=== PATIENT | male | born 1945 | race Caucasian/White ===

== ENCOUNTER 2017-12-29 13:51 | Inpatient (IN) | payer MEDICARE, BC ==
[~2017-12-29] VITALS: Ht 182.9 cm; Wt 113.4 kg
--- NOTE | 2017-12-29 13:57 | ER Report ---
History and Physical Time Seen By MD: 13:59 HPI/ROS CHIEF COMPLAINT: Cough, headache and malaise HISTORY OF PRESENT ILLNESS: This is a 72-year-old male who presents to the emergency department for a cough, headache and malaise. Patient was sent from urgent care today for concerns about a community-acquired pneumonia and consideration of a possible admission to the hospital. [place] and developed a cough generalized headache and some malaise. Patient also had some bright red blood per rectum, history kidney failure, had elevated wbc's at urgent care with a left shift. Was also noted to be anemic. Patient was also noted to have some circumoral cyanosis at urgent care. Positive Hemoccult stool. recently diagnosed with rhonchi does, there was a questionable right lower lobe infiltrate per the provider at urgent care. The patient states that on Friday he developed a mild cough presently getting worse nonproductive with some increased shortness of breath. Patient also states that since then he's had some generalized malaise, headache. Patient states that it's very painful to the right side of his chest when he coughs. Patient denies fevers, visual changes, no chills, no rashes. REVIEW OF SYSTEMS: Constitutional: No fever, no chills. Eyes: No discharge. ENT: No sore throat. Cardiovascular: As above. Respiratory: As above. Gastrointestinal: As above. Genitourinary: No hematuria. Musculoskeletal: No back pain. Skin: No rashes. Neurological: As above. Allergies: Coded Allergies: No Known Drug Allergies (Unverified , 12/29/17) Home Meds Reported Medications Potassium Chloride (POTASSIUM CHLORIDE) 10 Meq Tab.er.prt, 30 MEQ PO QDAY 12/29/17 Spironolactone (ALDACTONE) 50 Mg Tablet, 50 MG PO DAILY 12/29/17 Furosemide (FUROSEMIDE) 80 Mg Tablet, 1 TAB PO DAILY, TAB 12/29/17 Febuxostat (ULORIC) 40 Mg Tablet, 40 MG PO DAILY 12/29/17 Metolazone (METOLAZONE) 2.5 Mg Tablet, 2.5 MG PO M,W,F 12/29/17 Metoprolol Succinate (METOPROLOL SUCCINATE) 25 Mg Tab.er.24h, 1 TAB PO QDAY, TAB 12/29/17 Esomeprazole Magnesium (Esomeprazole Magnesium) 40 Mg Capsule.dr, 40 MG PO BID 12/29/17 Apixaban (Eliquis) 5 Mg (74 Tabs) Tab.ds.pk, 5 MG PO BID 12/29/17 Discontinued Reported Medications Spironolactone (SPIRONOLACTONE) 25 Mg Tablet, 50 MG PO DAILY, TAB 12/29/17 Furosemide (FUROSEMIDE) 40 Mg Tablet, 2 TAB PO QDAY, TAB 12/29/17 Aspirin (ASPIR 81) 81 Mg Tablet.dr, 81 MG PO QDAY, TAB 12/29/17 Past Medical/Surgical History Patient has a past medical and surgical history of A. fib, hypertension, GERD, gallbladder disease, cholecystectomy, carpal tunnel release, bilateral knee replacements, bilateral shoulder surgery, back surgery. 40+ years of smoking history. DVT. Reviewed Nurses Notes: Yes Constitutional Vital Sign - Last 24 Hours 12/29/17 12/29/17 12/29/17 12/29/17 13:56 14:00 14:00 14:15 Temp 97.8 Pulse 94 91 84 Resp 22 15 B/P (MAP) 136/102 140/95 (110) Pulse Ox 95 98 98 O2 Delivery Room Air O2 Flow Rate 2.0 12/29/17 12/29/17 12/29/17 12/29/17 14:30 14:45 15:00 15:15 Pulse 77 80 78 72 Resp 14 15 21 9 B/P (MAP) 147/85 (105) 134/89 (104) 149/70 (96) 141/78 (99) Pulse Ox 96 99 98 99 12/29/17 12/29/17 12/29/17 12/29/17 15:30 15:45 15:56 16:15 Pulse 67 66 71 Resp 8 15 11 B/P (MAP) 135/68 (90) 122/42 (68) 137/74 (95) 112/58 (76) Pulse Ox 100 100 100 12/29/17 16:30 Pulse 74 Resp 15 B/P (MAP) 149/70 (96) Pulse Ox 99 Intake and Output 12/29/17 12/29/17 12/30/17 14:59 22:59 06:59 Intake Total 500 ml Balance 500 ml Physical Exam General Appearance: The patient is alert, has no immediate need for airway protection and no signs of toxicity, lips are pale with some mild circumoral cyanosis. Eyes: Pupils equal and round no pallor or injection. Pale conjunctiva. ENT, Mouth: Pale mucous membranes are moist. Respiratory: There are no retractions, lungs are clear to auscultation, slightly diminished in the right lower lobe. Cardiovascular: Regular rate and rhythm, no murmurs, clicks or rubs. Gastrointestinal: Abdomen is soft and non tender, no masses, bowel sounds normal. light hematochezia. Neurological: Alert and oriented 4. Moving all extremities. Following all commands. No focal neuro deficits. Skin: Warm and dry, no rashes. Musculoskeletal: Neck is supple non tender. Extremities are nontender, nonswollen and have full range of motion. DIFFERENTIAL DIAGNOSIS: After history and physical exam differential diagnosis was considered for shortness of breath including but not limited to pulmonary infectious process, COPD, asthma, pulmonary embolus and congestive heart failure. Medical Decision Making Data Points Laboratory Hematology Test 12/29/17 14:12 Troponin I < 0.012 ng/ml Chemistry Test 12/29/17 14:12 Troponin I < 0.012 ng/ml EKG/Imaging EKG Interpretation 12 lead EKG: [place] EKG 1446. Rhythm: Normal sinus rhythm, ventricular rate 78 bpm. [place]: normal QRS: normal ST segments: No ST depression or elevation identified. No previous EKG to compare to. ED Course/Re-evaluation Clinical Indication for ER IV: Hydration, IV Access ED Course The patient was admitted to room. A history and physical or pain. Differential diagnoses were considered. An IV was started. I did not repeat the CBC or chemistry. I did add a troponin which was negative. EKG showing normal sinus rhythm.CBC showing WBCs 14.1 with a left shift, hemoglobin 9.7 hematocrit 28.8, chemistry showing potassium 3.3, BUN 60, creatinine 3.50, GFR 17.3, patient does have a known history of renal disease has been evaluated by a him assistant couple of years ago in [place]. The patient was sent from urgent care in the was aware that his white blood cell count was elevated as well as his poor kidney function. My concern with his shortness of breath as well as pleuritic chest pain on the right, even though anticoagulated would be the development of a PE as the patient has recently arrived in [place] less than 5 days ago. Patient also had a failed DVT outpatient treatment on Xarelto and was changed to Eliquis. Patient was also Hemoccult stool positive. I did speak with Dr. Anjali Barry regarding the patient's case as noted below and she felt he would be better served in a hospital that could provide him with a VQ scan as we cannot do a CTA due to the patient's kidney function, also consideration of IVC filter and a scope looking for a lower GI bleed. I discussed this with the patient and he said that he would not be able to [facility] and would never have an IVC filter placed as noted below at which time I did contact Dr. Anjali Barry again and ultimately the patient was admitted to the hospital for anemia, GI bleed, shortness of breath and chest pain. They will try for a VQ scan tomorrow. And consult with Dr. Sarabia for possible colonoscopy.Patient was typed and screened, given a 500 mL normal saline bolus. The patient and other questions or concerns at this time and was admitted to the medical unit. 12/29/2017 3:29:41 pm I did speak with Dr. Anjali Barry, the hospital list on- call regarding the patient's case. I'm having the images pushed over from urgent care to our system and she will evaluate the chest x-ray and will make a decision after this. 12/29/2017 4:38:05 pm I did speak with Dr. Anjali Barry regarding the patient's case as noted above and she did initially feel that it would be best to send the patient [facility] for possible VQ scan possible IVC filter implantation as well as monitoring of his renal function and a scope for GI bleed. I did talk to the patient regarding the concerns about admitting him to the hospital here as we don't have all of the resources available, the patient said he would never get out of IVC filter placed, does not want to go to [facility] and added to which his is blind and is unable to fully care for herself he needs to help and she is unable to drive. 12/29/2017 4:39:39 pm I did call and talk to Dr. Anjali Barry again regarding the patient's and his concerns were, she is distally willing to accept the patient in to the hospitalist services for a GI bleed. I also talked to the Dr. Sarabia upon her request just to give him an update on the patient and possible scoping in the next several days. I did talk to the patient again and he is willing to the admitted to the hospital. The patient had no other questions or concerns at this time. Decision to Disposition Date: Dec 29, 2017 Decision to Disposition Time: 16:40 Depart Departure Latest Vital Signs Vital Signs Date Time Temp Pulse Resp B/P (MAP) Pulse Ox O2 Delivery O2 Flow Rate FiO2 12/29/17 16:30 74 15 149/70 (96) 99 12/29/17 14:00 2.0 12/29/17 13:56 97.8 Room Air Impression: Primary Impression: Lower GI bleed Additional Impressions: Anemia Cough Chest pain Condition: Improved Disposition: Admitted from ER Problem Qualifiers Additional Impressions: Anemia Anemia type: iron deficiency Iron deficiency anemia type: unspecified iron deficiency Qualified Codes: D50.9 - Iron deficiency anemia, unspecified Chest pain Chest pain type: chest pain on breathing Qualified Codes: R07.1 - Chest pain on breathing SAMIRA ZAMORA-EDUARDO Dec 29, 2017 13:57
[2017-12-29] MEDS ORDERED: FURO-47 PO (14:10)
[2017-12-29] MEDS ORDERED: ESOM40CA6 PO (14:10)
[2017-12-29] MEDS ORDERED: APIX5TAB4 PO (14:10)
[2017-12-29] MEDS ORDERED: SPIR25TA78 PO (14:10)
[2017-12-29] MEDS ORDERED: METO25TA23 PO (14:10)
[2017-12-29] MEDS ORDERED: FEBU40TA2 PO (14:10)
[2017-12-29] MEDS ORDERED: ASPI-1471 PO (14:10)
[2017-12-29] MEDS ORDERED: METO2.5T15 PO (14:10)
[2017-12-29] MEDS ORDERED: POTA-23 PO (14:10)
[2017-12-29] MEDS ORDERED: NS(*) 0.9% 500 ML BAG 500 ML IV ONE (14:30)
--- NOTE | 2017-12-29 14:52 | EKG ---
[facility] PATIENT NAME: MEHRAN KANG : [id number] MR: [id number] V: [id number] EXAM DATE: ORDERING PHYSICIAN: SAMIRA ZAMORA TECHNOLOGIST: YAMIL Test Reason : SOB Blood Pressure : / mmHG Vent. Rate : 078 BPM Atrial Rate : 078 BPM P-R Int : 154 ms QRS Dur : 096 ms QT Int : 424 ms P-R-T Axes : 045 041 026 degrees QTc Int : 483 ms Normal sinus rhythm Nonspecific ST-T wave changes Prolonged QT Abnormal ECG No previous ECGs available Confirmed by LUIS FELIPE CARRERO ([id number]) on 12/29/2017 8:54:41 PM Referred By: CLAY Confirmed By:LUIS FELIPE CARRERO
--- NOTE | 2017-12-29 17:22 | General Surgery Consultation ---
History of Present Illness Requesting Physician dr misbah barreto Reason for Consult blood per rectum Chief Complaint shortness of breath History of Present Illness 72 yo male who recently moved to [place]. he has a history of a fib and is on eliquis. he has a history of dvt. he has htn. he noticed a little blood on the tissue when he wipes the last few days. no black stools. no bloody stools no clots. he has had loose stools. no abdominal pain. he had an egd 2 years ago which revealed benign gastric polyps. he had a colonoscopy 2 years ago that showed diverticulosis and 2 small polyps. no smoking and no nsaid use. History Home Meds Reported Medications Febuxostat (ULORIC) 40 Mg Tablet, 40 MG PO DAILY 12/29/17 Spironolactone (SPIRONOLACTONE) 25 Mg Tablet, 50 MG PO DAILY, TAB 12/29/17 Metolazone (METOLAZONE) 2.5 Mg Tablet, 2.5 MG PO M,W,F 12/29/17 Metoprolol Succinate (METOPROLOL SUCCINATE) 25 Mg Tab.er.24h, 1 TAB PO QDAY, TAB 12/29/17 Furosemide (FUROSEMIDE) 40 Mg Tablet, 2 TAB PO QDAY, TAB 12/29/17 Esomeprazole Magnesium (Esomeprazole Magnesium) 40 Mg Capsule.dr, 40 MG PO BID 12/29/17 Potassium Chloride (KLOR-CON 10) 10 Meq Tablet.er, 30 MEQ PO BID 12/29/17 Apixaban (Eliquis) 5 Mg (74 Tabs) Tab.ds.pk, 5 MG PO BID 12/29/17 Aspirin (ASPIR 81) 81 Mg Tablet.dr, 81 MG PO QDAY, TAB 12/29/17 Allergies: Coded Allergies: No Known Drug Allergies (Unverified , 12/29/17) Review of Systems Respiratory: Shortness of Breath Exam Vital Signs Vital Signs Date Time Temp Pulse Resp B/P (MAP) Pulse Ox O2 Delivery O2 Flow Rate FiO2 12/29/17 16:45 75 27 123/37 (65) 98 12/29/17 13:56 97.8 Room Air General Appearance: Alert, Awake, No Acute Distress GI: Abd Soft and Non-Tender Assessment and Plan Problems: (1) Lower GI bleed Status: Acute Assessment & Plan: pt currently anticoagulated. he does not describe significant bleeding but his hgb is low at 9.7. he had a recent egd and colonoscopy and if he has no significant bleeding prob does not require endoscopy at this time. will check cbc and watch for blood per rectum. will scope if he appears to be bleeding and he is no longer anticoagulated. Copies to: ROME ARCHER MD Venous Thromboembolism Antithrombotics Is Pt On Any Antithrombotics?: Yes ROME ARCHER MD Dec 29, 2017 17:22
[2017-12-29 17:39] VITALS: BP 148/88
[2017-12-29 18:56] VITALS: BP 134/87
--- NOTE | 2017-12-29 19:17 | History & Physical ---
History of Present Illness Chief Complaint The patient is a 72 year old male with PMH significant for atrial fibrillation and hx of DVT who presents with chest pain, shortness of breath and dizziness since arriving in [place] last after moving from [place], [place]. History of Present Illness The patient states that he drove from [place], [place] last week. He arrived in [place] afternoon and developed symptoms of dizziness, cough, headache and shortness of breath on Friday. The patient drove 8 hours a day but stopped every 1.5 to 2 hours to use the restroom due to diuretic therapy. He has a history of chronic LE edema after multiple knee surgeries. He also has a history of DVT in his L lower leg which developed while he was taking Xarelto for a fib. He was switched to Coumadin but didn't like it and is now on Eliquis 5mg bid. He has had no further trouble. He has had chronic GERD and had chest pain which he was told was likely due to esophageal spasm 2 weeks ago. He was evaluated for chest pain and had a nuclear stress test which he reports was negative for ischemia. The patient also complains of loose stools over the past week. He states that the stool is brown and free of BRB, but when he wipes, there has been BRB on the toilet paper for the past 3-4 days. He has also had some rectal incontinence with the loose stool when he coughs. He does have some BRP on the incontinence pad with this. He denies history of hemorrhoids. He does admit that his rectum has been sore and irritated. He denies melena. He states his stools have been greenish brown. He had and EGD and colonoscopy 2 years ago. He reportedly had some gastric polyps. 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 He has a history of chronic renal failure and saw his roll out manager about a month ago. He states he has had stage 4 CKD. The patient denies chills but states his thought he felt a bit warm on Friday. His cough was initially productive of a dark brown sputum but now his sputum is thick and white. He initially presented to Acute Care and had labs done (see other visit "send-in " for results). His d-dimer was 0.37. WBC was elevated at 14K. Creatinine was 3.5. Potassium was 3.3. Hgb 9.7. CXR done at Urgent Care was "pushed" to [facility]. It was negative for any acute process. History Problems: (1) Neuropathy Status: Chronic (2) Gout Status: Chronic (3) Leg edema Status: Chronic (4) HTN (hypertension) Status: Chronic (5) GERD (gastroesophageal reflux disease) Status: Chronic (6) CKD (chronic kidney disease), stage IV Status: Chronic (7) CHRONIC ATRIAL FIBRILLATION Status: Chronic (8) DVT (deep venous thrombosis) Status: Resolved Home Meds Reported Medications Potassium Chloride (POTASSIUM CHLORIDE) 10 Meq Tab.er.prt, 30 MEQ PO QDAY 12/29/17 Spironolactone (ALDACTONE) 50 Mg Tablet, 50 MG PO DAILY 12/29/17 Furosemide (FUROSEMIDE) 80 Mg Tablet, 1 TAB PO DAILY, TAB 12/29/17 Febuxostat (ULORIC) 40 Mg Tablet, 40 MG PO DAILY 12/29/17 Metolazone (METOLAZONE) 2.5 Mg Tablet, 2.5 MG PO M,W,F 12/29/17 Metoprolol Succinate (METOPROLOL SUCCINATE) 25 Mg Tab.er.24h, 1 TAB PO QDAY, TAB 12/29/17 Esomeprazole Magnesium (Esomeprazole Magnesium) 40 Mg Capsule.dr, 40 MG PO BID 12/29/17 Apixaban (Eliquis) 5 Mg (74 Tabs) Tab.ds.pk, 5 MG PO BID 12/29/17 Discontinued Reported Medications Spironolactone (SPIRONOLACTONE) 25 Mg Tablet, 50 MG PO DAILY, TAB 12/29/17 Furosemide (FUROSEMIDE) 40 Mg Tablet, 2 TAB PO QDAY, TAB 12/29/17 Aspirin (ASPIR 81) 81 Mg Tablet.dr, 81 MG PO QDAY, TAB 12/29/17 Allergies: Coded Allergies: No Known Drug Allergies (Unverified , 12/29/17) Patient History: FH: CAD (coronary artery disease) MOTHER Other Social/Family Hx The patient moved to [place] last from [place], [place]. He is . 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 He was in the . His father before he was born in war. Hx Smoking: Yes Hx Alcohol Use: Yes Hx Substance Use Disorder: No Social Drug Use: Currently Social Drugs: Marijuana (Medical marijuana and oils.) History of IV Drug Use: No Review of Systems Constitutional: Fever ( felt he was slightly warm to the touch.), No Chills Neurological: Weakness, Dizziness Eyes: No Vision Change ENT: No Hearing Loss Cardiovascular: Chest Pain (Pleuritic chest pain with deep breaths.) Respiratory: Shortness of Breath, Cough Gastrointestinal: No Nausea, No Vomiting, Diarrhea (Loose stools. Some BRB with wiping.), No Hematemesis, No Melena Genitourinary: Other (Frequency of urination on diuretics.) Musculoskeletal: Pain (DJD, knee surgeries, shoulder surgeries, back surgery.) Psychiatric: Depression, Anxiety Exam Vital Signs Vital Signs Date Time Temp Pulse Resp B/P (MAP) Pulse Ox O2 Delivery O2 Flow Rate FiO2 12/29/17 18:56 98.5 70 134/87 (103) 95 Nasal Cannula 0.5 12/29/17 17:39 12 General Appearance: Alert, Awake, No Acute Distress, Afebrile Neuro: No Gross deficits Eyes: PERRLA Cardiovascular: Regular Rate and Rhythm Respiratory: Clear to Auscultation GI: Abd Soft and Non-Tender Extremities: Warm, Perfused, Other (No significant edema. No calf tenderness. Bilateral well healed scars over knees.) Integumentary: Skin Intact without Lesion / Mass Psych: Alert & Oriented X3, Appropriate Mood & Affect Medical Decision Making Data Points Item Value Date Time Troponin I < 0.012 ng/ml 12/29/17 1412 Item Value Date Time Prothrombin Time 17.1 seconds H 12/29/17 1153 Prothromb Time International Ratio 1.37 12/29/17 1153 D-Dimer Quantitative (PE/DVT) 0.37 ug/ml 12/29/17 1153 White Blood Count 14.1 k/uL H 12/29/17 1153 Red Blood Count 3.65 M/uL L 12/29/17 1153 Hemoglobin 9.7 g/dL L 12/29/17 1153 Hematocrit 28.8 % L 12/29/17 1153 Mean Corpuscular Volume 78.9 fL L 12/29/17 1153 Mean Corpuscular Hemoglobin 26.4 pg 12/29/17 1153 Mean Corpuscular Hemoglobin Concent 33.5 g/dL 12/29/17 1153 Red Cell Distribution Width 15.1 % H 12/29/17 1153 Platelet Count 474 K/uL H 12/29/17 1153 Mean Platelet Volume 6.9 fL L 12/29/17 1153 Neutrophils (%) (Auto) 73.2 % H 12/29/17 1153 Lymphocytes (%) (Auto) 14.7 % L 12/29/17 1153 Monocytes (%) (Auto) 10.1 % 12/29/17 1153 Eosinophils (%) (Auto) 1.4 % 12/29/17 1153 Basophils (%) (Auto) 0.6 % 12/29/17 115 Nucleated RBC Relative Count (auto) 0.1 /100WBC 12/29/17 1153 Neutrophils # (Auto) 10.3 K/uL H 12/29/17 1153 Lymphocytes # (Auto) 2.1 K/uL 12/29/17 1153 Monocytes # (Auto) 1.4 K/uL H 12/29/17 1153 Eosinophils # (Auto) 0.2 K/uL 12/29/17 1153 Basophils # (Auto) 0.1 K/uL 12/29/17 1153 Nucleated RBC Absolute Count (auto) 0.01 K/uL 12/29/17 1153 Peripheral Blood Smear No Y/N 12/29/17 1153 Sodium Level 140 mmol/L 12/29/17 1153 Potassium Level 3.3 mmol/L L 12/29/17 1153 Chloride Level 95 mmol/L L 12/29/17 1153 Carbon Dioxide Level 23 mmol/L 12/29/17 1153 Blood Urea Nitrogen 60 mg/dl H 12/29/17 1153 Creatinine 3.50 mg/dl H 12/29/17 1153 Glomerular Filtration Rate Calc 17.3 12/29/17 1153 Random Glucose 140 mg/dl H 12/29/17 1153 Calcium Level 10.2 mg/dl 12/29/17 1153 Total Bilirubin 0.6 mg/dl 12/29/17 1153 Aspartate Amino Transf (AST/SGOT) 55 U/L H 12/29/17 1153 Alanine Aminotransferase (ALT/SGPT) 45 U/L 12/29/17 1153 Alkaline Phosphatase 98 U/L 12/29/17 1153 Total Protein 8.6 gm/dl H 12/29/17 1153 Albumin 5.0 g/dl 12/29/17 1153 Troponin I < 0.012 ng/ml 12/29/17 1412 EKG / Imaging EKG Interpretation FACILITY: [facility] [place] PATIENT NAME: MEHRAN KANG : [id number] MR: [id number] V: [id number] EXAM DATE: ORDERING PHYSICIAN: SAMIRA ZAMORA TECHNOLOGIST: YAMIL Test Reason : SOB Blood Pressure : / mmHG Vent. Rate : 078 BPM Atrial Rate : 078 BPM P-R Int : 154 ms QRS Dur : 096 ms QT Int : 424 ms P-R-T Axes : 045 041 026 degrees QTc Int : 483 ms Normal sinus rhythm ST abnormality, possible digitalis effect Prolonged QT Abnormal ECG No previous ECGs available Referred By: CLAY Confirmed By: [id number] T: / Imaging CXR done at Urgent Care read as negative by radiologist. Negative also to my review. Pre-Admit Course Medical Record Review: Yes (Labs from Urgent Care, CXR, ER notes.) Assessment and Plan Problems: (1) Altitude sickness Status: Acute Assessment & Plan: The patient's symptoms of SOB, dizziness, and headache developed shortly after arriving in [place]. He developed a cough as well. CXR from Urgent Care was negative. He notes that he felt much better immediately after being placed on O2 in the ER. Will continue O2 and repeat CXR in am. (2) Pleuritic chest pain Status: Acute Assessment & Plan: May be due to altitude sickness. CXR negative. D-dime 0.37. He does have a history of DVT about 5-6 years ago and has been on Eliquis. VQ scan ordered for tomorrow. (3) Loose stools Status: Acute Assessment & Plan: For about one week. No associated symptoms. If persistent, consider stool studies. (4) Rectal irritation Status: Acute Assessment & Plan: He has been having BRB just when he wipes after BM and also some on a pad that he has been wearing due to rectal incontinence with the loose stools. He denies melena or BRB mixed with the stools he passes. (5) CHRONIC ATRIAL FIBRILLATION Status: Chronic Assessment & Plan: Currently in sinus rhythm. Will continue Eliquis. (6) CKD (chronic kidney disease), stage IV Status: Chronic Assessment & Plan: He has some acute worsening. Will gently hydrate and follow labs. Renally dose meds. (7) HTN (hypertension) Status: Chronic Assessment & Plan: Continue metoprolol. Will hold diuretics for now due to acute worsening of renal function. (8) GERD (gastroesophageal reflux disease) Status: Chronic Assessment & Plan: He is on Nexium at home. Will place on pantoprazole here. (9) Leg edema Status: Chronic Assessment & Plan: He is on Lasix 80mg with metolazone 2.5mg -- and spironolactone 50mg daily. Will hold for now. He takes KCl 30meq bid with his diuretics. (10) DVT (deep venous thrombosis) Status: Resolved Assessment & Plan: On Eliquis for a fib and hx of DVT. (11) Gout Status: Chronic Assessment & Plan: He is on Uloric 40mg daily. (12) ANEMIA, UNSPECIFIED Status: Acute Assessment & Plan: Unclear if this is acute or chronic. May be due to CKD and/ or some blood loss from rectal irritation. Repeat CBC and get iron studies in am. Time Spent on Plan of Care: < 30 min Venous Thromboembolism Antithrombotics Is Pt On Any Antithrombotics?: Yes Exam Sepsis Risk: Possible Sepsis Risk Problem Qualifiers (1) Altitude sickness: Encounter type: initial encounter Qualified Codes: T70.29XA - Other effects of high altitude, initial encounter LUIS FELIPE TORRES MD Dec 29, 2017 19:16
[2017-12-29] MEDS ORDERED: FURO80TA70 PO (19:20)
[2017-12-29] MEDS ORDERED: SPIR50TA30 PO (19:20)
[2017-12-29] MEDS ORDERED: POTA-53 PO (19:24)
[2017-12-29] MEDS: POTASSIUM CHL 10 MEQ TABCR PO SCH (20:03)
[2017-12-29] MEDS ORDERED: APIXABAN 2.5 MG TABLET PO SCH (21:00)
[2017-12-29] MEDS: PANTOPRAZOLE SOD 40 MG TABEC PO SCH (21:06)
[2017-12-29] MEDS: NS(*) 0.9% 1000 ML BAG 1,000 ML IV PRN (21:22)
[2017-12-29] MEDS: MELATONIN 3 MG TAB PO PRN (22:33)
[2017-12-30 03:45] VITALS: BP 94/51
[2017-12-30 05:48] LABS: PLATELET COUNT, AUTOMATED 351 K/uL (150-450)
--- NOTE | 2017-12-30 06:41 | RADIOLOGY IMAGING REPORT ---
FACILITY: [facility] [place] PATIENT NAME: Dima Dey : 1945 MR: [id number] V: [id number] EXAM DATE: ORDERING PHYSICIAN: LUIS FELIPE TORRES [place]CHN[place]: [place] [facility] [place] : 1945 Visit/Account:[id number] Date of Sevice: 12/30/2017 PORTABLE CHEST: Indication: Chest pain. Technique: A single frontal film was obtained. Comparison: None. Skeletal and soft tissue structures: There are chronic degenerative changes in the thoracic spine. No acute skeletal deformity is identified. Heart and mediastinum: Within normal limits. Lung gill: Well-expanded. No focal or diffuse opacities. Pleural spaces: Unremarkable. Impression: No acute process. Report Dictated By: Dima Kellogg MD at 12/30/2017 6:35 AM Report E-Signed By: Dima Kellogg MD at 12/30/2017 6:36 AM WSN:[id number]
--- NOTE | 2017-12-30 07:05 | General Surgery Progress Note ---
Subjective Progress Notes Subjective no complaints. Physical Exam Vital Signs Date Time Temp Pulse Resp B/P (MAP) Pulse Ox O2 Delivery O2 Flow Rate FiO2 12/30/17 04:02 91 12/30/17 03:45 98.4 57 14 94/51 (65) Room Air 12/29/17 23:02 0.5 General Appearance: Alert, Awake, No Acute Distress GI: Soft and Non-Tender (had bm last pm and he says only a little blood with wiping. no bloody stool) Result Diagram: 12/30/17 0515 12/30/1715 Assessment and Plan Problems: (1) Lower GI bleed Status: Acute Assessment & Plan: pt currently anticoagulated. he does not describe significant bleeding but his hgb is low at 9.7. he had a recent egd and colonoscopy and if he has no significant bleeding prob does not require endoscopy at this time. will check cbc and watch for blood per rectum. will scope if he appears to be bleeding and he is no longer anticoagulated. 12/30/17 hgb down a little today. one bm overnight without blood in stool just with wiping. Exam Sepsis Risk: No Definite Risk ROME ARCHER MD Dec 30, 2017 07:05
[2017-12-30 07:24] VITALS: BP 117/65
[2017-12-30] MEDS: PANTOPRAZOLE SOD 40 MG TABEC PO SCH ×2 (08:49→21:33)
[2017-12-30] MEDS: METOPROLOL SUCC XL 25 MG TABCR PO SCH (08:49)
[2017-12-30] MEDS: POTASSIUM CHL 10 MEQ TABCR PO SCH ×2 (08:49→16:29)
[2017-12-30] MEDS: FEBUXOSTAT 40 MG TABLET PO SCH (09:00)
[2017-12-30] MEDS ORDERED: PATIENT'S OWN MED PO SCH (09:00)
--- NOTE | 2017-12-30 11:31 | Hospitalist Progress Note ---
Subjective Progress Notes Subjective This patient was admitted for anemia and GI bleeding. He had no acute events overnight. Patient Complains of: Cardiovascular: No: Chest Pain Respiratory: No: Shortness of Breath Physical Exam Vital Signs Date Time Temp Pulse Resp B/P (MAP) Pulse Ox O2 Delivery O2 Flow Rate FiO2 12/30/17 07:27 92 Room Air 12/30/17 07:24 98.4 67 16 117/65 (82) 12/29/17 23:02 0.5 Intake and Output 12/31/17 06:59 Intake Total 240 ml Balance 240 ml Intake Oral 240 ml Neuro: No Gross deficits Cardiovascular: Regular Rate and Rhythm Respiratory: Clear to Auscultation Extremities: No Edema Integumentary: No Cyanosis Result Diagram: 12/30/1715 12/30/17514 Assessment and Plan Problems: (1) Acute anemia Assessment & Plan: He does have a low Hgb, but has not yet required transfusion. (2) Altitude sickness Status: Acute Assessment & Plan: He did complain of headache and shortness of breath. His symptoms improved with supplemental oxygen. He has been able to wean to room air today. (3) Pleuritic chest pain Status: Acute Assessment & Plan: He has been on chronic treatment with Eliquis, which is currently on hold. A VQ scan is pending. (4) Rectal irritation Status: Acute Assessment & Plan: He is complaining of bright red blood with wiping. General surgery is following him for this. (5) CHRONIC ATRIAL FIBRILLATION Status: Chronic Assessment & Plan: He is currently in sinus rhythm.He is on chronic treatment with metoprolol and Eliquis. The Eliquis is on hold as above. (6) CKD (chronic kidney disease), stage IV Status: Chronic (7) HTN (hypertension) Status: Chronic Assessment & Plan: He is on chronic treatment with metoprolol, Spironolactone, Lasix, and metolazone. The metoprolol is ordered, but the other medications remain on hold. (8) GERD (gastroesophageal reflux disease) Status: Chronic Assessment & Plan: He is on chronic treatment with Nexium. (9) Leg edema Status: Chronic Assessment & Plan: Daily weights are ordered. (10) DVT (deep venous thrombosis) Status: Resolved Assessment & Plan: He does have a history of DVT. (11) Gout Status: Chronic Assessment & Plan: He is on Uloric 40mg daily. Exam Sepsis Risk: No Definite Risk Problem Qualifiers (1) Altitude sickness: Encounter type: initial encounter Qualified Codes: T70.29XA - Other effects of high altitude, initial encounter (2) HTN (hypertension): Hypertension type: essential hypertension Qualified Codes: I10 - Essential ( primary) hypertension AURE HUMPHREY DO Dec 30, 2017 11:30
[2017-12-30 11:46] VITALS: BP 119/54
--- NOTE | 2017-12-30 12:11 | RADIOLOGY IMAGING REPORT ---
FACILITY: [facility] PATIENT NAME: Dima Dey : 1945 MR: [id number] V: [id number] EXAM DATE: ORDERING PHYSICIAN: LUIS FELIPE TORRES TECHNOLOGIST: Location: [facility] Patient: Dima Dey : 1945 Visit/Account:[id number] Date of Sevice: 12/30/2017 LUNG PERFUSION AND VENTILATION EXAMINATION: Nuclear Medicine Ventilation Perfusion Lung Scan Additional Pertinent history: History of DVT, pleuritic chest pain COMPARISON STUDIES: X-ray examination of the chest from earlier today. TECHNIQUE: 39.0 mCi aerosolized technetium 99 DTPA was administered by inhalation. 2.5 mCi Tc MAA was injected intravenously. Gamma camera images were obtained of the chest in various orientations. FINDINGS: Lung ventilation radiotracer distribution: Mild activity is noted over the stomach on ventilation linda ges in indicative of swallowing of the aerosolized technetium. Minimal air trapping right base. Lung perfusion radiotracer distribution: No evidence of wedgelike vascular defect. Correlation to chest x-ray: No infiltrate, effusion or evidence of CHF. IMPRESSION: 1.By modified PIOPED criteria, low probability for pulmonary embolus. Report Dictated By: Ferdinand Bernstein MD at 12/30/2017 12:03 PM Report E-Signed By: Ferdinand Bernstein MD at 12/30/2017 12:07 PM WSN:[id number]
[2017-12-30 14:12] VITALS: BP 99/56
--- NOTE | 2017-12-30 16:35 | Medical Nutrition Therapy ---
Nutrition Anthropometrics Height (Inches): 72.00 Height (Calculated Centimeters: 182.792760 Weight (Pounds): 245 Weight (Calculated Kilograms): 111.130 BMI: 33 Lan Nutrition Score: Adequate Lan Nutrition Risk Score: 21 Dietary Referral Nutrition Risk Factors: Nutrition Risk Comment: Physical Findings Physical Appearance: Obese BMI 30-39 Skin Appearance Skin Appearance: Edema Edema Location Modifier: Both Edema Location: Lower Extremity Type of Edema: Degree of Edema: 1+ Gastrointestinal Symptoms GI Symtoms: Diarrhea, Change in Bowel Pattern Tube Present: Bowel Sounds: Recent Bowel Pattern: Stool Characteristics: Soft, Loose Nutritional Diagnosis Nutritional Risk Acuity 2: Chronic Renal Failure Nutritional Risk Acuity 3: Nutrit Anemia, GERD, GI Bleed Past Medical History: Lower GI bleed, chest pain, GERD, CKD stage IV, rectal irritation, CAF, leg edema, gout, altitude sickness, HTN, anemia Nutritional Acuity: 2-Moderate Nutrition Diagnosis: Decreased Nutrient Needs, Altered GI Function Nutrition Etiology: Physiological Causes Nutrition Problem/Etiology/Sym: Decrease protein needs related to physiological causes AEB elevated BUN 60. Altered GI function related to physiological causes AEB lower GI bleed. Energy Requirement: 2162 ([place] adj kcal BMI > 27.5 ) Protein Requirement: 78 (.7g/kg ) Fluid Requirement: 2162 (1ml/kcal) Diet Type: Diet as Tolerated ROMANA/REG Nutrition Intervention: Change diet (Low protein diet related to CKD stage IV) Nutrition Monitoring & Eval Nutrition Goals: Eat 75-100% Meal RD Patient Assessment Time: [address] Assessment Type: RD Assessment Patient Nutrition Acuity: 2-Moderate Follow Up Date: Jan 02, 2018 Nutritional Comment: 6/ Pt admitted for GI bleed, anemia, chest pain, cough and shortness of breath. Pt is on ROMANA/RAG diet with 100% oral intake. Pt had light red blood around rectum. He reportedly had some gastric polyps. 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 He has a history of chronic renal failure. Pt had elevated BUN (60), random blood glucose (131) and low H/H, no blood transfusion needed at this time. Will continue to monitor pt progress, labs and encourage intake. SAVANAH IBARRA Dec 30, 2017 12:46
[2017-12-30 20:00] VITALS: BP 121/64
[2017-12-30] MEDS: NS(*) 0.9% 1000 ML BAG 1,000 ML IV PRN (20:20)
[2017-12-30] MEDS: MELATONIN 3 MG TAB PO PRN (21:33)
[2017-12-31] VITALS (9 sets, daily range): BP systolic 108–133; BP diastolic 51–74
[2017-12-31 05:53] LABS: PLATELET COUNT, AUTOMATED 339 K/uL (150-450)
[2017-12-31] MEDS: NS(*) 0.9% 1000 ML BAG 1,000 ML IV PRN (06:24)
[2017-12-31] MEDS ORDERED: NS(*) 0.9% 500 ML BAG 500 ML ONE (08:00)
--- NOTE | 2017-12-31 08:01 | General Surgery Progress Note ---
Subjective Progress Notes Subjective no complaints Physical Exam Vital Signs Date Time Temp Pulse Resp B/P (MAP) Pulse Ox O2 Delivery O2 Flow Rate FiO2 12/31/17 07:29 94 Room Air 12/31/17 07:25 98.4 65 14 108/54 (72) 12/29/17 23:02 0.5 Result Diagram: 12/31/17 0531 12/31/17 0531 Assessment and Plan Problems: (1) Lower GI bleed Status: Acute Assessment & Plan: pt currently anticoagulated. he does not describe significant bleeding but his hgb is low at 9.7. he had a recent egd and colonoscopy and if he has no significant bleeding prob does not require endoscopy at this time. will check cbc and watch for blood per rectum. will scope if he appears to be bleeding and he is no longer anticoagulated. 12/30/17 hgb down a little today. one bm overnight without blood in stool just with wiping. 12/31/17 hgb continues to drift down will do endoscopies tomorrow Exam Sepsis Risk: No Definite Risk ROME ARCHER MD Dec 31, 2017 08:01
[2017-12-31] MEDS: FEBUXOSTAT 40 MG TABLET PO SCH (09:00)
[2017-12-31] MEDS: POTASSIUM CHL 10 MEQ TABCR PO SCH ×2 (09:25→17:02)
[2017-12-31] MEDS: METOPROLOL SUCC XL 25 MG TABCR PO SCH (09:25)
[2017-12-31] MEDS: PANTOPRAZOLE SOD 40 MG TABEC PO SCH ×2 (09:25→20:57)
--- NOTE | 2017-12-31 11:34 | Hospitalist Progress Note ---
Subjective Progress Notes Subjective He reports "about the same". Dyspnea on exertion. Hgb/Hct have dropped further. Physical Exam Vital Signs Date Time Temp Pulse Resp B/P (MAP) Pulse Ox O2 Delivery O2 Flow Rate FiO2 12/31/17 10:59 97.7 63 16 108/51 12/31/17 07:29 94 Room Air 12/29/17 23:02 0.5 Intake and Output 01/01/18 06:59 Intake Total 490 ml Balance 490 ml Intake Oral 240 ml Blood Product 250 ml General Appearance: Alert, Awake Neuro: No Gross deficits Cardiovascular: Other (fairly regular distant tones) Respiratory: Clear to Auscultation GI: Soft and Non-Tender Musculoskeletal: Other (healed scars over both knees) Extremities: Warm, Perfused Integumentary: Scaly / Dry Skin (possible candidal changes between 4-5th digits left foot) Psych: Alert & Oriented X3 Result Diagram: 12/31/17 0531 12/31/17 0531 Assessment and Plan Problems: (1) Acute anemia Assessment & Plan: He does have a low Hgb/Hct and continuing to drop. As he is symptomatic, will plan on transfusion of 2 units PRBC today. Will check erythropoietin level prior to blood. It appears he will need endoscopy to see if he has a site for the blood loss. Will discuss with Dr. Sarabia. (2) Altitude sickness Status: Acute Assessment & Plan: He did complain of headache and shortness of breath. The anemia may have exacerbated this a swell. His symptoms improved with supplemental oxygen. He has been able to wean to room air. (3) Pleuritic chest pain Status: Acute Assessment & Plan: He has been on chronic treatment with Eliquis, which is currently on hold due to potential bleeding. VQ scan is low probability. We will need to consider re-start of his anticoagulation in near future pending endoscopy. (4) CHRONIC ATRIAL FIBRILLATION Status: Chronic Assessment & Plan: He is currently in sinus rhythm. He has been on chronic treatment with metoprolol and Eliquis. The Eliquis is on hold as above. Monitor. (5) CKD (chronic kidney disease), stage IV Status: Chronic Assessment & Plan: Creatinins has improved with IV fluids. Will see if can leonel records from his guest specialist, Dr. Rodrigues in [place]. (6) HTN (hypertension) Status: Chronic Assessment & Plan: He is on chronic treatment with metoprolol, Spironolactone, Lasix, and metolazone. The metoprolol is ordered, but the other medications remain on hold. (7) GERD (gastroesophageal reflux disease) Status: Chronic Assessment & Plan: He is on chronic treatment with PPI (Nexium). Currently on Protonix. (8) Leg edema Status: Chronic Assessment & Plan: At present edema is minimal. Monitor. Daily weights are ordered. (9) DVT (deep venous thrombosis) Status: Resolved Assessment & Plan: He does have a history of DVT. (10) Gout Status: Chronic Assessment & Plan: He is on Uloric 40mg daily. Exam Sepsis Risk: No Definite Risk Problem Qualifiers (1) Altitude sickness: Encounter type: initial encounter Qualified Codes: T70.29XA - Other effects of high altitude, initial encounter (2) HTN (hypertension): Hypertension type: essential hypertension Qualified Codes: I10 - Essential ( primary) hypertension NANCY TORRES MD Dec 31, 2017 11:34
[2017-12-31] MEDS ORDERED: BISACODYL 5 MG TABEC PO ONE (13:00)
[2017-12-31] MEDS ORDERED: METOCLOPRAMIDE 10 MG TAB PO ONE (13:00)
[2017-12-31] MEDS ORDERED: MAGNESIUM CITRATE 300 ML BTL PO ONE ×2 (14:00→19:00)
[2017-12-31] MEDS: NYSTATIN 100,000 U/GM PWD 15GM TP SCH (20:58)
[2018-01-01] VITALS (9 sets, daily range): BP systolic 91–134; BP diastolic 49–76
[2018-01-01 05:49] LABS: PLATELET COUNT, AUTOMATED 320 K/uL (150-450)
[2018-01-01] MEDS ORDERED: PROPOFOL EMUL(*) 10MG/ML 20 ML 20 ML ONE ×3 (07:20→12:16)
[2018-01-01] MEDS ORDERED: NORMOSOL R SOLN(*) 1000 ML BAG 1,000 ML IV ONE (07:25)
[2018-01-01] MEDS: POTASSIUM CHL 10 MEQ TABCR PO SCH ×2 (07:25→16:22)
--- NOTE | 2018-01-01 07:29 | Post Operative Progress Note ---
Post Operative Progress Note Date: Jan 01, 2018 Time: 13:09 Surgeon: ayse Anesthesia: dr mccall Pre-Op Diagnosis: anemia Post-Op Diagnosis: 3 mm polyp right colon, 3, 2-3 mm polyps in transverse colon, 3 mm polyp at 15 cm and 3 small 1-2 mm polyps in rectum. inflamed benign gastric polyps and gastritis of the antrum Procedure(s): egd with biopsy and polypectomy and colonoscopy and polypectomy ROME ARCHER MD Jan 01, 2018 07:29
[2018-01-01] MEDS: NS(*) 0.9% 1000 ML BAG 1,000 ML IV PRN (08:35)
[2018-01-01] MEDS: METOPROLOL SUCC XL 25 MG TABCR PO SCH (08:35)
[2018-01-01] MEDS: PANTOPRAZOLE SOD 40 MG TABEC PO SCH ×2 (08:35→20:29)
[2018-01-01] MEDS: FEBUXOSTAT 40 MG TABLET PO SCH (08:35)
[2018-01-01] MEDS: NYSTATIN 100,000 U/GM PWD 15GM TP SCH ×2 (08:38→20:29)
[2018-01-01] MEDS ORDERED: INFLUENZA VIRUS VAC 0.5 ML SYR IM ONLY ONE (09:00)
[2018-01-01] MEDS ORDERED: FAMOTIDINE(*) 20MG/50ML PREMIX 50 ML IVPB ONE (10:30)
--- NOTE | 2018-01-01 11:07 | Hospitalist Progress Note ---
Subjective Progress Notes Subjective The patient denies new complaints. Per nursing staff his telemetry did show occasional runs of SVT. Physical Exam Vital Signs Date Time Temp Pulse Resp B/P (MAP) Pulse Ox O2 Delivery O2 Flow Rate FiO2 01/01/18 09:14 62 01/01/18 07:55 92 Room Air 01/01/18 07:47 98.4 14 119/71 (87) 12/29/17 23:02 0.5 Intake and Output 01/02/18 06:59 Intake Total 880 ml Balance 880 ml Intake Oral 0 ml IV Total 880 ml # Voids 2 # Bowel Movements 2 General Appearance: Alert, Awake, No Acute Distress Neuro: No Gross deficits Eyes: PERRLA Cardiovascular: Regular Rate and Rhythm Respiratory: Clear to Auscultation GI: Soft and Non-Tender Extremities: Warm, Perfused, Other (Trace edema bilaterally.) Integumentary: Skin Intact without Lesion / Mass Psych: Alert & Oriented X3, Appropriate Mood & Affect Result Diagram: 01/01/1852001/01/18520 Assessment and Plan Problems: (1) Acute anemia Assessment & Plan: He did present with a low Hgb/Hct and continued to drop. As he was symptomatic, he was transfused with 2 units PRBC 12/31y. Erythropoietin level drawn prior to blood and is pending. He is getting endoscopy to see if he has a site for the blood loss. Will continue to hold Eliquis for now but he will need to restart it at some point due to findings on telemetry. (2) Altitude sickness Status: Acute Assessment & Plan: He did complain of headache and shortness of breath. The anemia may have exacerbated this a swell. His symptoms improved with supplemental oxygen. He has been able to wean to room air. (3) Pleuritic chest pain Status: Acute Assessment & Plan: He has been on chronic treatment with Eliquis, which is currently on hold due to potential bleeding. VQ scan is low probability. We will need to consider re-start of his anticoagulation in near future pending endoscopy. (4) CHRONIC ATRIAL FIBRILLATION Status: Chronic Assessment & Plan: He is currently in sinus rhythm. He has been on chronic treatment with metoprolol and Eliquis. The Eliquis is on hold as above. Telemetry monitoring has shown a few runs of SVT. (5) CKD (chronic kidney disease), stage IV Status: Chronic Assessment & Plan: Creatinins has improved with IV fluids. Will see if can leonel records from his job checker, Dr. Rodrigues in [place]. (6) HTN (hypertension) Status: Chronic Assessment & Plan: He is on chronic treatment with metoprolol, Spironolactone, Lasix, and metolazone. The metoprolol is ordered, but the other medications remain on hold. (7) GERD (gastroesophageal reflux disease) Status: Chronic Assessment & Plan: He is on chronic treatment with PPI (Nexium). Currently on Protonix. (8) Leg edema Status: Chronic Assessment & Plan: At present edema is minimal. Monitor. Daily weights are ordered. (9) DVT (deep venous thrombosis) Status: Resolved Assessment & Plan: He does have a history of DVT. (10) Gout Status: Chronic Assessment & Plan: He is on Uloric 40mg daily. Time Spent on Plan of Care: < 30 min Exam Sepsis Risk: No Definite Risk Problem Qualifiers (1) Altitude sickness: Encounter type: initial encounter Qualified Codes: T70.29XA - Other effects of high altitude, initial encounter (2) HTN (hypertension): Hypertension type: essential hypertension Qualified Codes: I10 - Essential ( primary) hypertension LUIS FELIPE TORRES MD Jan 01, 2018 11:07
[2018-01-01] MEDS ORDERED: SUCRALFATE 1 GM TAB PO SCH (16:00)
[2018-01-01] MEDS: SUCRALFATE 1 GM TAB PO SCH ×2 (16:22→20:29)
[2018-01-01] MEDS: MELATONIN 3 MG TAB PO PRN (21:57)
[2018-01-02 04:21] VITALS: BP 134/70
[2018-01-02] MEDS: SUCRALFATE 1 GM TAB PO SCH (06:02)
[2018-01-02 06:35] LABS: PLATELET COUNT, AUTOMATED 295 K/uL (150-450)
[2018-01-02 07:38] VITALS: BP 110/60
[2018-01-02] MEDS: METOPROLOL SUCC XL 25 MG TABCR PO SCH (08:32)
[2018-01-02] MEDS: PANTOPRAZOLE SOD 40 MG TABEC PO SCH (08:32)
[2018-01-02] MEDS: POTASSIUM CHL 10 MEQ TABCR PO SCH (08:33)
[2018-01-02] MEDS: FEBUXOSTAT 40 MG TABLET PO SCH (09:00)
[2018-01-02] MEDS ORDERED: SUCR1TAB51 PO (09:07)
[2018-01-02] MEDS ORDERED: ASPI81TA94 PO (09:07)
[2018-01-02] MEDS: NYSTATIN 100,000 U/GM PWD 15GM TP SCH (09:15)
--- NOTE | 2018-01-02 09:15 | Hospitalist Depart ---
Discharge Summary Reason for Hosp/Final Diag: (1) Acute anemia Hospital Course & Plan: He did present with a low Hgb. He was transfused with 2 units of red cells. His Hgb is now stable. (2) Lower GI bleed Status: Acute Hospital Course & Plan: He did undergo upper and lower endoscopy. It is reported that he was found to have polyps and gastritis. Biopsies are pending. He was started on Protonix and sucralfate. (3) Altitude sickness Status: Acute Hospital Course & Plan: He did complain of headache and shortness of breath. He did improve with supplemental oxygen, and has now been tolerating room air. (4) Pleuritic chest pain Status: Acute Hospital Course & Plan: A VQ scan was negative. (5) CHRONIC ATRIAL FIBRILLATION Status: Chronic Hospital Course & Plan: He is currently in sinus rhythm, but has had a few intermittent runs of atrial fibrillation. He is on metoprolol. The Eliquis has been discontinued secondary to bleeding. He was advised to start baby aspirin in the next several days. Full anticoagulation may be considered if he has no ongoing bleeding. (6) CKD (chronic kidney disease), stage IV Status: Chronic Hospital Course & Plan: His creatinine has improved some with IV fluids, but he will need to follow up with nephrology. (7) HTN (hypertension) Status: Chronic Hospital Course & Plan: He is on chronic treatment with metoprolol, Spironolactone, Lasix, and metolazone. The diuretics have been discontinued. (8) Gout Status: Chronic Hospital Course & Plan: He is on Uloric 40mg daily. Departure Latest Vital Signs Vital Signs 12/29/17 01/02/18 23:02 07:38 Temp 97.5 Pulse 65 Resp 16 B/P (MAP) 110/60 (77) Pulse Ox 88 O2 Delivery Room Air O2 Flow Rate 0.5 Weight (Pounds): 250 Weight (Ounces): 8.0 Result Diagram: 01/02/1851701/02/18517 Condition: Improved Discharge: Home, Self Care Discharge Instructions Home Meds Active Scripts Aspirin (ASPIRIN) 81 Mg Tab.chew, 81 MG PO QDAY, #30 TAB.CHEW Prov:AURE HUMPHREY DO 01/02/18 Sucralfate (SUCRALFATE) 1 Gm Tablet, 1 GM PO ACHS1, #60 TAB Prov:AURE HUMPHREY 01/02/18 Reported Medications Potassium Chloride (POTASSIUM CHLORIDE) 10 Meq Tab.er.prt, 30 MEQ PO QDAY 12/29/17 Febuxostat (ULORIC) 40 Mg Tablet, 40 MG PO DAILY 12/29/17 Metoprolol Succinate (METOPROLOL SUCCINATE) 25 Mg Tab.er.24h, 1 TAB PO QDAY, TAB 12/29/17 Esomeprazole Magnesium (Esomeprazole Magnesium) 40 Mg Capsule.dr, 40 MG PO BID 12/29/17 Discontinued Reported Medications Spironolactone (ALDACTONE) 50 Mg Tablet, 50 MG PO DAILY 12/29/17 Furosemide (FUROSEMIDE) 80 Mg Tablet, 1 TAB PO DAILY, TAB 12/29/17 Metolazone (METOLAZONE) 2.5 Mg Tablet, 2.5 MG PO M,W,F 12/29/17 Apixaban (Eliquis) 5 Mg (74 Tabs) Tab.ds.pk, 5 MG PO BID 12/29/17 Spironolactone (SPIRONOLACTONE) 25 Mg Tablet, 50 MG PO DAILY, TAB 12/29/17 Furosemide (FUROSEMIDE) 40 Mg Tablet, 2 TAB PO QDAY, TAB 12/29/17 Aspirin (ASPIR 81) 81 Mg Tablet.dr, 81 MG PO QDAY, TAB 12/29/17 Diet: Regular Activity: As Tolerated Venous Thromboembolism Antithrombotics Is Pt On Any Antithrombotics?: Yes Problem Qualifiers (1) Altitude sickness: Encounter type: initial encounter Qualified Codes: T70.29XA - Other effects of high altitude, initial encounter (2) HTN (hypertension): Hypertension type: essential hypertension Qualified Codes: I10 - Essential ( primary) hypertension AURE HUMPHREY Jan 02, 2018 09:15
--- NOTE | 2018-01-02 11:00 | Medical Nutrition Therapy ---
Nutrition Anthropometrics Height (Inches): 72.00 Height (Calculated Centimeters: 182.398951 Weight (Pounds): 250 Weight (Calculated Kilograms): 113.398 BMI: 33 Lan Nutrition Score: Adequate Lan Nutrition Risk Score: 22 Dietary Referral Nutrition Risk Factors: Nutrition Risk Comment: Physical Findings Physical Appearance: Obese BMI 30-39 Skin Appearance Skin Appearance: Edema Edema Location Modifier: Both Edema Location: Lower Extremity Type of Edema: Degree of Edema: 1+ Gastrointestinal Symptoms GI Symtoms: Blood in Stool, Change in Bowel Pattern Tube Present: Bowel Sounds: Recent Bowel Pattern: Stool Characteristics: Soft, Loose Nutritional Diagnosis Nutritional Risk Acuity 2: Chronic Renal Failure Nutritional Risk Acuity 3: Nutrit Anemia, GERD, GI Bleed Past Medical History: Lower GI bleed, chest pain, GERD, CKD stage IV, rectal irritation, CAF, leg edema, gout, altitude sickness, HTN, anemia Nutritional Acuity: 2-Moderate Nutrition Diagnosis: Decreased Nutrient Needs, Altered GI Function Nutrition Etiology: Physiological Causes Nutrition Problem/Etiology/Sym: Decrease protein needs related to physiological causes AEB elevated BUN creatinine 1.9. Altered GI function related to physiological causes AEB lower GI bleed. Energy Requirement: 2162 ([employer] [place] adj kcal BMI > 27.5 ) Protein Requirement: 78 (.7g/kg ) Fluid Requirement: 2162 (1ml/kcal) Diet Type: Diet as Tolerated ROMANA/REG Nutrition Monitoring & Eval Nutrition Goals: Eat 75-100% Meal RD Patient Assessment Time: [address] Assessment Type: RD Assessment Patient Nutrition Acuity: 2-Moderate Follow Up Date: Jan 06, 2018 Nutritional Comment: 6/5 Pt admitted for GI bleed, anemia, chest pain, cough and shortness of breath. Pt is on ROMANA/RAG diet with 100% oral intake. Pt had light red blood around rectum. He reportedly had some gastric polyps. 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 He has a history of chronic renal failure. Pt had elevated BUN (60), random blood glucose (131) and low H/H, no blood transfusion needed at this time. Will continue to monitor pt progress, labs and encourage intake. MT 01/02 Pt continues on regular diet with 100% oral intake. Pt had low H/H with hgb (9.0) and red blood cell of (3.46) today. Pt was given blood transfusion of 2 units of red cell for anemia. Creatinine (1.9) and random blood glucose (115). Continue to monitor pt progress, labs and encourage intake. SAVANAH IBARRA Jan 02, 2018 10:48
--- NOTE | 2018-01-02 11:58 | NACHTIGAL EGD ---
EVENT DATE: January 02, 2018 SURGEON: Frantz Sarabia MD ANESTHESIOLOGIST: Bear Vogel M.D. ANESTHESIA: IV Sedation. PREOPERATIVE DIAGNOSIS Anemia. POSTOPERATIVE DIAGNOSIS Antral gastritis and benign inflamed gastric polyps. PROCEDURE PERFORMED Esophagogastroduodenoscopy with polypectomy and biopsy for H. pylori. DESCRIPTION OF PROCEDURE The patient was placed in left lateral decubitus position and given intravenous sedation. A flexible gastroscope was inserted. The esophagus appeared to be normal and distended nicely. No abnormalities were noted. GE junction was 40. We entered the stomach, which was was empty. We passed through the pylorus to the second and third portions of the duodenum, which were normal. The duodenal bulb was normal. The pylorus had inflammation and red streaking out from the pylorus into the antrum. No discrete ulcer. In the body of the stomach, he had multiple gastric polyps. Some of these were quite red. A couple of them in the fundus were almost eroded on the end. Those two in the gastric fundus were removed with polypectomy, snare cautery and retrieved. We also biopsied for H. pylori. The scope was retroflexed. I could not identify any hiatal hernia. No ulcer cavity was noted, just the inflammation. He had quite a few of these gastric polyps. Several of them were red. The procedure was then terminated.The patient tolerated the procedure well. No apparent complication. [facility]
--- NOTE | 2018-01-02 12:25 | NACHTIGAL COLONOSCOPY ---
EVENT DATE: January 01, 2018 SURGEON: Frantz Sarabia MD ANESTHESIOLOGIST: Bear Vogel M.D. 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 POSTOPERATIVE DIAGNOSIS Multiple colonic polyps, all small, 1-3 mm in size. PROCEDURE PERFORMED Colonoscopy with polypectomy. DESCRIPTION OF PROCEDURE The patient was placed in the left lateral decubitus position and given intravenous sedation. The rectal examination was unremarkable. The flexible colonoscope was inserted and advanced to the cecum. He had a decent prep. He had some thick liquid stool lining the colon, making perfect visualization more difficult but no solid material. We suctioned and irrigated a lot of this to get better visualization. There was no sign of any blood in the colon. The cecum was normal. In the right colon, he had a small 3 mm polyp. this was removed with polypectomy snare cautery and retrieve. The rest of the right colon was normal. In the proximal transverse colon, he had three 3 mm polyps a few cm apart. These were removed with polypectomy snare cautery and retrieved. The distal transverse colon appeared to be normal. Descending and sigmoid colon were normal. At 15 cm, he had another 3 mm polyp. This was removed with snare and retrieve. In the rectum, he had three 1-2 mm polyps in the rectum. These were removed with the cold cup and snare. No active bleeding. No sign of any older bleeding. The patient tolerated the procedure well. No apparent complications. MTDD
== END 2018-01-02 10:20 | disposition home or self-care (01) | DRG 394 ==
LOC: ER 13:58 → MED 16:43
PROVIDERS: ADMIT Internal Medicine; ATTEND Internal Medicine
PROC: 0DBE8ZX Excision of Large Intestine, Via Natural or Artificial Opening Endoscopic, Diagnostic (ICD-10-PCS; 2018-01-01)
PROC: 0DBL8ZX Excision of Transverse Colon, Via Natural or Artificial Opening Endoscopic, Diagnostic (ICD-10-PCS; 2018-01-01)
PROC: 0DB68ZX Excision of Stomach, Via Natural or Artificial Opening Endoscopic, Diagnostic (ICD-10-PCS; principal; 2018-01-01 11:40)
PROC: 0DBP8ZX Excision of Rectum, Via Natural or Artificial Opening Endoscopic, Diagnostic (ICD-10-PCS; 2018-01-01 11:40)
DX: K31.7 Polyp of stomach and duodenum (principal); K92.1 Melena; N18.4 Chronic kidney disease, stage 4 (severe); D62 Acute posthemorrhagic anemia; K63.5 Polyp of colon; K62.1 Rectal polyp; K29.70 Gastritis, unspecified, without bleeding; R07.1 Chest pain on breathing; I48.2 Chronic atrial fibrillation; I12.9 Hypertensive chronic kidney disease with stage 1 through stage 4 chronic kidney disease, or unspecified chronic kidney disease; M1A.9XX0 Chronic gout, unspecified, without tophus (tophi); K21.9 Gastro-esophageal reflux disease without esophagitis; G62.9 Polyneuropathy, unspecified; R60.0 Localized edema; T70.29XA Other effects of high altitude, initial encounter; W94.11XA Exposure to residence or prolonged visit at high altitude, initial encounter; Z79.01 Long term (current) use of anticoagulants; Z90.49 Acquired absence of other specified parts of digestive tract; Z96.653 Presence of artificial knee joint, bilateral; Z87.891 Personal history of nicotine dependence; Z86.718 Personal history of other venous thrombosis and embolism
CPT/HCPCS: 36415; 36430; 71045; 78582; 82040; 82247; 82310; 82374; 82435; 82565; 82668; 82947; 84075; 84132; 84155; 84295; 84450; 84460; 84484; 84520; 85025; 85379; 85610; 86850; 86900; 86901; 86920; 87077; 88305; 88344; 93005; 96360; 99285; A9539; A9540; J2704; J3490; J7030; J7040; J8597; P9016

== ENCOUNTER → 2017-12-29 | Outpatient (REF) | payer MEDICARE, BC ==
[~2017-12-29] MED LIST: APIX5TAB4 PO; ASPI-1471 PO; ESOM40CA6 PO; FEBU40TA2 PO; FURO-47 PO; FURO80TA70 PO; METO2.5T15 PO; METO25TA23 PO; POTA-23 PO; POTA-53 PO; SPIR25TA78 PO; SPIR50TA30 PO
[2017-12-29 12:31] LABS: PLATELET COUNT, AUTOMATED 474 K/uL (150-450)
[2017-12-29 12:38] LABS: INR 1.37
== END ==
PROVIDERS: ATTEND Family Medicine
DX: K92.1 Melena (principal); R42 Dizziness and giddiness; R07.9 Chest pain, unspecified; R06.02 Shortness of breath
CPT/HCPCS: 82040; 82247; 82310; 82374; 82435; 82565; 82947; 84075; 84132; 84155; 84295; 84450; 84460; 84520; 85025; 85379; 85610

== ENCOUNTER 2018-01-04 19:15 | Emergency (ER) | payer MEDICARE, BC ==
[~2018-01-04 19:15] MED LIST changes: +ASPI81TA94 PO; +SUCR1TAB51 PO
--- NOTE | 2018-01-04 19:24 | ER Report ---
History and Physical Time Seen By MD: 19:24 HPI/ROS CHIEF COMPLAINT: swelling and pain in left arm HISTORY OF PRESENT ILLNESS: This is a 72 year old male. He was in the hospital recently. Had an IV in the left antecubital area. Since discharge is having some pain and redness, warmth and swelling in that area and forearm. Always has some numbness in the arm, but no change in this. He has a history of DVT and atrial fibrillation, has been taken off of Eliquis and put on baby aspirin; last hospitalization this month was for GI bleeding. He has no shortness of breath. Occasional short few second episodes of sharp upper left chest pain. No nausea of vomiting. Allergies: Coded Allergies: No Known Drug Allergies (Unverified , 01/04/18) Home Meds Active Scripts Aspirin (ASPIRIN) 81 Mg Tab.chew, 81 MG PO QDAY, #30 TAB.CHEW Prov:AURE HUMPHREY DO 01/02/18 Sucralfate (SUCRALFATE) 1 Gm Tablet, 1 GM PO ACHS1, #60 TAB Prov:AURE HUMPHREY DO 01/02/18 Reported Medications Potassium Chloride (POTASSIUM CHLORIDE) 10 Meq Tab.er.prt, 30 MEQ PO QDAY 12/29/17 Febuxostat (ULORIC) 40 Mg Tablet, 40 MG PO DAILY 12/29/17 Metoprolol Succinate (METOPROLOL SUCCINATE) 25 Mg Tab.er.24h, 1 TAB PO QDAY, TAB 12/29/17 Esomeprazole Magnesium (Esomeprazole Magnesium) 40 Mg Capsule.dr, 40 MG PO BID 12/29/17 Discontinued Reported Medications Spironolactone (ALDACTONE) 50 Mg Tablet, 50 MG PO DAILY 12/29/17 Furosemide (FUROSEMIDE) 80 Mg Tablet, 1 TAB PO DAILY, TAB 12/29/17 Metolazone (METOLAZONE) 2.5 Mg Tablet, 2.5 MG PO M,W,F 12/29/17 Apixaban (Eliquis) 5 Mg (74 Tabs) Tab.ds.pk, 5 MG PO BID 12/29/17 Spironolactone (SPIRONOLACTONE) 25 Mg Tablet, 50 MG PO DAILY, TAB 12/29/17 Furosemide (FUROSEMIDE) 40 Mg Tablet, 2 TAB PO QDAY, TAB 12/29/17 Aspirin (ASPIR 81) 81 Mg Tablet.dr, 81 MG PO QDAY, TAB 12/29/17 Reviewed Nurses Notes: Yes Hx Smoking: Yes Smoking Status: Former Smoker, Heavy Tobacco Smoker Exposure to Second Hand Smoke?: Yes Hx Substance Use Disorder: No Hx Alcohol Use: Yes Constitutional Vital Sign - Last 24 Hours 01/04/18 01/04/18 19:23 21:58 Temp 97.8 Pulse 80 85 Resp 15 17 B/P (MAP) 141/86 119/73 (88) Pulse Ox 96 94 Physical Exam General Appearance: The patient is alert. No acute distress. Respiratory: Breathing easily and unlabored. Lungs are clear to auscultation. Cardiovascular: Regular rate and rhythm. No murmurs, gallops or rubs. Normal capillary refill. slight edema or swelling compared to right. Normal pulses. Neurological: Alert and oriented x3. Has chronic paresthesias in the left arm. Skin: Warm and dry. Some redness and warmth in forearm and antecubital area and up onto the upper arm. Musculoskeletal: Some tenderness with palpation but very mild. DIFFERENTIAL DIAGNOSIS: After history and physical exam, differential diagnosis was considered for swelling, warmth and redness in arm possible DVT, phlebitis, or cellulitis. Medical Decision Making EKG/Imaging Imaging EXAMINATION: Unilateral upper extremity deep vein duplex Doppler ultrasound HISTORY: Left forearm swelling and redness. COMPARISON: None. FINDINGS: Grayscale compression, duplex and color Doppler interrogation of the left upper extremity veins was performed. Internal jugular vein: Negative. Subclavian vein: Negative. Axillary vein: Negative. Basilic vein: There is occlusive thrombus in the mid to distal basilic vein. Cephalic vein: Negative. Brachial veins: Negative. Normal pulsatility and respiratory phasicity of the venous waveforms proximally. Other findings: There is thrombosis of a superficial vein in the forearm near the radial vein. IMPRESSION: Occlusive thrombosis of the mid to distal left basilic vein. Occlusive thrombosis of a superficial vein in the left forearm near the radial vein. Report Dictated By: Nolan Browne MD at 01/04/2018 8:55 PM ED Course/Re-evaluation ED Course Discussed the results of the ultrasound showing DVT in the left upper extremity. Based on risk factors of GI bleeding, and having a new DVT and his risk of clotting, recommended going back on [place]. This will be the higher 10 mg twice a day dose for 7 days and then he can decrease it to the 5 mg twice a day at that point. Recommended follow-up with primary care. He needs to establish with a primary care provider here in town. Decision to Disposition Date: Jan 04, 2018 Decision to Disposition Time: 21:40 Depart Departure Latest Vital Signs Vital Signs Date Time Temp Pulse Resp B/P (MAP) Pulse Ox O2 Delivery O2 Flow Rate FiO2 01/04/18 21:58 85 17 119/73 (88) 94 01/04/18 19:23 97.8 Impression: Primary Impression: DVT (deep venous thrombosis) Condition: Improved Disposition: HOME OR SELF-CARE Referrals: NALLELY PENA MD Patient Instructions: Deep Venous Thrombosis (ED) Additional Instructions: Restart your Eliquis. Take your 5mg tablets, but take 2 tablets twice a day for the first 7 days, then decreased to one tablet twice a day after that. Please call the office of Dr. Pena to make an appointment with her for follow- up. Please watch for any signs of gastrointestinal bleeding. Problem Qualifiers Primary Impression: DVT (deep venous thrombosis) DVT location: upper extremity Affected thrombotic vein of extremity: other upper extremity vein Chronicity: acute Laterality: left Qualified Codes: I82.622 - Acute embolism and thrombosis of deep veins of left upper extremity NIMISHA MASON MD Jan 04, 2018 19:24
--- NOTE | 2018-01-04 21:04 | RADIOLOGY IMAGING REPORT ---
FACILITY: [facility] PATIENT NAME: Dima Dey : 1945 MR: [id number] V: [id number] EXAM DATE: ORDERING PHYSICIAN: NIMISHA MASON TECHNOLOGIST: [place] [facility] [place] Dima Dey : 1945 Visit/Account:[id number] Date of Sevice: 01/04/2018 ADDENDUM #1 These findings were discussed with NIMISHA MASON at 01/04/2018 9:03 PM. Report Dictated By: Nolan Browne MD at 01/04/2018 9:03 PM Report E-Signed By: Nolan Browne MD at 01/04/2018 9:03 PM ORIGINAL REPORT EXAMINATION: Unilateral upper extremity deep vein duplex Doppler ultrasound HISTORY: Left forearm swelling and redness. COMPARISON: None. FINDINGS: Grayscale compression, duplex and color Doppler interrogation of the left upper extremity veins was p erformed. Internal jugular vein: Negative. Subclavian vein: Negative. Axillary vein: Negative. Basilic vein: There is occlusive thrombus in the mid to distal basilic vein. Cephalic vein: Negative. Brachial veins: Negative. Normal pulsatility and respiratory phasicity of the venous waveforms proximally. Other findings: There is thrombosis of a superficial vein in the forearm near the radial vein. IMPRESSION: Occlusive thrombosis of the mid to distal left basilic vein. Occlusive thrombosis of a superficial vein in the left forearm near the radial vein. Report Dictated By: Nolan Browne MD at 01/04/2018 8:55 PM Report E-Signed By: Nolan Browne MD at 01/04/2018 9:01 PM WSN:[id number]
[2018-01-04 21:58] VITALS: BP 119/73
== END 2018-01-04 21:59 | disposition home or self-care (01) ==
LOC: ER 19:29
DX: I82.622 Acute embolism and thrombosis of deep veins of left upper extremity (principal)
CPT/HCPCS: 99284

== ENCOUNTER → 2018-02-11 | Outpatient (CLI) | payer MEDICARE, BC ==
[~2018-02-11] MED LIST changes: +APIX5TAB PO; +POTA20TA85 PO; -SPIR25TA78 PO; +SPIR25TA80 PO
[2018-02-11 15:13] LABS: PLATELET COUNT, AUTOMATED 441 K/uL (150-450)
== END ==
LOC: LAB 14:51
PROVIDERS: ATTEND Family Medicine
DX: N18.4 Chronic kidney disease, stage 4 (severe) (principal); I48.2 Chronic atrial fibrillation; D63.1 Anemia in chronic kidney disease
CPT/HCPCS: 36415; 82040; 82247; 82310; 82374; 82435; 82565; 82728; 82947; 84075; 84132; 84155; 84295; 84450; 84460; 84520; 85025

== ENCOUNTER 2018-03-16 10:00 | Outpatient (RCR) | payer MEDICARE, BC ==
--- NOTE | 2018-02-24 09:35 | PT INITIAL EVALUATION ---
MEDICAL DIAGNOSIS: Leg Edema TREATMENT DIAGNOSIS: Leg Edema, Venous Insufficiency, Phlebolymphedema, Renal Insufficiency DATE OF ONSET: 02/23/18 SUBJECTIVE: Dima is a 72 year old male presenting to physical therapy following an extensive history of B LE swelling. Pt reports that the swelling started years ago when he had his first knee surgeries primarily on the left LE , but then later on the R as well. Pt has a history of multiple surgeries including multiple TKA's on the the L LE secondary to infection and sepsis, and multiple arthroscopic surgeries and eventually a TKA on the R as well. With the onset of swelling pt was started on diuretics which were poorly managed resulting in kidney dysfunction as well as potassium deficiency. Recently pt is on new diuretics and swelling has improved, but remains present. Additionally pt reports neuropathic "zings" down B legs and pressure in the legs as well as heaviness secondary to swelling L>R. Pt denies any CHF, but does have a history of A-Fib. 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 Vericose veins are present B but no hemosiderin staining is present. Pt has hyperkeratosis along the base of the toes and in the retromalleolar area B both medial and laterally. ROM: Ankle ROM with minimal restrictions secondary to edema. Palpation: Pt has (-) Stemmer's sign on B dorsum with (+) Stemmer's sign on B 1st and 2nd digits. 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 Physical therapy consisting of complete decongestive therapy is indicated for this patient to improve function with ADL's. Secondary to kidney dysfunction precautions with gradual onset of treatment will occur with regular monitoring of condition. Short Term Goals In 4 weeks pt will decrease calf circumference to <40 cm B for improved function with ADL's. In 4 weeks pt will report subject edema impact on QOL to <39% for improved function with ADL's. In 4 weeks pt will be independent with edema management through HEP coupled with compression garment use for improved function with ADL's. In 4 weeks pt will improve LLIS to 28/72 or less for improved function with ADL' s. Patient's Goals Decrease edema in legs PLAN: Patient to be seen for Manual Therapy/STM/MET Strengthening/condition Range of Motion Stretching Neuromuscular Re-ed Closed Chain Program Posture/Body mechanics Gait Trg/Balance Trg Home Exercise Program [facility]./Manual Traction Therapeutic Activities 5x/Week for 4 Weeks If you have any questions, comments, or concerns about this report or plan, please contact me at . Thank you, Joleen Prater, PT, DPT, CLT MTDD
--- NOTE | 2018-03-11 11:26 | PT PLAN OF CARE ---
Physician: Maryanne Hall MD Patient is being seen: 5x/Week Therapist: Joleen Prater, PT, DPT, CLT Medical Diagnosis: Leg Edema Treatment Diagnosis: Leg Edema, Venous Insufficiency, Phlebolymphedema, Renal Insufficiency Date of Onset: 02/23/18 Date of Initial Evaluation: 02/23/18 Date patient was last seen: 03/11/18 Number of treatments: 11 Number of cancellations/No shows: 0 INTERVENTIONS: Manual Therapy/STM/MET Strengthening/condition Range of Motion Stretching Neuromuscular Re-ed Closed Chain Program Posture/Body mechanics Gait Trg/Balance Trg Home Exercise Program Mech./Manual Traction Therapeutic Activities GOALS: In 4 weeks pt will decrease calf circumference to <40 cm B for improved function with ADL's. In 4 weeks pt will report subject edema impact on QOL to <39% for improved function with ADL's. In 4 weeks pt will be independent with edema management through HEP coupled with compression garment use for improved function with ADL's. PATIENT'S GOAL: Decrease edema in legs Status of Patient's Goals: In Progress Patient Compliance: Excellent Prognosis: Good Reasons for continuing therapy: Dima shows excellent progression with CDT with good reductions throughout the entire LE. Pt reports better fitting shoes and clothing, improved ankle mobility, and decreased heaviness and discomfort. Pt has lingering edema around the ankle, but is progressing towards independent management with PT to discuss compression garments at next visit. MLD and compression wrapping with continue throughout progression towards independent management to resolve these lingering deficits. ROM: Ankle ROM with minimal restrictions secondary to edema. Palpation: Pt has (-) Stemmer's sign on B dorsum with (+) Stemmer's sign on B 1st and 2nd digits. Special Tests: Lymphedema Life Impact Scale (LLIS) EVAL: 51/72 Lymphedema Life Impact Scale (LLIS) EVAL: 72 Other Objective Findings: LE Circumferential Measures (L,R) in cm: EVAL: 1st digit: 9.7, 10, 2nd: 6.6, 6.9, Dorsum: 27.5, 27.5, Arch: 304, 29.4, Heel: 40.5 , 39.3, Figure 8: 67.5, 66.7, Above malleoli: 32.2, 32.1, Calf: 44.5, 44, Below Knee: 40.4, 40, above knee: 46.4, 46.1 LE Circumferential Measures (L,R) in cm: 03/11/18: 1st digit: 9.5, 9.7, 2nd: 6.6, 6.8, Dorsum: 26.4, 26.5, Arch: 27.7, 27.1, Heel: 37.9, 37.9, Figure 8: 62.9, 61.5, Above malleoli: 29.6, 29.5, Calf: 42.2, 41.4, Below Knee: 40.0, 39.9, above knee: 45.3, 44.6 If you have any questions, please feel free to contact me at [phone]. Thank you, Joleen Prater, PT, DPT, CLT MTDD
[~2018-03-16 10:00] MED LIST changes: +FERR325T24 PO
--- NOTE | 2018-03-16 11:39 | PT PLAN OF CARE ---
Physician: Maryanne Hall MD Patient is being seen: 5x/week Therapist: Joleen Prater, PT, DPT, CLT Medical Diagnosis: Leg Edema Treatment Diagnosis: Leg Edema, Venous Insufficiency, Phlebolymphedema, Renal Insufficiency Date of Onset: 02/23/18 Date of Initial Evaluation: 02/23/18 Date patient was last seen: 03/16/18 Number of treatments: 14 Number of cancellations/No shows: 0 INTERVENTIONS: Manual Therapy/STM/MET Strengthening/condition Range of Motion Stretching Neuromuscular Re-ed Closed Chain Program Posture/Body mechanics Gait Trg/Balance Trg Home Exercise Program Mech./Manual Traction Therapeutic Activities GOALS: In 4 weeks pt will decrease calf circumference to <40 cm B for improved function with ADL's. Not MET In 4 weeks pt will report subject edema impact on QOL to <39% for improved function with ADL's. MET In 4 weeks pt will be independent with edema management through HEP coupled with compression garment use for improved function with ADL's. MET PATIENT'S GOAL: Decrease edema in legs Status of Patient's Goals: In Progress Patient Compliance: Excellent Prognosis: Good Reasons for discharge from therapy: Dima is to discharge from physical therapy at this time secondary to completion of 2/3 functional goals. Pt shows significant reductions in circumferential volume of the leg and has associated increase in functional mobility and performance of self-care and ADL's. At this time pt is compliant with HEP and compression garment use and is to continue with this upon discharge. ROM: Ankle ROM with minimal restrictions secondary to edema. Palpation: Pt has (-) Stemmer's sign on B dorsum with (+) Stemmer's sign on B 1st and 2nd digits. Special Tests: Lymphedema Life Impact Scale (LLIS) EVAL: 51 Lymphedema Life Impact Scale (LLIS) EVAL: Lymphedema Life Impact Scale (LLIS) EVAL: Other Objective Findings: LE Circumferential Measures (L,R) in cm: EVAL: 1st digit: 9.7, 10, 2nd: 6.6, 6.9, Dorsum: 27.5, 27.5, Arch: 304, 29.4, Heel: 40.5 , 39.3, Figure 8: 67.5, 66.7, Above malleoli: 32.2, 32.1, Calf: 44.5, 44, Below Knee: 40.4, 40, above knee: 46.4, 46.1 LE Circumferential Measures (L,R) in cm: 03/11/18: 1st digit: 9.5, 9.7, 2nd: 6.6, 6.8, Dorsum: 26.4, 26.5, Arch: 27.7, 27.1, Heel: 37.9, 37.9, Figure 8: 62.9, 61.5, Above malleoli: 29.6, 29.5, Calf: 42.2, 41.4, Below Knee: 40.0, 39.9, above knee: 45.3, 44.6 LE Circumferential Measures (L,R) in cm: 03/16/18: 1st digit: 9.4, 9.4, 2nd: 6.6, 6.8, Dorsum: 25.7.4, 25.5, Arch: 27.5, 27.1, Heel: 36.5, 36.5, Figure 8: 62.9, 61.5, Above malleoli: 29.0, 29.0, Calf: 41, 41, Below Knee: 40.0, 39.5, above knee: 45.1, 45.5 If you have any questions, please feel free to contact me at [phone]. Thank you, Joleen Prater, PT, DPT, CLT MTDD
== END 2018-03-16 14:55 | disposition home or self-care (01) ==
LOC: PT 10:00
PROVIDERS: ATTEND Family Medicine
DX: R60.0 Localized edema (principal); I87.2 Venous insufficiency (chronic) (peripheral); I89.0 Lymphedema, not elsewhere classified; N18.9 Chronic kidney disease, unspecified
CPT/HCPCS: 97162

== ENCOUNTER 2018-04-03 09:50 | Outpatient (RCR) | payer MEDICARE, BC ==
--- NOTE | 2018-03-26 08:49 | PT INITIAL EVALUATION ---
MEDICAL DIAGNOSIS: Localized Edema TREATMENT DIAGNOSIS: Phlebolymphedema of B LE DATE OF ONSET: 03/25/18 SUBJECTIVE: Dima is a 72 year-old male presenting to physical therapy following recent return of edema in the B feet and ankles. Dima had previously been treated via Complete Decongestive Therapy (CDT) for phlebolymphedema of B LE from the knees down. Pt had successful gains in circumferential reductions and was progressed towards independent garment use. Since discharge pt reports poor compliance with HEP, but slight return in swelling into the feet with garment use. Pt reports shoes that were temporarily easy to don and now difficult and he wants to regain reductions and possibly advance compression garment strength to maintain reductions. Pt reports no pain at this time but slight return in neuropathy in toes. REHAB PROBLEM LIST: Increased Pain Decreased Balance Decreased Function Decreased ADL's Decreased Mobility PREVIOUS MEDICAL HISTORY: See EMR OCCUPATION: Retired OBJECTIVE: Pt has B swelling L>R from the lower portion of the gambino to the dorsum of the foot. Palpation: Stemmer's (+) on 1st and 2nd digits B, (-) on dorsum B. No pitting is present. Sensation: Pt reports occasional neuropathy in toes at the end of the day. Other Objective Findings: LE Circumferential Measures (L,R) in cm: Eval: 1st digit: 9.9, 10, 2nd: 6.8, 7.2, Dorsum: 28, 28.8, Arch: 29.9, 28.6, Heel: 39.9, 39.1, Figure 8: 64.5, 67.5, Above malleoli: 30.7, 31.5, Calf: 43.1, 41.5, Below Knee: 39.5, 40.2, above knee: 45.0, 45.5 ASSESSMENT: Pt presents with signs and symptoms of stage 1 return of phlebolymphedema in B feet and ankles. Physical therapy consisting of CDT is indicated for this pt to regain reductions in circumferential volume as listed by the above impairments and return to prior level of function with ADL's. Short Term Goals In 2 weeks pt will decrease the circumference of B dorsum to <26cm for improved function with ALD's. In 2 weeks pt will be compliant with independent compression garment use for circumferential maintenance for improved function with ADL's. Patient's Goals Decreased edema in feet PLAN: Patient to be seen for Manual Therapy/STM/MET Strengthening/condition Range of Motion Stretching Neuromuscular Re-ed Closed Chain Program Gait Trg/Balance Trg Home Exercise Program Mech./Manual Traction Therapeutic Activities 5x/Week for 2 Weeks If you have any questions, comments, or concerns about this report or plan, please contact me at . Thank you, Joleen Prater, PT, DPT, CLT MTDD
--- NOTE | 2018-04-03 10:46 | PT PLAN OF CARE ---
Physician: Maryanne Hall MD Patient is being seen: 5x/Week Therapist: Joleen Prater, PT, DPT, CLT Medical Diagnosis: Localized Edema Treatment Diagnosis: Phlebolymphedema of B LE Date of Onset: 03/25/18 Date of Initial Evaluation: 03/25/18 Date patient was last seen: 04/03/18 Number of treatments: 7 Number of cancellations/No shows: 0 INTERVENTIONS: Manual Therapy/STM/MET Strengthening/condition Range of Motion Stretching Neuromuscular Re-ed Closed Chain Program Gait Trg/Balance Trg Home Exercise Program Mech./Manual Traction Therapeutic Activities GOALS: In 2 weeks pt will decrease the circumference of B dorsum to <26cm for improved function with ALD's. MET In 2 weeks pt will be compliant with independent compression garment use for circumferential maintenance for improved function with ADL's. MET PATIENT'S GOAL: Decreased edema in feet Status of Patient's Goals: 2/2 MET Patient Compliance: Fair Prognosis: Good Reasons for discharge from therapy: Dima is to discharge from physical therapy at this time secondary to completion of all of his functional goals. Pt circumferential volume is now returned to his previous state of reduction with further gains achieved surrounding the knees. Pt has improved ankle mobility as well as decreased neuropathy in the feet. Secondary to reductions in edema surrounding the knee pt does report increased instability, but is also resistant to initiating strengthening to support the knee joint. PT recommended possibly a knee brace for further stability per pt request for a passive solution. Upon discharge pt is to continue with increased compression garments at 30-40mmHg to maintain gains as well as perform exercises to promote lymphatic return. Palpation: Stemmer's (-) on all digits, no pitting is present. Sensation: Pt reports decreased neuropathy Other Objective Findings: Initial LE Circumferential Measures (L,R) in cm: Eval: 1st digit: 9.9, 10, 2nd: 6.8, 7.2, Dorsum: 28, 28.8, Arch: 29.9, 28.6, Heel: 39.9, 39.1, Figure 8: 64.5, 67.5, Above malleoli: 30.7, 31.5, Calf: 43.1, 41.5, Below Knee: 39.5, 40.2, above knee: 45.0, 45.5 Discharge LE Circumferential Measures (L,R) in cm: Eval: 1st digit: 9.5, 9.5, 2nd: 6.5, 6.5, Dorsum: 26, 25.9, Arch: 27.5, 27.9, Heel: 37.1, 38, Figure 8: 63.5, 63.7, Above malleoli: 29.5, 29.9, Calf: 39.5, 40.3, Below Knee: 39.5, 39.4, above knee: 45.0, 45.5 If you have any questions, please feel free to contact me at [phone]. Thank you, Joleen Prater, PT, DPT, CLT MTDD
== END 2018-04-03 11:20 | disposition home or self-care (01) ==
LOC: PT 09:50
PROVIDERS: ATTEND Family Medicine
DX: I89.0 Lymphedema, not elsewhere classified (principal)
CPT/HCPCS: 97161

== ENCOUNTER → 2018-04-08 | Outpatient (CLI) | payer MEDICARE, BC ==
[2018-04-08 17:07] LABS: PLATELET COUNT, AUTOMATED 408 K/uL (150-450)
== END ==
LOC: LAB 16:36
PROVIDERS: ATTEND Family Medicine
DX: R73.01 Impaired fasting glucose (principal); N18.9 Chronic kidney disease, unspecified; D63.1 Anemia in chronic kidney disease
CPT/HCPCS: 36415; 82310; 82374; 82435; 82565; 82947; 83036; 84132; 84295; 84520; 85025

== ENCOUNTER → 2018-04-29 | Outpatient (CLI) | payer MEDICARE, BC ==
[2018-04-29 11:14] LABS: PLATELET COUNT, AUTOMATED 368 K/uL (150-450)
== END ==
LOC: LAB 10:45
PROVIDERS: ATTEND Internal Medicine Nephrology
DX: Z13.9 Encounter for screening, unspecified (principal); N18.3 Chronic kidney disease, stage 3 (moderate); E61.1 Iron deficiency
CPT/HCPCS: 36415; 82040; 82310; 82374; 82435; 82550; 82565; 82570; 82728; 82947; 83540; 83550; 83970; 84100; 84132; 84156; 84295; 84520; 85025

== ENCOUNTER 2018-05-08 09:00 | Outpatient (RCR) | payer MEDICARE, BC ==
--- NOTE | 2018-04-22 10:21 | PT INITIAL EVALUATION ---
MEDICAL DIAGNOSIS: Localized Edema TREATMENT DIAGNOSIS: Bilateral Lower Extremity Phlebolymphedema, Neuropathy DATE OF ONSET: 04/22/18 SUBJECTIVE: Dima is a 72 year-old male presenting to physical therapy following recent return of edema in the B feet and ankles. Dima had previously been treated via Complete Decongestive Therapy (CDT) for phlebolymphedema of B LE from the knees down. Pt had successful gains in circumferential reductions and was progressed towards independent garment use. Since discharge pt reports poor compliance with HEP, but slight return in swelling into the feet with garment use. Pt was increased to a higher level of compression garment at his last PT treatment, though pt reports that he has been inconsistent at wearing his higher level compression garments secondary to difficulty with donning and doffing. Additionally pt reports that he has moderate return in neuropathy which was previously reduced. He has decided that he would like to return to regain reductions as well as to restart an HEP as he feels he will actually do it this time around to maintain reductions. REHAB PROBLEM LIST: Increased Pain Decreased Balance Decreased Function Decreased ADL's Decreased Mobility PREVIOUS MEDICAL HISTORY: See EMR OCCUPATION: Retired OBJECTIVE: Pt has B swelling L>R from the lower portion of the gambino to the dorsum of the foot as well as just above the knees B. Palpation: Stemmer's (+) on 1st and 2nd digits B, (-) on dorsum B. No pitting is present. Sensation: Pt reports occasional neuropathy in toes. Other Objective Findings: LE Circumferential Measures (R,L) in cm: Eval: 1st digit: 10.0, 10.1, 2nd: 6.8, 6.7, Dorsum: 27.6, 27.7, Arch: 28.6, 28.3, Heel: 37.3, 37.8, Figure 8: 63.5, 63.7, Above malleoli: 29.6, 30, Calf: 41.1, 42.8, Below Knee: 40, 40.9, above knee: 46.5, 47 ASSESSMENT: Pt presents with signs and symptoms of stage 1 return of phlebolymphedema in B feet and ankles. Physical therapy consisting of CDT is indicated for this pt to regain reductions in circumferential volume as listed by the above impairments and return to prior level of function with ADL's. Short Term Goals In 2 weeks pt will reduce B LE 1st digit circumference to 9.6 or less with (-) Stemmer's sign for improved function with ADL's and decreased neural irritation. In 2 weeks pt will be compliant with HEP and compression garment use for maintenance of edema for functional independence with ADL's. Patient's Goals Decrease edema and neuropathy PLAN: Patient to be seen for Manual Therapy/STM/MET Strengthening/condition Range of Motion Stretching Neuromuscular Re-ed Closed Chain Program Posture/Body mechanics Home Exercise Program Therapeutic Activities 5x/Week for 2 Weeks If you have any questions, comments, or concerns about this report or plan, please contact me at . Thank you, Joleen Prater, PT, DPT, CLT MTDD
--- NOTE | 2018-05-08 15:20 | PT PLAN OF CARE ---
Physician: Maryanne Hall MD Patient is being seen: 5x/day Therapist: Joleen Prater, PT, DPT, CLT Medical Diagnosis: Localized Edema Treatment Diagnosis: Bilateral Lower Extremity Phlebolymphedema, Neuropathy Date of Onset: 04/22/18 Date of Initial Evaluation: 04/22/18 Date patient was last seen: 05/07/18 Number of treatments: 10 Number of cancellations/No shows: 0 INTERVENTIONS: Manual Therapy/STM/MET Strengthening/condition Range of Motion Stretching Neuromuscular Re-ed Closed Chain Program Posture/Body mechanics Home Exercise Program Therapeutic Activities GOALS: In 2 weeks pt will reduce B LE 1st digit circumference to 9.6 or less with (-) Stemmer's sign for improved function with ADL's and decreased neural irritation. MET In 2 weeks pt will be compliant with HEP and compression garment use for maintenance of edema for functional independence with ADL's. PATIENT'S GOAL: Decrease edema and neuropathy Status of Patient's Goals: 2/2 MET Patient Compliance: Good Prognosis: Good Reasons for discharge from therapy: Dima is to discharge from physical therapy at this time secondary to completion of 2/2 functional goals. At the time of discharge pt has full reductions of B LE with decreased neuropathy. Additionally pt has donning and doffing aids acquired allowing pt to maintain edema with 30-40mmHg compression garments independently. Pt showed increased knee pain with decreased edema stability in the joint. Pt denied wanting to perform PT exercises for knee stabilization and strengthening, but instead had decreased pain with taping for stabilization and ordered a knee brace. Upon discharge pt is to continue with neuropathy and edema HEP and use of independent compression garments. OBJECTIVE: Palpation: Stemmer's (-) throughout entire LE B Other Objective Findings: LE Circumferential Measures (R,L) in cm: Eval: 1st digit: 10.0, 10.1, 2nd: 6.8, 6.7, Dorsum: 27.6, 27.7, Arch: 28.6, 28.3, Heel: 37.3, 37.8, Figure 8: 63.5, 63.7, Above malleoli: 29.6, 30, Calf: 41.1, 42.8, Below Knee: 40, 40.9, above knee: 46.5, 47 LE Circumferential Measures (R,L) in cm: 05/08/18: 1st digit: 9.6, 9.6, 2nd: 6.8, 6.5, Dorsum: 26.6, 26.5, Arch: 27.6, 27.5, Heel: 37.0, 37.0, Figure 8: 61.9, 61, Above malleoli: 29.0, 29.5, Calf: 39.8, 39, Below Knee: 39, 40.4, above knee: 45.8, 46.5 If you have any questions, please feel free to contact me at [phone]. Thank you, Joleen Prater, PT, DPT, CLT MTDD
[2018-06-02] MEDS ORDERED: METO25TA23 PO (09:42)
[2018-06-02] MEDS ORDERED: FURO80TA70 PO (09:42)
[2018-06-02] MEDS ORDERED: FEBU40TA2 PO (09:42)
[2018-06-10] MEDS ORDERED: DUL20 PO (10:54)
== END 2018-05-08 18:00 | disposition home or self-care (01) ==
LOC: PT 09:00
PROVIDERS: ATTEND Family Medicine
DX: R60.0 Localized edema (principal); I89.0 Lymphedema, not elsewhere classified; G62.9 Polyneuropathy, unspecified
CPT/HCPCS: 97161

== ENCOUNTER → 2018-05-18 | Outpatient (CLI) | payer MEDICARE, BC ==
--- NOTE | 2018-05-18 10:40 | RADIOLOGY IMAGING REPORT ---
FACILITY: [facility] PATIENT NAME: Dima Dey : 1945 MR: [id number] V: [id number] EXAM DATE: ORDERING PHYSICIAN: SAMIRA HAYES TECHNOLOGIST: Location: [facility] - [place] Patient: Dima Dey : 1945 Visit/Account:[id number] Date of Sevice: 05/18/2018 KIDNEYS HISTORY: Chronic kidney disease stage III ADDITIONAL HISTORY: None. COMPARISON: None. FINDINGS: Kidneys: Right kidney- 9.8 cm, normal parenchymal thickness and echogenicity. Left kidney- 10.9 cm, normal parenchymal thickness and echogenicity. Uniform and symmetric blood flow in each kidney by Doppler ultrasound. Hydronephrosis: None. Bladder: Unremarkable. Bilateral ureteral jets: Documented Prevoid volume 418 mL and post void volume 353 mL. Large postvoid residual. Abdominal aorta and IVC: Patent by Doppler ultrasound. IMPRESSION: There is a large postvoid residual in the bladder. Exam otherwise unremarkable. No evidence of hydronephrosis or appreciable cortical atrophy. Report Dictated By: Dominic Padilla MD at 05/18/2018 10:31 AM Report E-Signed By: Dominic Padilla MD at 05/18/2018 10:36 AM WSN:[email or web address]
== END ==
LOC: US 07:35
PROVIDERS: ATTEND Internal Medicine Nephrology
DX: Z13.9 Encounter for screening, unspecified (principal); R33.9 Retention of urine, unspecified
CPT/HCPCS: 76705

== ENCOUNTER → 2018-06-10 | Outpatient (CLI) | payer MEDICARE, BC ==
[~2018-06-10] MED LIST changes: +DUL20 PO
[2018-06-10 11:23] LABS: PLATELET COUNT, AUTOMATED 435 K/uL (150-450)
== END ==
LOC: LAB 11:04
PROVIDERS: ATTEND Family Medicine
DX: N18.4 Chronic kidney disease, stage 4 (severe) (principal)
CPT/HCPCS: 36415; 82040; 82247; 82310; 82374; 82435; 82565; 82947; 84075; 84132; 84155; 84295; 84450; 84460; 84520; 85025

== ENCOUNTER → 2018-06-15 | Outpatient (CLI) | payer MEDICARE, BC | LOC: US 02:44 | PROVIDERS: ATTEND Family Medicine | DX: I48.91 Unspecified atrial fibrillation (principal) | CPT/HCPCS: 93306 ==

== ENCOUNTER → 2018-06-27 | Outpatient (CLI) | payer MEDICARE, BC ==
[~2018-06-27] MED LIST changes: +AMLO-101 PO; +ERGO500037 PO
== END ==
LOC: RESP 20:22
PROVIDERS: ATTEND Family Medicine
DX: G47.33 Obstructive sleep apnea (adult) (pediatric) (principal); G47.61 Periodic limb movement disorder; G47.36 Sleep related hypoventilation in conditions classified elsewhere

== ENCOUNTER 2018-07-03 13:00 | Outpatient (RCR) | payer MEDICARE, BC ==
--- NOTE | 2018-06-24 18:14 | PT INITIAL EVALUATION ---
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 Pt has a history of edema, which initially occurred 25 years ago which has been addressed with physical therapy previously with great outcomes. The most recent episode of phlebolymphedema started about a week and a half ago secondary to his diuretic medication being cut in half. Pt states that he has a history of A fib and is currently taking diuretics which are causing him to urinate frequently especially during the night. Pt also has a history of arthritis and neuropathy in B feet. Pt states that he does have occasional pain, spasms, in the legs at night. Pt is currently wearing 30-40 mmHg compression stockings on B LE. 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 Physical therapy is indicated to address the following impairments to improve patient's overall quality of life as well as improve function with ADL's. Short Term Goals In 2 weeks pt will decrease B ankle circumference, specifically above the malleoli to less than 29 cm and figure 8 of less than 62 cm to improve overall function with ADL's. In 2 weeks pt will have (-) Stemmer's sign on B 1st digits to improve overall function with ADL's. In 2 weeks pt will decrease Lymphedema Life Impact Scale (LLIS) to 38.2% impairment to improve overall function with ADL's. Patient's Goals: Improve swelling PLAN: Patient to be seen for Manual Therapy/STM/MET Strengthening/condition Ice/Heat Range of Motion Ultrasound Stretching Iontophoresis Neuromuscular Re-ed Closed Chain Program Electrical Stim Posture/Body mechanics Gait Trg/Balance Trg Biofeedback Home Exercise Program Mech./Manual Traction Therapeutic Activities 5x/Week for 2 Weeks If you have any questions, comments, or concerns about this report or plan, please contact me at . Thank you, Joleen Prater, PT, DPT, CLT Pilar Estrada, SPT This Physical Therapist was present for the entire physical therapy session directing the services, making the skilled judgement, and was not engaged in treating another patient or doing another task at the same time as the treatment session. ANA ROSA
--- NOTE | 2018-07-03 17:09 | PT PLAN OF CARE ---
Physician: Dr. Maryanne Hall Patient is being seen: 5x/wk Therapist: Joleen Prater, PT, DPT, CLT & Pilar Estrada, SPT Medical Diagnosis: Leg Edema Treatment Diagnosis: Lymphedema in B LE Date of Onset: 06/22/18 Date of Initial Evaluation: 06/24/18 Date patient was last seen: 07/03/18 Number of treatments: 7 Number of cancellations/No shows: 0 INTERVENTIONS: Manual Therapy/STM/MET Strengthening/condition Ice/Heat Range of Motion Ultrasound Stretching Iontophoresis Neuromuscular Re-ed Closed Chain Program Electrical Stim Posture/Body mechanics Gait Trg/Balance Trg Biofeedback Home Exercise Program Mech./Manual Traction Therapeutic Activities GOALS: In 2 weeks pt will decrease B ankle circumference, specifically above the malleoli to less than 29 cm and figure 8 of less than 62 to improve overall function with ADL's. MET In 2 weeks pt will have (-) Stemmer's sign on B 1st digits to improve overall function with ADL's. MET In 2 weeks pt will decrease Lymphedema Life Impact Scale (LLIS) to 38.2% impairment to improve overall function with ADL's. PATIENT'S GOAL: Improve swelling. Status of Patient's Goals: 2/3 MET Patient Compliance: Good Prognosis: Good Reasons for discharge from therapy: Dima is to discharge from physical therapy following the completion of 2/3 goals. Pt shows full reductions in B LE with decreased protein content in B feet. Pt is now able to don and doff footwear independently with ease. Upon discharge pt is to continue with independent compression garment use and HEP performance and pt is to seek further PT if swelling recurs. Palpation: Pitting edema: negative on B LE Special Tests: Stemmer sign: (-) B on the 1st digits, (-) B on the dorsum of the feet LE Lymphedema Circumferential Measurements in cm (R,L) EVAL: 1st digit: 9.7, 9.5, 2nd digit: 7.0, 7.0, Dorsum: 25.5, 26, Arch: 27, 27, Heel: 36, 36.5, Above Malleoli: 28.7, 30.3, Figure 8: 62, 63, Calf: 37.8, 38.9, Below Knee: 39.2, 39.4, Above Knee: 45.5, 45.5 LE Lymphedema Circumferential Measurements in cm (R,L) 07/03/18: 1st digit: 9.8, 9.2, 2nd digit: 6.5, 6.5, Dorsum: 25.5, 26.2, Arch: 26, 26.8, Heel: 36, 36.5, Above Malleoli: 28.2, 29, Figure 8: 61, 62, Calf: 37.7, 38.5, Below Knee: 39, 39.4, Above Knee: 43.5, 44.5 If you have any questions or concerns please feel free to contact me at [phone]. Thank you, Joleen Prater, PT, DPT, CLT Pilar Estrada, SPT LE Lymphedema Circumferential Measurements in cm (R,L): 1st digit: 9.7, 9.5, 2nd digit: 7.0, 7.0, Dorsum: 25.5, 26, Arch: 27, 27, Heel: 36, 36.5, Above Malleoli: 28.7, 30.3, Figure 8: 62, 63, Calf: 37.8, 38.9, Below Knee: 39.2, 39.4, Above Knee: 45.5, 45.5 MTDD
== END 2018-07-03 18:00 | disposition home or self-care (01) ==
LOC: PT 13:00
PROVIDERS: ATTEND Family Medicine
DX: R60.0 Localized edema (principal); I89.0 Lymphedema, not elsewhere classified
CPT/HCPCS: 97161

== ENCOUNTER → 2018-07-15 | Outpatient (CLI) | payer MEDICARE, BC | LOC: LAB 17:25 | PROVIDERS: ATTEND Urology | DX: Z12.0 Encounter for screening for malignant neoplasm of stomach (principal); N39.0 Urinary tract infection, site not specified; R35.0 Frequency of micturition; R33.8 Other retention of urine | CPT/HCPCS: 36415; 81001; 84153; 87088 ==

== ENCOUNTER → 2018-07-18 | Outpatient (CLI) | payer MEDICARE, BC ==
[~2018-07-18] MED LIST changes: +FINA5TAB64 PO; +OXYGENHOME INH; +TAMS0.4C25 PO
== END ==
LOC: RESP 19:28
PROVIDERS: ATTEND Family Medicine
DX: G47.33 Obstructive sleep apnea (adult) (pediatric) (principal); G47.36 Sleep related hypoventilation in conditions classified elsewhere; G47.61 Periodic limb movement disorder

== ENCOUNTER 2018-08-03 00:58 | Inpatient (IN) | payer MEDICARE, BC ==
--- NOTE | 2018-07-27 13:29 | NUR ---
EXPLAINED THAT PATIENT NEEDED A RIDE HOME FROM HOSPITAL AFTER HAVING ANESTHESIA AND IF HE RECEIVED ANY NARCOTICS MEDICATIONS. HE SEEMED VERY UPSET AND DID NOT WANT TO TALK ABOUT THIS AND STATED HE HAS HAD NUMEROUS SURGERIES AND HE KNOWS WHAT HE NEEDS TO DO. HE STATES 'HE WILL FIGURE A WAY OUT TO GET HIS ASS HOME'. PATIENT SEEMED VERY IRRITATED. TOLD PATIENT HE NEEDED TO COME TO PRE-THERAPY FOR BLOOD WORK ON 08/02 1499. HE STATED HE HAD ALREADY DONE ALL OF HIS BLOOD WORK AND STATED THIS WAS UNNECESSARY. EXPLAINED THAT SOME LABS HAD TO BE DONE WITHIN 24 HOURS OF PROCEDURE.
[~2018-08-03] VITALS: Ht 180.3 cm; Wt 120.4 kg
[2018-08-03] VITALS (22 sets, daily range): BP systolic 124–159; BP diastolic 59–100
[2018-08-03] MEDS ORDERED: ceFAZolin(*) 1 GM VIAL 3 GM in NS(*) 0.9% 100 ML BAG 100 ML IVPB ONE (06:00)
[2018-08-03] MEDS ORDERED: NORMOSOL R SOLN(*) 1000 ML BAG 1,000 ML IV PRN (06:00)
[2018-08-03] MEDS ORDERED: PREGABALIN 75 MG CAPSULE PO ONE (06:00)
[2018-08-03] MEDS ORDERED: ACETAMINOPHEN 500 MG TAB PO ONE (06:00)
[2018-08-03] MEDS ORDERED: MIDAZOLAM 2 MG/2 ML VIAL IVP PRN (06:00)
[2018-08-03] MEDS ORDERED: LIDOCAINE/SOD BICARB 8.4% SYR ID ONE (06:00)
[2018-08-03] MEDS ORDERED: fentaNYL CITR 250 MCG/5 ML AMP ONE ×2 (06:41→07:04)
[2018-08-03] MEDS ORDERED: LIDOCAINE 2% IV 100 MG/5ML SYR ONE (06:42)
[2018-08-03] MEDS ORDERED: PROPOFOL EMUL(*) 10MG/ML 20 ML 80 ML ONE (06:42)
[2018-08-03] MEDS ORDERED: KETAMINE HCL 200 MG/20 ML MDV ONE ×2 (07:02→08:06)
[2018-08-03] MEDS ORDERED: DEXAMETHASONE SOD PHOS 10MG/ML ONE (07:09)
[2018-08-03] MEDS ORDERED: ONDANSETRON 4 MG/2 ML VIAL ONE (07:10)
[2018-08-03] MEDS ORDERED: PROPOFOL EMUL(*) 10MG/ML 20 ML 60 ML ONE ×2 (07:10→07:36)
[2018-08-03] MEDS ORDERED: fentaNYL CITR 100 MCG/2 ML AMP ONE ×2 (07:40→09:12)
[2018-08-03] MEDS ORDERED: PROPOFOL EMUL(*) 10MG/ML 20 ML 40 ML ONE ×2 (08:14→08:34)
[2018-08-03] MEDS ORDERED: PROPOFOL EMUL(*) 10MG/ML 20 ML 20 ML ONE (08:56)
--- NOTE | 2018-08-03 09:36 | RADIOLOGY IMAGING REPORT ---
FACILITY: [facility] - [place] PATIENT NAME: Dima Dey : 1945 MR: [id number] V: [id number] EXAM DATE: ORDERING PHYSICIAN: FRANCISCA GREENWOOD TECHNOLOGIST: Location: [facility] Patient: Dima Dey : 1945 Visit/Account:[id number] Date of Sevice: 08/03/2018 Technique: CERVICAL SPINE 2 OR 3 VIEW HISTORY: C6-C7 disc fusion/herniation Comparison studies: MRI cervical spine February 03, 2018 FINDINGS: 4 lateral images were obtained of the cervical spine. Surgical instrumentation is seen ant erior to C6-C7 followed by placement of an intervertebral disc spacer. Advanced degenerative changes are again noted throughout the cervical spine including intervertebral disc space narrowing, sclerosi s and endplate osteophytosis. Vertebral body heights are maintained. There is gross anatomic alignm ent. IMPRESSION: 1. Status post C6-C7 intervertebral disc spacer without evidence of hardware complication. 2. Degenerative changes. Report Dictated By: Fredy Maldonado DO at 08/03/2018 9:29 AM Report E-Signed By: Fredy Maldonado DO at 08/03/2018 9:33 AM WSN:[email or web address]
[2018-08-03] MEDS ORDERED: APAP/HYDROCODONE 325/5 TAB PO PRN (10:10)
[2018-08-03] MEDS ORDERED: ACETAMINOPHEN(*)1000 MG/100 ML 100 ML IVPB PRN (10:10)
[2018-08-03] MEDS ORDERED: oxyCODONE HCL 5 MG CAP PO PRN (10:10)
[2018-08-03] MEDS ORDERED: MAGNESIUM HYDROXIDE* 30ML UDCP PO PRN (10:10)
[2018-08-03] MEDS ORDERED: diphenhydrAMINE 25 MG CAP PO PRN (10:10)
[2018-08-03] MEDS ORDERED: BISACODYL 10 MG SUPP PR PRN (10:10)
[2018-08-03] MEDS ORDERED: FLUSH 10 ML SYR IVP PRN (10:10)
[2018-08-03] MEDS ORDERED: DIAZEPAM 5 MG TAB PO PRN (10:10)
[2018-08-03] MEDS ORDERED: HYDROmorphone HCL 2 MG/ML SDV IVP PRN (10:10)
[2018-08-03] MEDS ORDERED: BENZOCAINE/MENTHOL 1 EACH LOZG PO PRN (10:10)
[2018-08-03] MEDS ORDERED: LR(*) 1000 ML BAG 1,000 ML IV PRN (10:10)
[2018-08-03] MEDS ORDERED: ONDANSETRON 4 MG/2 ML VIAL IVP PRN (10:10)
[2018-08-03] MEDS ORDERED: ACETAMINOPHEN 500 MG TAB PO PRN (10:10)
--- NOTE | 2018-08-03 10:50 | OPERATIVE REPORT 1 ---
EVENT DATE: August 03, 2018 SURGEON: Ariel Handley MD ANESTHESIOLOGIST: Bear Vogel M.D. ANESTHESIA: General. [employer]: Felipe Vidal PA-C PREOPERATIVE DIAGNOSIS C6-C7 degenerative disk disease with right greater than left C7 distribution radiculopathy. POSTOPERATIVE DIAGNOSIS C6-C7 degenerative disk disease with right greater than left C7 distribution radiculopathy. PROCEDURE PERFORMED C6-C7 anterior cervical diskectomy and fusion. IV FLUIDS 1800 cc's. ESTIMATED BLOOD LOSS 40 cc's. IMPLANTS 1. 7 mm lordotic size small titanium interbody device from [employer]. 2. 3.5 mm x 14 mm fixation screws from [employer]. 3. 1 cc of ViBone SPECIMENS None. DRAINS 10-Yoruba round Fabio-Peterson drain through the neck. COMPLICATIONS None. DISPOSITION Post-Anesthesia Care Unit. INDICATIONS FOR SURGERY Mr. Dey is a 73-year-old gentleman who presented with a complaint of right greater than left radicular symptoms radiating down to the periscapular region and then down the posterior triceps, dorsal forearm and into the middle and ring finger of his right greater than left hand. He has numbness and tingling as well as cramping in his hand. His physical examination was significant for normal gait, normal cervical range of motion and normal strength and sensation in his upper extremities. His imaging studies showed multi-level degenerative disk disease at C4-5, C5-6 and C6-7 but the area of greatest compression was on the right greater than the left at the C6-C7 level. Secondary to ongoing symptoms and failure of nonsurgical care, Mr. Dey was offered and elected to undergo C6-C7 anterior cervical diskectomy and fusion. Prior to surgery, we discussed that this electrodiagnostic studies suggested radiculopathy at C5 and C6 as well but given the absence of symptoms in those distributions we elected to perform surgery at one level only. Prior to surgery, I explained in detail to the patient the possible risks of surgery. These risks include bleeding, infection, swallowing difficulty, need for tube feeding, nerve root damage, spinal cord injury, spinal fluid leak, meningitis, , blindness, sexual dysfunction, autonomic nervous system dysfunction and other unforeseen medical and surgical complications. An understanding that in general spinal surgery is more predictive at improving extremity discomfort than axial spine pain was stressed. DESCRIPTION OF PROCEDURE On the day of surgery, the patient was met in the preoperative hold area and all questions were answered. The operative site was identified and marked by myself. The patient was brought in good condition to the operating room and after succumbing to anesthesia was positioned in the supine position on a standard OR bed. Neurophysiologic monitoring was performed throughout the entire procedure and there were no changes in monitoring during the course of the case. All bony protuberances and soft tissues were well padded in the standard fashion. Preoperative antibiotics were administered according to the appropriate timing schedule. Care was taken to maintain appropriate perfusion pressures during anesthesia. At the conclusion of the procedure, sponge and needle counts were correct x2. A final time-out was undertaken by members of the operating team to confirm correct patient, correct levels and correct surgery. The patient was then prepped and draped in the standard sterile orthopedic fashion and a transverse incision was made over the anterior neck at the intended surgical levels. Sharp dissection was carried out down to the platysma, which was divided. A finger was used to palpate the carotid pulse and finger dissection was carried out medial to the carotid sheath, coming down onto the anterior aspect of the cervical spine. Soft tissues including the longus colli muscles were elevated off the anterior cervical spine in a subperiosteal manner. The large left sided osteophyte seen on MRI was easily identified. A lateral radiograph was obtained to confirm correct spinal levels and then a self-retaining retractor was placed and distracted with weights hung on both sides. The microscope was brought into the field and using a combination of the high- speed bur and Kerrison rongeurs we were able to take down the anterior osteophyte overlying the disk space. We then used a series of progressively smaller curettes to dissect down through the disk space and to the posterior longitudinal ligament. As we were doing this, we noted that the disk space itself was very much nonmobile secondary to the osteophyte that we identified on the left. We were unable to provide much distraction across that level so we had to carefully continue to dissect posteriorly with a combination of the bur, the curettes and the Kerrison rongeurs until we were sure that we were looking at the posterior longitudinal ligament. At this point, a very small forward- angled curette was used to dissect through the fibers of the PLL and a nerve hook was then placed behind the PLL and swept 360 degrees to confirm that we were actually in the spinal canal. No significant cord compression was found. #1 and #2 Kerrison's were used to take down the posterior longitudinal ligament out to the width of the uncovertebral joints bilaterally. The #2 Kerrison was then used to widen out the foramina bilaterally, ensuring that the nerve hook could be passed out the foramina over the top of the pedicle below with no difficulties. At this point, we irrigated the wound with copious sterile saline solution and then chose a 7 mm lordotic size small rasp to trial for the implant. This fit nicely and had an excellent press fit. We, therefore, selected that size small 7 mm lordotic device and after packing it with ViBone it was placed into the interbody space under direct visualization. Once it was countersunk about 0.5 mm, we took the extension out of the head of the table to further compress across that level. The awl was then used to puncture the endplates through the integrated holes in the device and then we placed 3.5 mm x 14 mm fixation screws, one into the V6 vertebral body and one into the C7. A final set of x- rays was obtained to confirm appropriate placement of the hardware and those looked good. The wound was then irrigated with sterile saline and meticulous hemostasis was obtained. The wound was closed in layers using interrupted sutures for the platysma, inverted interrupted sutures for the subcutaneous tissue and then a running subcuticular skin stitch. Sponge and needle counts were correct x2. A drain was left deep to the platysma. POSTOPERATIVE CARE PLAN Mr. Dey will remain in the hospital overnight. He will have his drain pulled in the morning and as long as he is doing well he will be discharged home with instructions to follow up in two weeks for wound check and examination. ANA ROSA
--- NOTE | 2018-08-03 13:31 | Hospitalist Consultation ---
History of Present Illness Requesting Physician Dr. Handley Reason for Consult Medical Management Chief Complaint s/p cervical fusion History of Present Illness He was admitted s/p cervical fusion. It is reported the surgery went well and without complication. History Problems: (1) Afib Status: Chronic (2) GERD (gastroesophageal reflux disease) Status: Chronic (3) CKD (chronic kidney disease), stage IV Status: Chronic (4) DVT (deep venous thrombosis) Status: Resolved (5) Anemia in chronic kidney disease (CKD) Status: Chronic (6) Gout Status: Chronic (7) HTN (hypertension) Status: Chronic Home Meds Active Scripts Furosemide (FUROSEMIDE) 80 Mg Tablet, 1 TAB PO DAILY, #90 TAB 4 Refills Prov:NALLELY PENA MD 06/02/18 Febuxostat (ULORIC) 40 Mg Tablet, 1 TAB PO DAILY, #90 TAB 4 Refills Prov:NALLELY PENA MD 06/02/18 Reported Medications Oxygen (OXYGEN) Inha, 2 L INH HS, L 2L @ HS with Bipap 07/30/18 Finasteride (PROSCAR) 5 Mg Tablet, 1 TAB PO QDAY 07/22/18 Potassium Chloride (KLOR-CON 10) 10 Meq Tablet.er, 1 TAB PO BID 07/22/18 Ergocalciferol (Vitamin D2) (VITAMIN D2) 50,000 Unit Capsule, 1 CAP PO Q30D, CAPSULE 07/02/18 Amlodipine Besylate (NORVASC) 5 Mg Tablet, 2 TAB PO QDAY, TAB 07/02/18 Apixaban (ELIQUIS) 5 Mg Tablet, 1 TAB PO BID 02/11/18 Esomeprazole Magnesium (Esomeprazole Magnesium) 40 Mg Capsule.dr, 1 CAP PO BID 12/29/17 Allergies: Coded Allergies: strawberry (Verified Allergy, Mild, THROAT SWELLING , 07/27/18) Patient History: FH: CAD (coronary artery disease) MOTHER Hx Smoking: Yes (2 PPDX15 YEARS) Smoking Status: Former Smoker, Heavy Tobacco Smoker Exposure to Second Hand Smoke?: Yes When Quit Tobacco?: AGE 33 Caffeine Intake: Soda Caffeine/Cups Per Day: 2 LITERS/DAY Hx Alcohol Use: Yes Hx Substance Use Disorder: No Social Drug Use: Former Social Drugs: Marijuana Review of Systems All Systems Reviewed/Normal: Yes, Except as Noted ENT: Sore Throat Exam Vital Signs Vital Signs Date Time Temp Pulse Resp B/P (MAP) Pulse Ox O2 Delivery O2 Flow Rate FiO2 08/03/18 13:00 79 136/76 (96) 92 Nasal Cannula 3.0 08/03/18 12:00 18 08/03/18 11:28 98.2 08/03/18 10:29 35.0 General Appearance: Alert, Awake, No Acute Distress, Afebrile Neuro: No Gross deficits Cardiovascular: Regular Rate and Rhythm Respiratory: No Respiratory Distress, Clear to Auscultation GI: Abd Soft and Non-Tender Psych: Alert & Oriented X3, Appropriate Mood & Affect Assessment and Plan Problems: (1) S/P cervical spinal fusion Status: Acute Assessment & Plan: Followed by Dr. Handley. (2) HTN (hypertension) Status: Chronic Assessment & Plan: He is on chronic treatment with Amlodipine and Furosemide. The amlodipine has been restarted with hold parameters. (3) GERD (gastroesophageal reflux disease) Status: Chronic Assessment & Plan: He is on chronic treatment with Nexium. He will be switched to Protonix during admission. (4) Gout Status: Chronic Assessment & Plan: He is on chronic treatment with Uloric. Continue. (5) Afib Status: Chronic Assessment & Plan: He is on chronic treatment with Eliquis. He did stop this two days prior to surgery, he should resume two days after surgery. (6) Anemia in chronic kidney disease (CKD) Status: Chronic Assessment & Plan: He does have chronic microcytic anemia. Monitor. (7) CKD (chronic kidney disease), stage IV Status: Chronic Assessment & Plan: His creatinine was 1.9 prior to surgery. Will recheck a BMP tomorrow. (8) DVT (deep venous thrombosis) Status: Resolved Assessment & Plan: History of DVT while on Xarelto. Now on Eliquis. Venous Thromboembolism Antithrombotics Is Pt On Any Antithrombotics?: No Prophylaxis Tx Contraindicated Pharmacological Contraindicati: Surgical Contraindication Problem Qualifiers (1) HTN (hypertension): Hypertension type: essential hypertension Qualified Codes: I10 - Essential (primary) hypertension PERCY RAY DRY DIP WORKER Aug 03, 2018 13:31
[2018-08-03] MEDS: ceFAZolin 3 GM in NS 0.9% 100 ML BAG IVPB SCH ×2 (13:55→21:46)
--- NOTE | 2018-08-03 17:15 | NUR ---
Physical Therapy Impression PT eval completed. Pt demos modified indep with all bed mobility, with head of bed at >45 degrees, as well as indep with transfers and ambulation x 150' without assistive device. Pt tolerated up/down step x 3 reps and indicated no concerns with this skill. Pt on room air throughout treatment session and able to maintain sats above 88% with deep breathing. Physical Therapy Goals 1. Pt to ambulate 200' without assistive device indep and safely 2. Pt to complete up/down step x 3 reps indep 3. Pt to be modified indep with bed mobility 4. Pt to be modified indep with sit to/from stand Patient's Goals
[2018-08-03] MEDS: PANTOPRAZOLE SOD 40 MG TABEC PO SCH (20:53)
[2018-08-03] MEDS: DOCUSATE SODIUM 100 MG CAP PO SCH ×3 (20:53→20:57)
[2018-08-03] MEDS ORDERED: FINASTERIDE 5 MG TAB PO SCH (21:00)
[2018-08-04 03:33] VITALS: BP 146/83
[2018-08-04] MEDS: ceFAZolin 3 GM in NS 0.9% 100 ML BAG IVPB SCH (05:23)
[2018-08-04 06:54] VITALS: BP 124/69
[2018-08-04] MEDS ORDERED: DOCU240C84 PO (08:18)
[2018-08-04] MEDS ORDERED: LOR5/325 PO (08:20)
--- NOTE | 2018-08-04 08:53 | Hospitalist Progress Note ---
Subjective Progress Notes Subjective He has no complaints this morning. He would like to go home today. Patient Complains of: Cardiovascular: No: Chest Pain Respiratory: No: Shortness of Breath Physical Exam Vital Signs Date Time Temp Pulse Resp B/P (MAP) Pulse Ox O2 Delivery O2 Flow Rate FiO2 08/04/18 06:54 97.5 66 12 124/69 (87) 93 Nasal Cannula 1.5 08/03/18 23:32 35.0 Intake and Output 08/04/18 06:59 Intake Total 3380 ml Output Total 96 ml Balance 3284 ml Intake Oral 1372 ml IV Total 2008 ml Output Drainage Total 36 ml Estimated Blood Loss 50 ml Other 10 ml # Voids 4 General Appearance: Alert, Awake, No Acute Distress, Afebrile Neuro: No Gross deficits Cardiovascular: Regular Rate and Rhythm Respiratory: No Respiratory Distress, Clear to Auscultation GI: Soft and Non-Tender Psych: Alert & Oriented X3, Appropriate Mood & Affect Result Diagram: 08/04/18 0822 Assessment and Plan Problems: (1) S/P cervical spinal fusion Status: Acute Assessment & Plan: Followed by Dr. Handley. (2) HTN (hypertension) Status: Chronic Assessment & Plan: He is on chronic treatment with Amlodipine and Furosemide. The amlodipine has been restarted with hold parameters. He will resume Furose mide tomorrow. (3) GERD (gastroesophageal reflux disease) Status: Chronic Assessment & Plan: He is on chronic treatment with Nexium. He will be switched to Protonix during admission. (4) Gout Status: Chronic Assessment & Plan: He is on chronic treatment with Uloric. Continue. (5) Afib Status: Chronic Assessment & Plan: He is on chronic treatment with Eliquis. He did stop this two days prior to surgery, he should resume two days after surgery. (6) Anemia in chronic kidney disease (CKD) Status: Chronic Assessment & Plan: He does have chronic microcytic anemia. (7) CKD (chronic kidney disease), stage IV Status: Chronic Assessment & Plan: His creatinine was 1.9 prior to surgery. Creatinine 1.8 this morning. (8) DVT (deep venous thrombosis) Status: Resolved Assessment & Plan: History of DVT while on Xarelto. Now on Eliquis. Exam Sepsis Risk: No Definite Risk Problem Qualifiers (1) HTN (hypertension): Hypertension type: essential hypertension Qualified Codes: I10 - Essential (primary) hypertension PERCY RAY SPECIALTY TRIMMER Aug 04, 2018 08:52
[2018-08-04] MEDS ORDERED: amLODIPine BESYL(*) 5 MG TAB PO SCH (09:00)
[2018-08-04] MEDS ORDERED: FEBUXOSTAT 40 MG TABLET PO SCH (09:00)
--- NOTE | 2018-08-04 09:10 | NUR ---
Physical Therapy Impression PT goals met and is ready for d/c from a mobility stand point. Pt maintained 88% or better on room air throughout treatment session. Physical Therapy Goals 1. Pt to ambulate 200' without assistive device indep and safely 2. Pt to complete up/down step x 3 reps indep 3. Pt to be modified indep with bed mobility 4. Pt to be modified indep with sit to/from stand Patient's Goals
[2018-08-04] MEDS: DOCUSATE SODIUM 100 MG CAP PO SCH (09:13)
[2018-08-04] MEDS: PANTOPRAZOLE SOD 40 MG TABEC PO SCH (09:13)
--- NOTE | 2018-08-04 09:24 | RADIOLOGY IMAGING REPORT ---
FACILITY: [facility] PATIENT NAME: Dima Dey : 1945 MR: [id number] V: [id number] EXAM DATE: ORDERING PHYSICIAN: FRANCISCA GREENWOOD TECHNOLOGIST: Location: [facility] [place] Patient: Dima Dey : 1945 Visit/Account:[id number] Date of Sevice: 08/04/2018 CERVICAL SPINE 2 OR 3 VIEW HISTORY: post op AP lateral and swimmer's view of the cervical spine. FINDINGS: Status post anterior fusion at the C6-7 level with a well-positioned and maintained disc spacer. Pro minent anterior ossification of the anterior longitudinal ligament from the C3-4 through the C7 level . Disc space narrowing changes of a moderate degree at the C4-5 and 56 level. There are advanced fa cet arthropathy changes seen throughout the cervical spine most notably on the right at the C3-4 and C4-5 levels. Prevertebral soft tissues are unremarkable. IMPRESSION: 1. Postoperative changes in the cervical spine with disc degenerative changes as described. Report Dictated By: Richar Blanchard MD at 08/04/2018 9:16 AM Report E-Signed By: Richar Blanchard MD at 08/04/2018 9:19 AM WSN:[id number]
== END 2018-08-04 11:25 | disposition home or self-care (01) | DRG 472 ==
LOC: OR 00:58 → MED 11:30
PROVIDERS: ADMIT Orthopaedic Surgery; ATTEND Orthopaedic Surgery
PROC: 0RT30ZZ Resection of Cervical Vertebral Disc, Open Approach (ICD-10-PCS; 2018-08-03)
PROC: 0RG10A0 Fusion of Cervical Vertebral Joint with Interbody Fusion Device, Anterior Approach, Anterior Column, Open Approach (ICD-10-PCS; principal; 2018-08-03 06:58)
DX: M50.123 Cervical disc disorder at C6-C7 level with radiculopathy (principal); N18.4 Chronic kidney disease, stage 4 (severe); M25.78 Osteophyte, vertebrae; I48.2 Chronic atrial fibrillation; I12.9 Hypertensive chronic kidney disease with stage 1 through stage 4 chronic kidney disease, or unspecified chronic kidney disease; N40.0 Benign prostatic hyperplasia without lower urinary tract symptoms; G47.33 Obstructive sleep apnea (adult) (pediatric); E66.9 Obesity, unspecified; G62.9 Polyneuropathy, unspecified; M1A.9XX0 Chronic gout, unspecified, without tophus (tophi); D63.1 Anemia in chronic kidney disease; Z87.891 Personal history of nicotine dependence; Z68.37 Body mass index [BMI] 37.0-37.9, adult; Z86.718 Personal history of other venous thrombosis and embolism
CPT/HCPCS: 36415; 72020; 72040; 82310; 82374; 82435; 82565; 82947; 84132; 84295; 84520; 86850; 86900; 86901; 94660; 97161; C1713; J0690; J1100; J2001; J2405; J2704; J3010; J3490; J7050

== ENCOUNTER 2018-08-14 10:30 | Outpatient (RCR) | payer MEDICARE, BC ==
--- NOTE | 2018-08-05 17:45 | PT INITIAL EVALUATION ---
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 Pt has a history of edema, which initially occurred 25 years ago which has been addressed with physical therapy previously with great outcomes. The most recent episode of phlebolymphedema started less than one week prior coming on only in a couple days. Pt reports that after some adjustments to his current medications including diuretics and blood thinners the swelling quickly returned. Pt is currently wearing 30-40 mmHg compression stockings on B LE. 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 Special Tests: Stemmer's sign: (+) B on the 1st digits, (+) B on the dorsum of the feet Other Objective Findings: LE Lymphedema Circumferential Measurements in cm (R,L) (at Previous Discharge in June 2018): 1st digit: 9.7, 9.5, 2nd digit: 7.0, 7.0, Dorsum: 25.5, 26, Arch: 27, 27, Heel: 36, 36.5, Above Malleoli: 28.7, 30.3, Figure 8: 62, 63, Calf: 37.8, 38.9, Below Knee: 39.2, 39.4, Above Knee: 45.5, 45.5 LE Lymphedema Circumferential Measurements in cm (R,L) (EVAL): 1st digit: 10.1, 9.6, 2nd digit: 7.4, 7.4, Dorsum: 27, 26.9, Arch: 28.1, 29.6, Heel: 38.3, 38.5, Above Malleoli: 31.5, 32.3, Figure 8: 66.1, 65, Calf: 41.5, 44, Below Knee: 39, 40.4, Above Knee: 47.1, 46.7 ASSESSMENT: Dima presents to physical therapy with 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 Physical therapy is indicated to address the following impairments to improve patient's overall quality of life as well as improve function with ADL's. Short Term Goals In 2 weeks pt will decrease B ankle circumference, specifically above the malleoli to less than 29 cm and figure 8 of less than 62 cm to improve overall function with ADL's. In 2 weeks pt will have (-) Stemmer's sign on B 1st digits to improve overall function with ADL's. Patient's Goals: Improve swelling PLAN: Patient to be seen for Manual Therapy/STM/MET Strengthening/condition Ice/Heat Range of Motion Ultrasound Stretching Iontophoresis Neuromuscular Re-ed Closed Chain Program Electrical Stim Posture/Body mechanics Gait Trg/Balance Trg Biofeedback Home Exercise Program Mech./Manual Traction Therapeutic Activities 5x/Week for 2 Weeks If you have any questions, comments, or concerns about this report or plan, please contact me at . Thank you, Joleen Prater, PT, DPT, CLT MTDD
[~2018-08-14 10:30] MED LIST changes: +DOCU240C84 PO; +LOR5/325 PO
== END 2018-08-14 18:00 | disposition home or self-care (01) ==
LOC: PT 10:30
PROVIDERS: ATTEND Family Medicine
DX: R60.0 Localized edema (principal)
CPT/HCPCS: 97161

== ENCOUNTER 2018-09-06 11:50 | Emergency (ER) | payer MEDICARE, BC ==
--- NOTE | 2018-09-06 11:52 | ER Report ---
History and Physical Time Seen By MD: 11:52 HPI/ROS CHIEF COMPLAINT: Patient is a 73-year-old male here status post fall down concrete steps. HISTORY OF PRESENT ILLNESS: Patient is a 73-year-old male here status post fall down concrete steps. Patient complains of mid thoracic and lumbar back pain post fall however denies new neurological deficits, motor weakness. Denies bowel or bladder incontinence, saddle anesthesia. Patient is alert and oriented. REVIEW OF SYSTEMS: Constitutional: No fever, no chills. Eyes: No discharge. ENT: No sore throat. Cardiovascular: No chest pain, no palpitations. Respiratory: No cough, no shortness of breath. Gastrointestinal: No abdominal pain, no vomiting. Genitourinary: No hematuria. Musculoskeletal: Significant diffuse back pain. Skin: No rashes. Neurological: Neurovascular exam intact denies headache or neck pain Allergies: Coded Allergies: strawberry (Verified Allergy, Mild, THROAT SWELLING , 07/27/18) Home Meds Active Scripts Tramadol Hcl (TRAMADOL HCL) 50 Mg Tablet, 50 MG PO Q6H PRN for PAIN, #12 TAB 0 Refills Prov:JULIO CESAR SONG DO 09/06/18 Cyclobenzaprine Hcl (CYCLOBENZAPRINE HCL) 10 Mg Tablet, 10 MG PO Q8H PRN for MUSCLE SPASMS, #20 TAB 0 Refills Prov:JULIO CESAR SONG DO 09/06/18 Furosemide (FUROSEMIDE) 80 Mg Tablet, 1 TAB PO DAILY, #90 TAB 4 Refills Prov:NALLELY PENA MD 06/02/18 Febuxostat (ULORIC) 40 Mg Tablet, 1 TAB PO DAILY, #90 TAB 4 Refills Prov:NALLELY PENA MD 06/02/18 Reported Medications Hydrocodone Bit/Acetaminophen (HYDROCODON-ACETAMINOPHEN 5-325) 1 Each Tablet, 1- 2 EACH PO Q6H PRN for PAIN, TAB 08/04/18 Docusate Calcium (SURFAK) 240 Mg Capsule, 240 MG PO QDAY, CAPSULE 08/04/18 Oxygen (OXYGEN) Inha, 2 L INH HS, L 2L @ HS with Bipap 07/30/18 Finasteride (PROSCAR) 5 Mg Tablet, 1 TAB PO QDAY 07/22/18 Potassium Chloride (KLOR-CON 10) 10 Meq Tablet.er, 1 TAB PO BID 07/22/18 Ergocalciferol (Vitamin D2) (VITAMIN D2) 50,000 Unit Capsule, 1 CAP PO Q30D, CAPSULE 07/02/18 Amlodipine Besylate (NORVASC) 5 Mg Tablet, 2 TAB PO QDAY, TAB 07/02/18 Apixaban (ELIQUIS) 5 Mg Tablet, 1 TAB PO BID Resume 08/05/18. 02/11/18 Esomeprazole Magnesium (Esomeprazole Magnesium) 40 Mg Capsule.dr, 1 CAP PO BID 12/29/17 Hx Smoking: Yes (2 PPDX15 YEARS) Smoking Status: Former Smoker, Heavy Tobacco Smoker Exposure to Second Hand Smoke?: Yes Hx Substance Use Disorder: No Hx Alcohol Use: Yes Constitutional Vital Sign - Last 24 Hours 09/06/18 09/06/18 09/06/18 09/06/18 11:55 11:56 12:10 12:38 Temp 98.5 Pulse 79 79 Resp 16 B/P (MAP) 156/91 (112) 156/91 Pulse Ox 93 97 O2 Delivery Room Air O2 Flow Rate 2.0 09/06/18 13:53 Pulse 54 Resp 14 B/P (MAP) 134/76 (95) Pulse Ox 97 O2 Delivery Room Air Physical Exam General Appearance: The patient is alert, has no immediate need for airway protection and no signs of toxicity. No acute distress Eyes: Pupils equal and round no pallor or injection. ENT, Mouth: Mucous membranes are moist. Respiratory: There are no retractions, lungs are clear to auscultation. Cardiovascular: Regular rate and rhythm. [ ] Gastrointestinal: Abdomen is soft and non tender, no masses, bowel sounds normal. Neurological: No focal neurological findings Skin: Warm and dry, no rashes. Musculoskeletal: Neck is supple non tender. Significant diffuse mid thoracic and lumbar Extremities are nontender, nonswollen and have full range of motion. [ ] DIFFERENTIAL DIAGNOSIS: After history and physical exam differential diagnosis was considered for back pain including but not limited to muscular pain, herniated disc, spine fracture, intra-abdominal causes and urinary tract infection. Medical Decision Making EKG/Imaging Imaging Location: [facility] Patient: Dima Dey : 1945 Visit/Account:[id number] Date of Sevice: 09/06/2018 CT CHEST ABDOMEN PELVIS W/O CON HISTORY: Fall. Severe back pain. TECHNIQUE: CT imaging was obtained through the chest, abdomen and pelvis without intravenous contrast. One of the following dose optimization techniques was utilized in the performance of this exam: automated exposure control; adjustment of the mA and/or kv according to patient size; or use of iterative reconstruction technique. Specific details can be referenced in the facility's radiology CT exam operational policy. CONTRAST: None COMPARISON: None. FINDINGS: CHEST: Lower neck: Negative. Vessels: Moderate calcification of the coronary arteries. Heart and pericardium: Negative Mediastinum/hilum/lymph nodes: Negative. Lungs/pleura: Probable background of centrilobular emphysema. Subtle bilateral reticular opacities with upper lobe predominance without consolidation. No pneumothorax or pleural effusion. Bones/soft tissues: Negative. Other findings: None significant ABDOMEN/PELVIS: Hepatobiliary: Cholecystectomy. Spleen: Negative. Adrenals: Negative. Pancreas: Negative. Kidneys/ureters/bladder: Negative. Bowel/peritoneum/mesentery: Normal appendix. No free air or ascites. Mild distal colonic diverticulosis. Vessels: Negative. Lymph nodes: Negative. Pelvic genitourinary: Negative. Bones/soft tissues: Partial fusion of the bilateral SI joints. Small sclerotic lesion within the right iliac bone with nonaggressive features. L2-L3 posterior pedicle screws with L4-L5 laminectomies. Other findings: None significant IMPRESSION: 1. No evidence of traumatic injury to the chest, abdomen or pelvis. 2. Postoperative changes from L2-L5 3. Probable background of emphysema with mild bilateral reticular opacities with upper lobe predominance which are nonspecific. No consolidation. ED Course/Re-evaluation ED Course Patient is a 73-year-old male here status post fall down steps complaining of thoracic and lumbar back pain. Patient has no neurological deficits, motor weakness. CT imaging of the chest abdomen pelvis was completed and showed no acute fractures. Patient was sent home with scripts for anti-spasmodics, analgesics. Return precautions provided. Close PCP follow-up recommended. Patient was stable at time of discharge. Decision to Disposition Date: Sep 06, 2018 Decision to Disposition Time: 13:27 Depart Departure Latest Vital Signs Vital Signs Date Time Temp Pulse Resp B/P (MAP) Pulse Ox O2 Delivery O2 Flow Rate FiO2 09/06/18 13:53 54 14 134/76 (95) 97 Room Air 09/06/18 12:38 2.0 09/06/18 11:56 98.5 Impression: Primary Impression: Back pain Condition: Improved Disposition: HOME OR SELF-CARE Referrals: NALLELY PENA MD (PCP) New Scripts Tramadol Hcl (TRAMADOL HCL) 50 Mg Tablet 50 MG PO Q6H PRN for PAIN, #12 TAB 0 Refills Prov: JULIO CESAR SONG DO 09/06/18 Cyclobenzaprine Hcl (CYCLOBENZAPRINE HCL) 10 Mg Tablet 10 MG PO Q8H PRN for MUSCLE SPASMS, #20 TAB 0 Refills Prov: JULIO CESAR SONG DO 09/06/18 Patient Instructions: Back Pain (GEN) Additional Instructions: You may take 1 tramadol every 6-8 hours as needed for breakthrough back pain. You may take 1 Flexeril every 6-8 hours as needed for muscle spasm. Please follow-up with her family doctor in the next week. Please return immediately with worsening pain, weakness, numbness. JULIO CESAR SONG DO Sep 06, 2018 11:52
[2018-09-06] MEDS ORDERED: KETOROLAC 60 MG/2 ML VIAL IM ONE (12:10)
[2018-09-06] MEDS ORDERED: ORPHENADRINE 60MG/2ML INJ IM ONE (12:10)
--- NOTE | 2018-09-06 13:16 | RADIOLOGY IMAGING REPORT ---
FACILITY: [facility] [place] PATIENT NAME: Dima Dey : 1945 MR: [id number] V: [id number] EXAM DATE: ORDERING PHYSICIAN: JULIO CESAR SONG TECHNOLOGIST: Location: [facility] Patient: Dima Dey : 1945 Visit/Account:[id number] Date of Sevice: 09/06/2018 CT CHEST ABDOMEN PELVIS W/O CON HISTORY: Fall. Severe back pain. TECHNIQUE: CT imaging was obtained through the chest, abdomen and pelvis without intravenous contras t. One of the following dose optimization techniques was utilized in the performance of this exam: au tomated exposure control; adjustment of the mA and/or kv according to patient size; or use of iterati ve reconstruction technique. Specific details can be referenced in the facility's radiology CT exam o perational policy. CONTRAST: None COMPARISON: None. FINDINGS: CHEST: Lower neck: Negative. Vessels: Moderate calcification of the coronary arteries. Heart and pericardium: Negative Mediastinum/hilum/lymph nodes: Negative. Lungs/pleura: Probable background of centrilobular emphysema. Subtle bilateral reticular opacities w ith upper lobe predominance without consolidation. No pneumothorax or pleural effusion. Bones/soft tissues: Negative. Other findings: None significant ABDOMEN/PELVIS: Hepatobiliary: Cholecystectomy. Spleen: Negative. Adrenals: Negative. Pancreas: Negative. Kidneys/ureters/bladder: Negative. Bowel/peritoneum/mesentery: Normal appendix. No free air or ascites. Mild distal colonic diverticulo sis. Vessels: Negative. Lymph nodes: Negative. Pelvic genitourinary: Negative. Bones/soft tissues: Partial fusion of the bilateral SI joints. Small sclerotic lesion within the rig ht iliac bone with nonaggressive features. L2-L3 posterior pedicle screws with L4-L5 laminectomies. Other findings: None significant IMPRESSION: 1. No evidence of traumatic injury to the chest, abdomen or pelvis. 2. Postoperative changes from L2-L5 3. Probable background of emphysema with mild bilateral reticular opacities with upper lobe predomina nce which are nonspecific. No consolidation. Report Dictated By: Bora Pinzon MD at 09/06/2018 12:56 PM Report E-Signed By: Bora Pinzon MD at 09/06/2018 1:12 PM WSN:[id number]
[2018-09-06] MEDS ORDERED: TRAM-420 PO (13:30)
[2018-09-06] MEDS ORDERED: CYCL10TA29 PO (13:30)
[2018-09-06 13:53] VITALS: BP 134/76
== END 2018-09-06 14:41 | disposition home or self-care (01) ==
LOC: ER 12:02
DX: M54.5 Low back pain (principal); M54.6 Pain in thoracic spine
CPT/HCPCS: 71250; 74176; 96372; 99284; J1885; J2360

== ENCOUNTER 2018-09-15 08:48 | Emergency (ER) | payer MEDICARE, BC ==
[~2018-09-15 08:48] MED LIST changes: +CYCL10TA29 PO; +TRAM-420 PO
[2018-09-15] MEDS ORDERED: DIAZEPAM 5 MG TAB PO ONE (09:35)
[2018-09-15] MEDS ORDERED: ACETAMINOPHEN 325 MG TAB PO ONE (09:35)
--- NOTE | 2018-09-15 09:45 | ER Report ---
History and Physical Time Seen By MD: 09:20 Hx. of Stated Complaint: pt fell down stairs last week, was seen in er and sent home with meds, continues to have pain now radiating into r low back and groin HPI/ROS CHIEF COMPLAINT: Back pain HISTORY OF PRESENT ILLNESS: 73-year-old male is 9 days status post fall down stairs. He reports that he presented and had imaging done which was unremarkable for fracture. He was given tramadol and Flexeril and discharged. He states that he has had gradually increasing pain, to the point that he was unable to get out of bed except to go to the bathroom yesterday. He states that pain now radiates to the right groin. He denies incontinence, new weakness or numbness, fevers or chills, difficulty breathing. He has remote history of lumbar surgery. He states pain is worse than when he initially went into surgery. He also notes some abdominal pain on the right side. He has had no numbness around the groin. He has not attempted stretches, he has not followed up with his primary doctor, and he states that medications on which he was discharged have not worked at all. REVIEW OF SYSTEMS: Constitutional: No fever, no chills. Eyes: no blurred vision ENT: No sore throat. Cardiovascular: No chest pain, no palpitations. Respiratory: No cough, no shortness of breath. Gastrointestinal: abdominal pain Genitourinary: no dysuria no incontinence Musculoskeletal: above Skin: No rashes. Neurological: No headache. Remainder of the 14 system rev: Yes Allergies: Coded Allergies: strawberry (Verified Allergy, Mild, THROAT SWELLING , 07/27/18) Home Meds Active Scripts Tramadol Hcl (TRAMADOL HCL) 50 Mg Tablet, 50 MG PO Q6H PRN for PAIN, #12 TAB 0 Refills Prov:SONGJULIO CESAR QUIROZ S DO 09/06/18 Cyclobenzaprine Hcl (CYCLOBENZAPRINE HCL) 10 Mg Tablet, 10 MG PO Q8H PRN for MUSCLE SPASMS, #20 TAB 0 Refills Prov:SONGJULIO CESAR S DO 09/06/18 Febuxostat (ULORIC) 40 Mg Tablet, 1 TAB PO DAILY, #90 TAB 4 Refills Prov:NALLELY PENA MD 06/02/18 Reported Medications Hydrocodone Bit/Acetaminophen (HYDROCODON-ACETAMINOPHEN 5-325) 1 Each Tablet, 1- 2 EACH PO Q6H PRN for PAIN, TAB 08/04/18 Docusate Calcium (SURFAK) 240 Mg Capsule, 240 MG PO QDAY, CAPSULE 08/04/18 Oxygen (OXYGEN) Inha, 2 L INH HS, L 2L @ HS with Bipap 07/30/18 Finasteride (PROSCAR) 5 Mg Tablet, 1 TAB PO QDAY 07/22/18 Potassium Chloride (KLOR-CON 10) 10 Meq Tablet.er, 1 TAB PO BID 07/22/18 Ergocalciferol (Vitamin D2) (VITAMIN D2) 50,000 Unit Capsule, 1 CAP PO Q30D, CAPSULE 07/02/18 Amlodipine Besylate (NORVASC) 5 Mg Tablet, 2 TAB PO QDAY, TAB 07/02/18 Apixaban (ELIQUIS) 5 Mg Tablet, 1 TAB PO BID Resume 08/05/18. 02/11/18 Esomeprazole Magnesium (Esomeprazole Magnesium) 40 Mg Capsule.dr, 1 CAP PO BID 12/29/17 Discontinued Scripts Furosemide (FUROSEMIDE) 80 Mg Tablet, 1 TAB PO DAILY, #90 TAB 4 Refills Prov:NALLELY PENA MD 06/02/18 Reviewed Nurses Notes: Yes Old Medical Records Reviewed: Yes Hx Smoking: Yes (2 PPDX15 YEARS) Smoking Status: Former Smoker, Heavy Tobacco Smoker Exposure to Second Hand Smoke?: Yes Hx Substance Use Disorder: No Hx Alcohol Use: Yes Constitutional Vital Sign - Last 24 Hours 09/15/18 09/15/18 09/15/18 09/15/18 08:48 08:55 08:56 09:00 Temp 98.3 Pulse ??? 84 Resp 18 B/P (MAP) 148/99 (115) 148/99 147/87 (107) Pulse Ox 93 O2 Delivery Room Air 09/15/18 09/15/18 09/15/18 09/15/18 09:03 09:18 09:30 09:33 Pulse 75 71 68 B/P (MAP) 135/77 (96) Pulse Ox 91 90 89 09/15/18 09/15/18 09/15/18 09/15/18 09:48 10:00 10:03 10:18 Pulse 75 68 62 B/P (MAP) 150/86 (107) Pulse Ox 95 91 87 09/15/18 09/15/18 10:30 10:33 Pulse 87 B/P (MAP) 135/79 (97) Pulse Ox 83 Physical Exam General Appearance: The patient is alert, has no immediate need for airway protection and no signs of toxicity. Eyes: Pupils equal and round no pallor or injection. ENT, Mouth: Mucous membranes are moist. Respiratory: There are no retractions, lungs are clear to auscultation. Cardiovascular: Regular rate and rhythm. Gastrointestinal: right middle abd ttp, with mild guarding, no ecchymosis. R inguinal ttp without ecchymosis. Neurological: normal sensation throughout, 1+ bilateral LE reflexes Skin: Warm and dry, no rashes. Musculoskeletal: TTP R paraspinal throughout thoracic and lumbar. Left L5 and gluteal ttp. No significant midline ttp Extremities are nontender; pt has stockings on due to chronic swelling; states no new swelling. 5/5 MS throughout, full range of motion, nl sensation. DIFFERENTIAL DIAGNOSIS: After history and physical exam differential diagnosis was considered for back pain including but not limited to cauda equina, muscular pain, herniated disc, spine fracture, intra-abdominal causes and urinary tract infection, and abdominal hemorrhage or retroperitoneal hemorrhage as a result of fall and being on Elequis. Medical Decision Making ED Course/Re-evaluation ED Course 73-year-old male presents 9 days after a fall with mechanical low back pain. He does not have signs of cauda equina on history or physical. Given that he is on Elequis and has no abdominal tenderness, we'll repeat CT, however cannot use contrast due to renal function. Ultimately, I discussed with patient that he must optimize home methods of pain management including stretches, follow-up with primary doctor for physical therapy, consideration of massage or other modalities, none of which he has attempted. CT without e/o significant findings. Pt slightly improved on reassessmnet. Able to urinate without difficulty; of note does have post void residual but he feels this is normal for him given his prostate hypertrophy. Recommend f/u wtih pcm and further evaluation; other than PVR, which is explained by prostate hypertrophy, there is no e/o cauda equina and pt ambulates without diffiuclty on d/c. Decision to Disposition Date: Sep 15, 2018 Decision to Disposition Time: 11:51 Depart Departure Latest Vital Signs Vital Signs Date Time Temp Pulse Resp B/P (MAP) Pulse Ox O2 Delivery O2 Flow Rate FiO2 09/15/18 10:33 87 83 09/15/18 10:30 135/79 (97) 09/15/18 08:56 98.3 18 Room Air Impression: Primary Impression: Back pain Condition: Improved Disposition: HOME OR SELF-CARE Referrals: NALLELY PENA MD (PCP) 5 Days New Scripts Diazepam (DIAZEPAM) 5 Mg Tablet 5 MG PO 2-3XD for Muscle Relaxant, #10 TAB Prov: DIONE MAKI MD 09/15/18 Patient Instructions: Acute Low Back Pain (ED) Additional Instructions: As we discussed, return for new weakness, numbness, or any concerns. Please follow up with your primary doctor for further evaluation, referral to physical therapy or other modalities. Problem Qualifiers Primary Impression: Back pain Back pain location: low back pain Chronicity: unspecified Back pain late rality: right Sciatica presence: without sciatica Qualified Codes: M54.5 - Low back pain DIONE MAKI MD Sep 15, 2018 09:45
--- NOTE | 2018-09-15 10:26 | RADIOLOGY IMAGING REPORT ---
FACILITY: [facility] [place] PATIENT NAME: Dima Dey : 1945 MR: [id number] V: [id number] EXAM DATE: ORDERING PHYSICIAN: DIONE MAKI TECHNOLOGIST: Location: [facility] [place] Patient: Dima Dey : 1945 Visit/Account:[id number] Date of Sevice: 09/15/2018 CT ABDOMEN PELVIS W/O CON HISTORY: The following week ago. Increasing abdominal pain. Anticoagulated. TECHNIQUE: Axial images were obtained through the abdomen and pelvis without intravenous contrast . One of the following dose optimization techniques was utilized in the performance of this exam: autom ated exposure control; adjustment of the mA and/or kv according to patient size; or use of iterative reconstruction technique. Specific details can be referenced in the facility's radiology CT exam oper ational policy. CONTRAST: None COMPARISON: CT chest, abdomen and pelvis 09/06/2018 FINDINGS: Visualized lung bases: Negative. Hepatobiliary: Cholecystectomy. Spleen: Negative. Adrenals: Negative. Pancreas: Negative. Kidneys/ureters/bladder: Marked distention the urinary bladder. No hydronephrosis.. Bowel/peritoneum/mesentery: Mild colonic diverticulosis. Vessels: Mild arterial calcifications. Lymph nodes: Negative. Pelvic genitourinary: Negative. Bones/body wall: L2-L3 posterior fusion. Partial fusion of the bilateral SI joints. Other findings: None significant IMPRESSION: 1. No free fluid or evidence of hematoma. No acute inflammatory process identified. 2. Marked distention the urinary bladder of uncertain significance. Report Dictated By: Bora Pinzon MD at 09/15/2018 10:16 AM Report E-Signed By: Bora Pinzon MD at 09/15/2018 10:21 AM WSN:[id number]
[2018-09-15] MEDS ORDERED: DIAZ-308 PO (11:56)
[2018-09-15 12:00] VITALS: BP 143/88
== END 2018-09-15 12:04 | disposition home or self-care (01) ==
LOC: ER 08:48
DX: M54.5 Low back pain (principal); R10.31 Right lower quadrant pain
CPT/HCPCS: 74176; 99284; A9270

== ENCOUNTER → 2018-10-21 | Outpatient (CLI) | payer MEDICARE, BC ==
[~2018-10-21] MED LIST changes: +DIAZ-308 PO; +DICL100G39 TOP
[2018-10-21 10:12] LABS: PLATELET COUNT, AUTOMATED 395 K/uL (150-450)
== END ==
LOC: LAB 09:46
DX: I12.9 Hypertensive chronic kidney disease with stage 1 through stage 4 chronic kidney disease, or unspecified chronic kidney disease (principal); N18.3 Chronic kidney disease, stage 3 (moderate); D63.1 Anemia in chronic kidney disease; N25.81 Secondary hyperparathyroidism of renal origin
CPT/HCPCS: 36415; 82040; 82310; 82374; 82435; 82565; 82570; 82947; 83970; 84100; 84132; 84156; 84295; 84520; 84550; 85025

== ENCOUNTER 2018-10-30 15:43 | Outpatient (RCR) | payer MEDICARE, BC ==
--- NOTE | 2018-10-07 10:08 | PT INITIAL EVALUATION ---
MEDICAL DIAGNOSIS: Leg Edema TREATMENT DIAGNOSIS: Phlebolymphedema DATE OF ONSET: 09/28/18 SUBJECTIVE: Dima is a 73 year old male presenting to physical therapy following recurrence of onset of B LE edema. 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 Pt reports that recently about a week prior his legs started swelling without any known cause. Pt reports that he fell down some stairs a couple days prior but recalls no injury to the LE. Additionally pt reports that he recently had a change in his bladder medication, but no change to his diuretics. Pt reports that after the swelling started he could no longer don his compression stockings and then the swelling really got worse. Pt reports that he can no longer wear normal shoes because his feet have got so large. Pt reports tightness and neuropathy, but no pain. REHAB PROBLEM LIST: Increased Pain Decreased Function Decreased ADL's Decreased Mobility PREVIOUS MEDICAL HISTORY: See EMR OCCUPATION: OBJECTIVE: Pt has bilateral symmetrical swelling from above knee to foot with buffalo hump present on dorsum and skin changes present around toes. Lopez is tight and shiny. Palpation: Pitting present 2+ on R dorsum, 3+ on L dorsum and shins. Stemmer's sign (+) on dorsum and digits B. Special Tests: Lymphedema Life Impact Scale (LLIS): 53/72 Other Objective Findings: Circumferential Measures in cm (R,L): 1st digit: 10.9, 10.2, 2nd: 7.9, 7.2, Dorsum: 29.5, 29.6, Arch: 30.3, 30.4, Heel: 39.2, 39.4, Abv mal: 34, 35.2, figure-8: 67.5, 67.9, calf: 47, 47.6, below knee: 42.5, 43.6, abv knee: 47.5, 49.4 ASSESSMENT: Dima presents with signs and symptoms of phlebolymphedema with stage 2 lymphatic skin changes. Physical therapy is indicated to improve the above listed deficits to improve pt function with ADL's. Short Term Goals In 4 weeks pt will decrease B ankle circumference, specifically above the malleoli to less than 29 cm and figure 8 of less than 62 cm to improve overall function with ADL's. In 4 weeks pt will have (-) Stemmer's sign on B 1st digits to improve overall function with ADL's. In 4 weeks pt will decrease LLIS score to 28 or less for improved function with ADL's. Patient's Goals Decrease edema to wear normal footwear and boots PLAN: Patient to be seen for Manual Therapy/STM/MET Range of Motion Stretching Closed Chain Program Home Exercise Program [facility]./Manual Traction Therapeutic Activities 5x/Week for 4 Weeks If you have any questions, comments, or concerns about this report or plan, please contact me at . Thank you, Joleen Prater, PT, DPT, CLT MTDD
--- NOTE | 2018-10-21 11:47 | PT PLAN OF CARE ---
Physician: Maryanne Hall MD Patient is being seen: 5x/Week Therapist: Joleen Prater, PT, DPT, CLT Medical Diagnosis: Leg Edema Treatment Diagnosis: Phlebolymphedema Date of Onset: 09/28/18 Date of Initial Evaluation: 10/05/18 Date patient was last seen: 10/21/18 Number of treatments: 10 Number of cancellations/No shows: 0 INTERVENTIONS: Manual Therapy/STM/MET Range of Motion Stretching Closed Chain Program Home Exercise Program Mech./Manual Traction Therapeutic Activities GOALS: In 4 weeks pt will decrease B ankle circumference, specifically above the malleoli to less than 29 cm and figure 8 of less than 62 cm to improve overall function with ADL's. In 4 weeks pt will have (-) Stemmer's sign on B 1st digits to improve overall function with ADL's. In 4 weeks pt will decrease LLIS score to 28 or less for improved function with ADL's. PATIENT'S GOAL: Decrease edema to wear normal footwear and boots Status of Patient's Goals: 3/3 In Progress Patient Compliance: Fair Prognosis: Good Reasons for continuing therapy: Pt shows gradual reduction in lymphedema with initially quick reductions with wrapping and since gradual reductions with compression stocking use instead. Lingering edema is present in ankles, dorsum and toes with (+) Stemmer's sign remaining. However pitting is no longer present throughout the LE. Further PT to continue with progression with possible partial wrapping per pt tolerance. PCP contacted for possible referral to vascular MD for assessment on if correction can be made for venous insufficiency. Additionally order was requested from PCP for flat knit compression stocking garments at 30-40 mmHg for pt to have night time support. OBJECTIVE: Pt has bilateral symmetrical swelling from below knee to toes with increased edema around ankle and on foot. Toes are square with slight rounding and tight on R>L Palpation: Stemmer's sign (+) on dorsum and digits B. Special Tests: Lymphedema Life Impact Scale (LLIS): 53/72 Other Objective Findings: Circumferential Measures in cm EVAL (R,L): 1st digit: 10.9, 10.2, 2nd: 7.9, 7.2, Dorsum: 29.5, 29.6, Arch: 30.3, 30.4, Heel: 39.2, 39.4, Abv mal: 34, 35.2, figure-8: 67.5, 67.9, calf: 47, 47.6, below knee: 42.5, 43.6, abv knee: 47.5, 49.4 10/21/18 (R,L): 1st digit: 10.1, 10, 2nd: 7.8, 7.9, Dorsum: 29.7, 27.3, Arch: 328.5, 28.8, Heel: 38.2, 39.9, Abv mal: 33.6, 31.4, figure-8: 66.9, 65.5, calf: 42.7, 43.5, below knee: 40.5, 41.1, abv knee: 45.2, 45.4 If you have any questions, comments, or concerns about this report or plan, please contact me at . Thank you, Joleen Prater, PT, DPT, CLT MTDD
[~2018-10-30 15:43] MED LIST changes: +CAL25 PO
--- NOTE | 2018-10-30 18:13 | PT PLAN OF CARE ---
Physician: Maryanne Hall MD Patient is being seen: 5x/Week Therapist: Joleen Prater, PT, DPT, CLT Medical Diagnosis: Leg Edema Treatment Diagnosis: Phlebolymphedema Date of Onset: 09/28/18 Date of Initial Evaluation: 10/05/18 Date patient was last seen: 10/30/18 Number of treatments: 16 Number of cancellations/No shows: 1 INTERVENTIONS: Manual Therapy/STM/MET Range of Motion Stretching Closed Chain Program Home Exercise Program Mech./Manual Traction Therapeutic Activities GOALS: In 4 weeks pt will decrease B ankle circumference, specifically above the malleoli to less than 29 cm and figure 8 of less than 62 cm to improve overall function with ADL's. Not MET In 4 weeks pt will have (-) Stemmer's sign on B 1st digits to improve overall function with ADL's. Not MET In 4 weeks pt will decrease LLIS score to 28 or less for improved function with ADL's. MET PATIENT'S GOAL: Decrease edema to wear normal footwear and boots Status of Patient's Goals: 1/3 MET, 2/3 Not MET Patient Compliance: Fair Prognosis: Good Reasons for discharge from therapy: Dima is to discharge from physical therapy at this time secondary to pt preference. At the time of discharge pt showed good reductions but was not yet fully reduced to prior levels of discharge from PT. Toes remained firm and squared, with minimal swelling above the ankle remaining. No pitting is present throughout the LE. Throughout treatment pt showed progressive reductions in edema with improved function and decreased skin tightness. Upon discharge pt is to continue with compression stockings during the day and was recommended compression garment during the night to maintain reductions between treatments. OBJECTIVE: Pt has bilateral symmetrical swelling from below knee to toes with increased edema around ankle and on foot. Toes are square with slight rounding and tight on R>L Palpation: Stemmer's sign (+) on dorsum and digits B. Special Tests: Lymphedema Life Impact Scale (LLIS): 16.5/72 Other Objective Findings: Circumferential Measures in cm EVAL (R,L): 1st digit: 10.9, 10.2, 2nd: 7.9, 7.2, Dorsum: 29.5, 29.6, Arch: 30.3, 30.4, Heel: 39.2, 39.4, Abv mal: 34, 35.2, figure-8: 67.5, 67.9, calf: 47, 47.6, below knee: 42.5, 43.6, abv knee: 47.5, 49.4 10/21/18 (R,L): 1st digit: 10.1, 10, 2nd: 7.8, 7.9, Dorsum: 29.7, 27.3, Arch: 328.5, 28.8, Heel: 38.2, 39.9, Abv mal: 33.6, 31.4, figure-8: 66.9, 65.5, calf: 42.7, 43.5, below knee: 40.5, 41.1, abv knee: 45.2, 45.4 10/30/18 (R,L): 1st digit: 9.8, 9.5, 2nd: 6.8, 6.9, Dorsum: 27, 26.9, Arch: 26.8, 27.4, Heel: 37, 37.7, Abv mal: 30, 29.9, figure-8: 62.5, 63.3, calf: 40.8, 41.6, below knee: 40.8, 40.6, abv knee: 45.7, 44.3 If you have any questions, comments, or concerns about this report or plan, please contact me at . Thank you, Joleen Prater, PT, DPT, CLT MTDD
== END 2018-10-30 18:00 | disposition home or self-care (01) ==
LOC: PT 15:43
PROVIDERS: ATTEND Family Medicine
DX: R60.0 Localized edema (principal); I89.0 Lymphedema, not elsewhere classified
CPT/HCPCS: 97161

== ENCOUNTER → 2019-01-29 | Outpatient (CLI) | payer OTHER, MEDICARE, BC ==
[~2019-01-29] MED LIST changes: +DOXY-179 PO; +ESOM40CA42 PO; +PRED20TA6 PO
--- NOTE | 2019-01-29 16:09 | RADIOLOGY IMAGING REPORT ---
FACILITY: [facility] - [place] PATIENT NAME: Dima Dey : 1945 MR: [id number] V: [id number] EXAM DATE: ORDERING PHYSICIAN: JAZ BATRES TECHNOLOGIST: Location: [facility] - [place], [place] Patient: Dima Dey : 1945 Visit/Account:[id number] Date of Sevice: 01/29/2019 MRI left shoulder Indication: Pain. Comparison: None available. Technique: Multiplanar multisequence MR images were obtained through the left shoulder. Findings: Rotator cuff: Minimal undersurface fraying distal supraspinatus fibers with no full-thickness tear. Infraspinatus i s intact as well as the teres minor. There is mild tendinopathy superior fibers of the subscapularis. Biceps tendon: There is a markedly attenuated appearance of the intra-articular portion biceps tendon fibers possibl y related to sequela of prior longitudinal split tearing. Extra-articular portion of the long head of biceps tendon appears unremarkable within the bicipital g roove. AC joint and acromion: Widening of the chromic clavicular interval noted which may relate to sequela of prior grade 1 AC sep aration. There are foci susceptive artifact in the anterolateral soft tissues adjacent to the left gl enohumeral joint within the region of the deltoid musculature. Correlate with clinical and surgical h istory. Labrum and capsular ligaments: Markedly irregular abnormal increased signal superior labrum suggest nondisplaced degenerative tearin g tearing as well as nondisplaced tearing of the mid posterior and posterior inferior labrum there is no labral detachment or para labral cyst formation.. There is also nondisplaced irregular degenerati ve tearing the anterior inferior labrum. Capsular ligaments are intact with no evidence of focal abnormality. Bones and cartilage: No acute or aggressive osseous abnormality. Chondral thinning throughout the glenohumeral joint cartilage. Effusion, bursitis: There is a small moderate-sized likely reactive effusion of the glenohumeral joint. No significant fluid seen within the subacromial/subdeltoid bursa. IMPRESSION: 1. Near circumferential irregular degenerative tearing labrum. 2. Markedly attenuated appearance of the biceps tendon may relate to sequela of chronic longitudinal split tearing. 3. Mild undersurface fraying distal anterior supraspinatus. 4. [id number] size likely reactive effusion glenohumeral joint Report Dictated By: William Carbone MD at 01/29/2019 3:57 PM Report E-Signed By: William Carbone MD at 01/29/2019 4:02 PM WSN:[id number]
== END ==
LOC: MRI 14:33
PROVIDERS: ATTEND Orthopaedic Surgery
DX: M75.102 Unspecified rotator cuff tear or rupture of left shoulder, not specified as traumatic (principal)

== ENCOUNTER 2019-02-01 13:45 | Outpatient (RCR) | payer OTHER, MEDICARE, BC ==
--- NOTE | 2019-01-20 18:11 | PT INITIAL EVALUATION ---
MEDICAL DIAGNOSIS: Bilateral LE Lymphedema TREATMENT DIAGNOSIS: Bilateral LE Phlebolymphedema DATE OF ONSET: 01/14/19 SUBJECTIVE: Dima is a 73 year old male presenting to physical therapy following recent week long onset of B LE swelling. Pt has previously been treated for secondary lymphedema and self manages edema with compression stockings at home. Pt reports that he cannot recall what might have caused this most recent swelling, but that in about 2 days he couldn't get his stockings on. Additionally, following the swelling onset, he dislocated his L 5th toe while trying to put his stockings on which then caused more swelling as well as a painful 5th toe. Pt reports that until recently his edema has been well controlled with compression. Pt reports he doesn't wear any compression at night secondary to overheating, but otherwise has been in good compliance. REHAB PROBLEM LIST: Increased Pain Decreased Function Decreased ADL's Decreased Mobility PREVIOUS MEDICAL HISTORY: See EMR OCCUPATION: Retired OBJECTIVE: Pt has bilateral symmetrical swelling from above knee to foot with buffalo hump present on dorsum and hyperkeratosis skin changes present around toes. Lopez is tight and shiny L>R. Palpation: Pitting present 3+ on B dorsum and shins. Stemmer's sign (+) on dorsum and digits B. Other Objective Findings: Circumferential Measures in cm (R,L): 1st digit: 11.2, 11.3, 2nd: 8.3, 7.9, Dorsum: 30.4, 31, Arch: 30, 31.6, Heel: 40.3, 41.2, Abv mal: 33.5, 34.3, figure-8: 68, 70.4, calf: 44, 46.4, below knee: 40.9, 42.1, abv knee: 47, 47.8 ASSESSMENT: Dima presents with signs and symptoms of phlebolymphedema with stage 2 lymphatic skin changes. Physical therapy is indicated to improve the above listed deficits to improve pt function with ADL's. Short Term Goals In 4 weeks pt will decrease B ankle circumference, specifically above the malleoli to less than 29 cm and figure 8 of less than 62 cm to improve overall function with ADL's. In 4 weeks pt will have (-) Stemmer's sign on B 1st digits to improve overall function with ADL's. In 4 weeks pt will decrease LLIS score to 28 or less for improved function with ADL's. Patient's Goals Decrease LE swelling in B extremity to be able to wear compression stockings PLAN: Patient to be seen for Manual Therapy/STM/MET Range of Motion Stretching Closed Chain Program Home Exercise Program [facility]./Manual Traction Therapeutic Activities 5x/Week for 4 Weeks If you have any questions, comments, or concerns about this report or plan, please contact me at . Thank you, Joleen Prater, PT, DPT, CLT MTDD
[~2019-02-01 13:45] MED LIST changes: -DOXY-179 PO; -ESOM40CA42 PO; -PRED20TA6 PO
[2019-02-02] MEDS ORDERED: TAMS0.4C25 PO (11:10)
[2019-02-02] MEDS ORDERED: ESOM40CA42 PO (11:10)
--- NOTE | 2019-02-03 07:28 | PT PLAN OF CARE ---
Physician: Maryanne Hall MD Patient is being seen: 5x/Week Therapist: Joleen Prater, PT, DPT, CLT Medical Diagnosis: Bilateral LE Lymphedema Treatment Diagnosis: Bilateral LE Phlebolymphedema Date of Onset: 01/14/19 Date of Initial Evaluation: 01/20/19 Date patient was last seen: 02/02/19 Number of treatments: 6 Number of cancellations/No shows: 0 INTERVENTIONS: GOALS: In 4 weeks pt will decrease B ankle circumference, specifically above the malleoli to less than 29 cm and figure 8 of less than 62 cm to improve overall function with ADL's. In 4 weeks pt will have (-) Stemmer's sign on B 1st digits to improve overall function with ADL's. In 4 weeks pt will decrease LLIS score to 28 or less for improved function with ADL's. PATIENT'S GOAL: Decrease LE swelling in B extremity to be able to wear compression stockings Status of Patient's Goals: Discontinued Patient Compliance: Good Prognosis: Reasons for discharge from therapy: Dima is to discharge from physical therapy at this time secondary to recent hospitalization for Hypoxia. At last PT session, this PT noted that pt had bluish tinge to lips and following checking O2 saturation had values 87-93%, following deep breathing saturation levels were raised to 96%. PT noted to pt to monitor levels and seek further treatment if low sat levels continued. Regarding edema, at the time of discharge pt showed good progress with no longer any evidence of pitting. Skin was mobile throughout extremity with lingering hyperkeratosis around toes with (+) Stemmer's sign on digits only. Pt was able to progress towards compression sock use rather than CDT wrapping and was near discharge. No final circumferential measures were made prior to hospitalization. OBJECTIVE: Palpation: Pitting no longer present throughout. Stemmer's sign (+) on digits only B. Other Objective Findings: Circumferential Measures in cm (R,L): Eval: 1st digit: 11.2, 11.3, 2nd: 8.3, 7.9, Dorsum: 30.4, 31, Arch: 30, 31.6, Heel: 40.3, 41.2, Abv mal: 33.5, 34.3, figure-8: 68, 70.4, calf: 44, 46.4, below knee: 40.9, 42.1, abv knee: 47, 47.8 If you have any questions, comments, or concerns about this report or plan, please contact me at . Thank you, Joleen Prater, PT, DPT, CLT MTDD
== END 2019-02-01 18:00 | disposition home or self-care (01) ==
LOC: PT 13:45
PROVIDERS: ATTEND Family Medicine
DX: I89.0 Lymphedema, not elsewhere classified (principal)
CPT/HCPCS: 97161

== ENCOUNTER 2019-02-02 10:56 | Inpatient (IN) | payer MEDICARE, BC ==
[~2019-02-02] VITALS: Ht 185.4 cm; Wt 117.9 kg
[2019-02-02] MEDS ORDERED: TAMS0.4C25 PO (11:10)
[2019-02-02] MEDS ORDERED: ESOM40CA42 PO (11:10)
[2019-02-02 11:25] LABS: PLATELET COUNT, AUTOMATED 407 K/uL (150-450)
--- NOTE | 2019-02-02 11:54 | RADIOLOGY IMAGING REPORT ---
FACILITY: [facility] PATIENT NAME: Dima Dey : 1945 MR: [id number] V: [id number] EXAM DATE: ORDERING PHYSICIAN: DAISHA MAKI TECHNOLOGIST: Location: [facility] [place] Patient: Dima Dey : 1945 Visit/Account:[id number] Date of Sevice: 02/02/2019 Exam type: CHEST PA LAT History: Chest pain, blue lips, shortness of breath Comparison: January 09, 2018. Findings: There is mild peribronchial thickening bilaterally. No evidence of lobar infiltrates, pleural effusi ons or overt pulmonary edema.. A radiopaque metallic density projects over the midline of the lower neck. This may be external to the patient although clinical correlation needed. The cardiac silhoue tte is mildly enlarged but unchanged IMPRESSION: 1. Mild peribronchial thickening which may be related to an acute peribronchial inflammatory process Radiopaque density projects over the midline of the lower neck which may be external to the patient a [facility] clinical correlation needed Report Dictated By: Jihan Harp MD at 02/02/2019 11:45 AM Report E-Signed By: Jihan Harp MD at 02/02/2019 11:47 AM JACKYN:[email or web address]
--- NOTE | 2019-02-02 12:09 | ER Report ---
History and Physical Time Seen By MD: 11:00 Hx. of Stated Complaint: STATES HX OF A FIB. CHEST PAIN ON AND OFF WITH SHORTNESS OF BREATH FOR A FEW DAYS AND OCCASIONAL DIZZINESS. CYANOSIS TO LIPS HPI/ROS Intermittent chest pain, mild SOB with exertion, and blue lips for 2-3 days. No nausea/vomiting. No trauma. Has had previous DVT. Takes Eliquis for afib, and states he is complaint. 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 Wears CPAP at night. No oxygen during the day. No recent echo or stress test. No previous PFTs. Says oxygen sats in low 80s yesterday when he went to PT. Remainder of the 14 system rev: Yes Allergies: Coded Allergies: strawberry (Verified Allergy, Mild, THROAT SWELLING , 07/27/18) Home Meds Active Scripts Febuxostat (ULORIC) 40 Mg Tablet, 1 TAB PO DAILY, #90 TAB 4 Refills Prov:NALLELY PENA MD 06/02/18 Reported Medications Tamsulosin Hcl (FLOMAX) 0.4 Mg Cap.er.24h, 0.4 MG PO, CAP 02/02/19 Esomeprazole Magnesium (NEXIUM) 40 Mg Capsule.dr, 1 CAP PO QDAY, CAP 02/02/19 Calcitriol (CALCITRIOL) 0.25 Mcg Cap, 1 CAP PO 3XW, CAP 10/28/18 Finasteride (PROSCAR) 5 Mg Tablet, 1 TAB PO QDAY 07/22/18 Potassium Chloride (KLOR-CON 10) 10 Meq Tablet.er, 1 TAB PO BID 07/22/18 Amlodipine Besylate (NORVASC) 5 Mg Tablet, 2 TAB PO QDAY, TAB 07/02/18 Apixaban (ELIQUIS) 5 Mg Tablet, 1 TAB PO BID Resume 08/05/18. 02/11/18 Discontinued Reported Medications Docusate Calcium (SURFAK) 240 Mg Capsule, 240 MG PO QDAY, CAPSULE 08/04/18 Oxygen (OXYGEN) Inha, 2 L INH HS, L 2L @ HS with Bipap 07/30/18 Esomeprazole Magnesium (Esomeprazole Magnesium) 40 Mg Capsule.dr, 1 CAP PO BID 12/29/17 Discontinued Scripts Cyclobenzaprine Hcl (CYCLOBENZAPRINE HCL) 10 Mg Tablet, 10 MG PO Q8H PRN for MUSCLE SPASMS, #20 TAB 0 Refills Prov:NALLELY PENA MD 10/22/18 Diclofenac Sodium 1% Gel (VOLTAREN 1% GEL) 100 Gm Gel..gram., 2 GM TOP BID, #1 TUBE Prov:NALLELY PENA MD 09/22/18 Reviewed Nurses Notes: Yes Old Medical Records Reviewed: Yes Hx Smoking: Yes (2 PPDX15 YEARS) Smoking Status: Former Smoker, Heavy Tobacco Smoker Exposure to Second Hand Smoke?: Yes Hx Substance Use Disorder: No Hx Alcohol Use: Yes Constitutional Vital Sign - Last 24 Hours 02/02/19 02/02/19 11:01 11:04 Temp 98.3 Pulse 86 Resp 20 B/P (MAP) 166/89 Pulse Ox 90 O2 Delivery Room Air O2 Flow Rate 2.0 Physical Exam General Appearance: The patient is alert, has no immediate need for airway protection and no current signs of toxicity. Mouth: Central cyanosis noted Eyes: Pupils equal and round no injection. Respiratory: Chest is non tender, lungs are clear to auscultation. Cardiac: regular rate and rhythm Gastrointestinal: Abdomen is soft and non tender, no masses, bowel sounds normal. Extremities have full range of motion and are non tender. B/L LE edema. Skin: No rashes or lesions. DIFFERENTIAL DIAGNOSIS: After history and physical exam differential diagnosis w as considered for chest pain including but not limited to myocardial ischemia, pericarditis pulmonary embolus, chest wall pain, pleural inflammation and pulmonary infectious causes. Medical Decision Making Data Points Result Diagram: 02/02/19 1102 02/02/19 1102 Laboratory Hematology Test 02/02/19 00:00 02/02/19 11:02 Blood Gas Puncture Site Right radial Blood Gas Patient Temperature 98.3 DEGREES Arterial Blood pH 7.41 (7.35-7.45) Arterial Blood Partial Pressure CO2 36 mmHg (32-37) Arterial Blood Partial Pressure O2 69 mmHg (60-80) Arterial Blood HCO3 23 mmol/L (20-26) Arterial Blood Oxygen Saturation 94 % (92-100) Arterial Blood Base Excess -2.0 mmol/L Tin Test Acceptable Oxygen Liters/Minute 29 Red Blood Count 5.15 M/uL (4.00-5.60) Mean Corpuscular Volume 73.1 fL (80.0-96.0) Mean Corpuscular Hemoglobin 23.2 pg (26.0-33.0) Mean Corpuscular Hemoglobin Concent 31.7 g/dL (32.0-36.0) Red Cell Distribution Width 19.0 % (11.5-14.5) Mean Platelet Volume 6.9 fL (7.2-11.1) Neutrophils (%) (Auto) 86.0 % (39.4-72.5) Lymphocytes (%) (Auto) 7.4 % (17.6-49.6) Monocytes (%) (Auto) 6.5 % (4.1-12.4) Eosinophils (%) (Auto) 0.0 % (0.4-6.7) Basophils (%) (Auto) 0.1 % (0.3-1.4) Nucleated RBC Relative Count (auto) 0.0 /100WBC Neutrophils # (Auto) 13.6 K/uL (2.0-7.4) Lymphocytes # (Auto) 1.2 K/uL (1.3-3.6) Monocytes # (Auto) 1.0 K/uL (0.3-1.0) Eosinophils # (Auto) 0.0 K/uL (0.0-0.5) Basophils # (Auto) 0.0 K/uL (0.0-0.1) Nucleated RBC Absolute Count (auto) 0.01 K/uL D-Dimer Quantitative (PE/DVT) 0.47 ug/ml (0-0.50) Sodium Level 144 mmol/L (137-145) Potassium Level 4.6 mmol/L (3.5-5.0) Chloride Level 106 mmol/L (98-107) Carbon Dioxide Level 22 mmol/L (22-30) Blood Urea Nitrogen 34 mg/dl (9-21) Creatinine 2.30 mg/dl (0.66-1.25) Glomerular Filtration Rate Calc 28.0 Random Glucose 197 mg/dl (75-110) Calcium Level 9.7 mg/dl (8.4-10.2) Total Bilirubin 0.4 mg/dl (0.2-1.3) Aspartate Amino Transf (AST/SGOT) 28 U/L (0-35) Alanine Aminotransferase (ALT/SGPT) 39 U/L (0-56) Alkaline Phosphatase 103 U/L (0-126) Troponin I < 0.012 ng/ml Total Protein 7.7 g/dl (6.3-8.2) Albumin 4.6 g/dl (3.5-5.0) Chemistry Test 02/02/19 00:00 02/02/19 11:02 Blood Gas Puncture Site Right radial Blood Gas Patient Temperature 98.3 DEGREES Arterial Blood pH 7.41 (7.35-7.45) Arterial Blood Partial Pressure CO2 36 mmHg (32-37) Arterial Blood Partial Pressure O2 69 mmHg (60-80) Arterial Blood HCO3 23 mmol/L (20-26) Arterial Blood Oxygen Saturation 94 % (92-100) Arterial Blood Base Excess -2.0 mmol/L Tin Test Acceptable Oxygen Liters/Minute 29 White Blood Count 15.7 k/uL (4.5-11.0) Red Blood Count 5.15 M/uL (4.00-5.60) Hemoglobin 11.9 g/dL (14.0-18.0) Hematocrit 37.6 % (42.0-52.0) Mean Corpuscular Volume 73.1 fL (80.0-96.0) Mean Corpuscular Hemoglobin 23.2 pg (26.0-33.0) Mean Corpuscular Hemoglobin Concent 31.7 g/dL (32.0-36.0) Red Cell Distribution Width 19.0 % (11.5-14.5) Platelet Count 407 K/uL (150-450) Mean Platelet Volume 6.9 fL (7.2-11.1) Neutrophils (%) (Auto) 86.0 % (39.4-72.5) Lymphocytes (%) (Auto) 7.4 % (17.6-49.6) Monocytes (%) (Auto) 6.5 % (4.1-12.4) Eosinophils (%) (Auto) 0.0 % (0.4-6.7) Basophils (%) (Auto) 0.1 % (0.3-1.4) Nucleated RBC Relative Count (auto) 0.0 /100WBC Neutrophils # (Auto) 13.6 K/uL (2.0-7.4) Lymphocytes # (Auto) 1.2 K/uL (1.3-3.6) Monocytes # (Auto) 1.0 K/uL (0.3-1.0) Eosinophils # (Auto) 0.0 K/uL (0.0-0.5) Basophils # (Auto) 0.0 K/uL (0.0-0.1) Nucleated RBC Absolute Count (auto) 0.01 K/uL D-Dimer Quantitative (PE/DVT) 0.47 ug/ml (0-0.50) Glomerular Filtration Rate Calc 28.0 Calcium Level 9.7 mg/dl (8.4-10.2) Total Bilirubin 0.4 mg/dl (0.2-1.3) Aspartate Amino Transf (AST/SGOT) 28 U/L (0-35) Alanine Aminotransferase (ALT/SGPT) 39 U/L (0-56) Alkaline Phosphatase 103 U/L (0-126) Troponin I < 0.012 ng/ml Total Protein 7.7 g/dl (6.3-8.2) Albumin 4.6 g/dl (3.5-5.0) Coagulation Test 02/02/19 11:02 D-Dimer Quantitative (PE/DVT) 0.47 ug/ml ED Course/Re-evaluation ED Course Hypoxia likely secondary to acute on chronic undiagnosed lung disease. Patient will also benefit from echocardiogram. Initial troponin is negative after 24 hours of symptoms. I do not think this is secondary to ACS but patient will need serial troponins. Chest x-ray shows inflammation of bronchials, but patient states this is baseline for him. No reason to suggest methemoglobinemia or carbon mooxide poisoning. Carboxyhb sent. Cyanosis improved after being on oxygen in the ED for hours. Doubt PE given he is anticoagulated and negative dimer. Also with worsening renal insufficiency. Will admit for further stabilization, serial troponins, echo. Decision to Disposition Date: Feb 02, 2019 Decision to Disposition Time: 13:29 Depart Departure Latest Vital Signs Vital Signs Date Time Temp Pulse Resp B/P (MAP) Pulse Ox O2 Delivery O2 Flow Rate FiO2 02/02/19 11:04 2.0 02/02/19 11:01 98.3 86 20 166/89 90 Room Air Impression: Primary Impression: Hypoxia Condition: Improved Disposition: Admitted from ER Referrals: NALLELY PENA MD (PCP) DAISHA MAKI MD Feb 02, 2019 12:09
[2019-02-02 14:26] VITALS: BP 148/95
[2019-02-02] MEDS ORDERED: NS(*) 0.9% 1000 ML BAG 1,000 ML IV PRN (14:52)
[2019-02-02] MEDS ORDERED: FLUSH 10 ML SYR IVP PRN (14:55)
[2019-02-02] MEDS ORDERED: ALBUTEROL 2.5 MG/3 ML NEB NEB PRN (14:55)
[2019-02-02] MEDS ORDERED: ACETAMINOPHEN 500 MG TAB PO PRN (14:55)
--- NOTE | 2019-02-02 15:19 | History & Physical ---
History of Present Illness Chief Complaint chest pain, blue lips History of Present Illness 73M presented after noted to have blue lips. PMHx significant for emphysematous changes, CKD, HTN. OA. Reports noting lips slightly blue over last 2 days, no significant SOB but has had increased sputum production as well for 1 week or more. Notes CP with deep inspiration and reproducible on deep breathing, located L chest, non radiating, sharp lasts seconds. In ER imaging shows likely bronchitis, worsening renal function, negative troponin and hypoxia at rest needing supplemental O2. Admitted to rule out cardiac cause and further management and evaluation. History Problems: (1) CHRONIC ATRIAL FIBRILLATION Status: Chronic (2) DVT (deep venous thrombosis) Status: Resolved (3) GERD (gastroesophageal reflux disease) Status: Chronic (4) HTN (hypertension) Status: Chronic (5) CKD (chronic kidney disease), stage IV Status: Chronic Home Meds Active Scripts Febuxostat (ULORIC) 40 Mg Tablet, 1 TAB PO DAILY, #90 TAB 4 Refills Prov:NALLELY PENA MD 06/02/18 Reported Medications Tamsulosin Hcl (FLOMAX) 0.4 Mg Cap.er.24h, 0.4 MG PO, CAP 02/02/19 Esomeprazole Magnesium (NEXIUM) 40 Mg Capsule.dr, 1 CAP PO QDAY, CAP 02/02/19 Calcitriol (CALCITRIOL) 0.25 Mcg Cap, 1 CAP PO 3XW, CAP 10/28/18 Finasteride (PROSCAR) 5 Mg Tablet, 1 TAB PO QDAY 07/22/18 Potassium Chloride (KLOR-CON 10) 10 Meq Tablet.er, 1 TAB PO BID 07/22/18 Amlodipine Besylate (NORVASC) 5 Mg Tablet, 2 TAB PO QDAY, TAB 07/02/18 Apixaban (ELIQUIS) 5 Mg Tablet, 1 TAB PO BID Resume 08/05/18. 02/11/18 Discontinued Reported Medications Docusate Calcium (SURFAK) 240 Mg Capsule, 240 MG PO QDAY, CAPSULE 08/04/18 Oxygen (OXYGEN) Inha, 2 L INH HS, L 2L @ HS with Bipap 07/30/18 Esomeprazole Magnesium (Esomeprazole Magnesium) 40 Mg Capsule.dr, 1 CAP PO BID 12/29/17 Discontinued Scripts Cyclobenzaprine Hcl (CYCLOBENZAPRINE HCL) 10 Mg Tablet, 10 MG PO Q8H PRN for MUSCLE SPASMS, #20 TAB 0 Refills Prov:NALLELY PENA MD 10/22/18 Diclofenac Sodium 1% Gel (VOLTAREN 1% GEL) 100 Gm Gel..gram., 2 GM TOP BID, #1 TUBE Prov:NALLELY PENA MD 09/22/18 Allergies: Coded Allergies: strawberry (Verified Allergy, Mild, THROAT SWELLING , 07/27/18) Patient History: FH: CAD (coronary artery disease) MOTHER Hx Smoking: Yes (2 PPDX15 YEARS) Smoking Status: Former Smoker, Heavy Tobacco Smoker Exposure to Second Hand Smoke?: Yes Caffeine Intake: Coffee, Soda Caffeine/Cups Per Day: 2 LITERS/DAY 1 cup of coffee Hx Alcohol Use: Yes Hx Substance Use Disorder: No (former medical marijuana for chronic back pain) Social Drug Use: Former Social Drugs: Marijuana Review of Systems All Systems Reviewed/Normal: Yes, Except as Noted Constitutional: No Fever, No Chills Cardiovascular: Chest Pain Respiratory: Cough Gastrointestinal: No Nausea, No Vomiting Exam Vital Signs Vital Signs Date Time Temp Pulse Resp B/P (MAP) Pulse Ox O2 Delivery O2 Flow Rate FiO2 02/02/19 14:45 95 Nasal Cannula 2.0 02/02/19 14:26 98.4 65 20 148/95 (112) General Appearance: Alert, Awake, No Acute Distress, Afebrile Neuro: No Gross deficits ENT: Normal Neck: No Masses Cardiovascular: Normal Rhythm & Peripheral Pulses Respiratory: No Respiratory Distress (coarse breathsounds b/l) GI: Abd Soft and Non-Tender : Normal Musculoskeletal: No Weakness/Pain Extremities: Soft and Non Tender, Warm, Pulses, Perfused, Edema (moderate to above knee, in scott hose) Medical Decision Making Data Points Result Diagram: 02/02/19 1102 02/02/19 1102 Assessment and Plan Problems: (1) Hypoxia Status: Acute Assessment & Plan: Appears secondary to bronchitis. Troponin negative, CXR no infiltrate but + bronchial thickening. EKG pending. Supplemental O2 as needed, DuoNeb scheduled, 20mg prednisone started. Previous CT with emphysematous changes, suspect underlying mild COPD now in exacerbation. (2) Bronchitis Assessment & Plan: Likely viral, begin breathing treatments and prednisone. (3) Lrior-lj-ylmqbvf kidney injury Status: Acute Assessment & Plan: Baseline creatinine 1.9,elevated on admission 2.3. IV fluids started, recheck in am. (4) Pleuritic chest pain Status: Acute Assessment & Plan: Troponin negative, CXR with changes consistent with bron chitis, EKG pending. (5) CHRONIC ATRIAL FIBRILLATION Status: Chronic Assessment & Plan: On Eliquis 2.5mg. (6) HTN (hypertension) Status: Chronic Assessment & Plan: Continue amlodipine. (7) GERD (gastroesophageal reflux disease) Status: Chronic Assessment & Plan: On PPI. (8) Leg edema Status: Chronic Assessment & Plan: Secondary to lymphedema per patient, Continue Scott hose. (9) Leukocytosis Venous Thromboembolism Antithrombotics Is Pt On Any Antithrombotics?: Yes Exam Sepsis Risk: No Definite Risk Problem Qualifiers (1) Ftazx-jz-bofqiqz kidney injury: Chronic kidney disease stage: stage 4 (severe) GUNJAN SOLITARIO DO Feb 02, 2019 15:19
--- NOTE | 2019-02-02 15:29 | EKG ---
FACILITY: [facility] PATIENT NAME: MEHRAN KANG : [id number] MR: [id number] V: [id number] EXAM DATE: ORDERING PHYSICIAN: GUNJAN SALAZAR TECHNOLOGIST: KOJO Rodrigues Reason : CP Blood Pressure : / mmHG Vent. Rate : 080 BPM Atrial Rate : 080 BPM P-R Int : 156 ms QRS Dur : 094 ms QT Int : 396 ms P-R-T Axes : 063 057 025 degrees QTc Int : 456 ms Sinus rhythm with premature ventricular complexes Otherwise normal ECG When compared with ECG of 29-DEC-2017 14:46, premature ventricular complexes are now present Non-specific change in ST segment in Lateral leads Confirmed by Gunjan Delacruz ([id number]) on 02/02/2019 4:53:56 PM Referred By: GLYNN Confirmed By:Gunjan Salazar
[2019-02-02] MEDS: predniSONE 20 MG TAB PO SCH (17:06)
[2019-02-02 17:07] VITALS: BP 141/97
[2019-02-02] MEDS: ALBUTEROL/IPRATROPIUM 3 ML NEB NEB SCH ×2 (18:43→18:48)
--- NOTE | 2019-02-02 20:06 | EKG ---
FACILITY: [facility] PATIENT NAME: MEHRAN KANG : [id number] MR: [id number] V: [id number] EXAM DATE: ORDERING PHYSICIAN: GUNJAN VALDEZ TECHNOLOGIST: ADRIEN Test Reason : SCHEDULED CHEST PAIN Blood Pressure : / mmHG Vent. Rate : 072 BPM Atrial Rate : 072 BPM P-R Int : 178 ms QRS Dur : 104 ms QT Int : 460 ms P-R-T Axes : 059 052 026 degrees QTc Int : 503 ms Normal sinus rhythm with sinus arrhythmia Minimal voltage criteria for LVH, may be normal variant Prolonged QT Abnormal ECG When compared with ECG of 02-FEB-2019 10:57, QTc has lengthened Confirmed by Gunjan Delacruz ([id number]) on 02/03/2019 6:55:59 AM Referred By: Confirmed By:Gunjan Valdez
[2019-02-02 20:49] VITALS: BP 132/67
[2019-02-02] MEDS: APIXABAN 2.5 MG TABLET PO SCH (20:50)
[2019-02-03] VITALS (7 sets, daily range): BP systolic 122–138; BP diastolic 57–88
[2019-02-03] MEDS: ALBUTEROL/IPRATROPIUM 3 ML NEB NEB SCH ×4 (05:53→18:30)
[2019-02-03 06:01] LABS: PLATELET COUNT, AUTOMATED 330 K/uL (150-450)
[2019-02-03] MEDS: predniSONE 20 MG TAB PO SCH (08:04)
[2019-02-03] MEDS: amLODIPine BESYL(*) 5 MG TAB PO SCH (08:04)
[2019-02-03] MEDS: FINASTERIDE 5 MG TAB PO SCH (08:04)
[2019-02-03] MEDS: DOXYCYCLINE HYCL 100 MG TAB PO SCH ×2 (08:04→20:52)
[2019-02-03] MEDS: TAMSULOSIN HCL 0.4 MG CAP PO SCH (08:05)
[2019-02-03] MEDS: APIXABAN 2.5 MG TABLET PO SCH ×2 (08:05→20:52)
[2019-02-03] MEDS: PANTOPRAZOLE SOD 40 MG TABEC PO SCH (08:05)
[2019-02-03] MEDS ORDERED: NS(*) 0.9% 1000 ML BAG 1,000 ML IV PRN (09:35)
--- NOTE | 2019-02-03 09:35 | Hospitalist Progress Note ---
Subjective Progress Notes Subjective He reports slightly less dyspnea. No CP this AM. He does not recall any heart racing/palpitations. Physical Exam Vital Signs Date Time Temp Pulse Resp B/P (MAP) Pulse Ox O2 Delivery O2 Flow Rate FiO2 02/03/19 07:48 97.8 74 18 137/67 (90) 92 Nasal Cannula 0.5 02/03/19 05:50 30.0 Intake and Output 02/03/19 07:02 Intake Total 700 ml Balance 700 ml Intake Oral 700 ml # Voids 2 General Appearance: Alert, Awake Cardiovascular: Regular Rate and Rhythm Respiratory: Other (slightly decreased breath sounds bilaterally/no rales or wheezes currently) Chest: No Tenderness GI: Soft and Non-Tender Extremities: Warm, Perfused, Edema (trace edema both feet and ankles) Psych: Alert & Oriented X3 Result Diagram: 02/03/1951802/03/19518 Assessment and Plan Problems: (1) Hypoxia Status: Acute Assessment & Plan: Appears secondary to acute bronchitis (and probably some underlying COPD - mild emphysematous changes seen on CT from last year). Troponin negative x2, CXR no infiltrate, but some bronchial thickening. EKG unremarkable (sinus rhythm). Continue supplemental O2, DuoNeb, prednisone. Will also monitor on telemetry to see if he has intermittent dysrhythmia (a-fib). (2) Bronchitis Assessment & Plan: He has been placed on doxycycline 100mg PO BID. He will continue on supplemental oxygen, respiratory treatments and prednisone. (3) Dkxij-yn-hjhkzor kidney injury Status: Acute Assessment & Plan: Baseline creatinine 1.9. Slightly elevated on admission at 2.3. IV fluids started, recheck is 2.1 this AM. (4) Pleuritic chest pain Status: Acute Assessment & Plan: Symptoms improved. Troponin negative and EKG unremarkable. CXR with changes consistent with bronchitis. He states he may have had similar symptoms with atrial fibrillation in the past. Will monitor. (5) CHRONIC ATRIAL FIBRILLATION Status: Chronic Assessment & Plan: He is currently in sinus rhythm. He has been on Eliquis 5mg BID. Will monitor on telemetry. (6) HTN (hypertension) Status: Chronic Assessment & Plan: Continue amlodipine. This could be causing/contributing to his lower extremity edema. (7) GERD (gastroesophageal reflux disease) Status: Chronic Assessment & Plan: On PPI. (8) Leg edema Status: Chronic Assessment & Plan: Secondary to lymphedema per patient. Amlodipine could be contributing/causing. Continue ADILSON hose. Exam Sepsis Risk: No Definite Risk Problem Qualifiers (1) Tvjvl-wg-bdpuork kidney injury: Chronic kidney disease stage: stage 4 (severe) NANCY TORRES MD Feb 03, 2019 09:34
--- NOTE | 2019-02-03 17:53 | Medical Nutrition Therapy ---
Nutrition Anthropometrics Height (Inches): 73.00 Height (Calculated Centimeters: 185.963831 Weight (Pounds): 260 Weight (Calculated Kilograms): 117.934 BMI: 34.4 Lan Nutrition Score: Adequate Lan Nutrition Risk Score: 21 Dietary Referral Nutrition Risk Factors: Nutrition Risk Comment: Physical Findings Physical Appearance: Obese BMI 30-39 Skin Appearance Skin Appearance: Edema Edema Location Modifier: Both Edema Location: Leg Type of Edema: Degree of Edema: Gastrointestinal Symptoms GI Symtoms: Tube Present: Bowel Sounds: Recent Bowel Pattern: Stool Characteristics: Nutrition/Food History Good Nutritional Diagnosis Nutritional Risk Acuity 2: Chronic Renal Failure Nutritional Risk Acuity 3: Nutrit Anemia, GERD, GI Bleed Past Medical History: Lower GI bleed, chest pain, GERD, CKD stage IV, rectal irritation, CAF, leg edema, gout, altitude sickness, HTN, anemia Nutritional Acuity: 1-High Energy Requirement: 3170 (MSJ AF1.3) Protein Requirement: 71 (71-95 (.6-.8g/kg)) Fluid Requirement: 2955 (2mL/kcal) Nutrition Monitoring & Eval Nutrition Follow-Up: Good Intake RD Patient Assessment Time: [address] Assessment Type: RD Assessment Patient Nutrition Acuity: 1-High Follow Up Date: Feb 05, 2019 Nutritional Comment: 02/03/19: Spoke with pt this afternoon. Pt not following a therapeutic diet at home, besides no added salt. He is a big meat eater. His wt fluctuates between 245-260lbs. No recent wt loss. Given his renal function I would recommend that he follows a low sodium/ lower protein diet, to help preserve renal function. Prior to discharge I will provide some renal diet handouts. Will continue to monitor intake, wt, renal function.KATHRYN BURLESON Feb 03, 2019 17:53
[2019-02-04 04:27] VITALS: BP 116/67
[2019-02-04] MEDS: ALBUTEROL/IPRATROPIUM 3 ML NEB NEB SCH (05:32)
[2019-02-04 05:43] LABS: PLATELET COUNT, AUTOMATED 319 K/uL (150-450)
--- NOTE | 2019-02-04 07:45 | EKG ---
FACILITY: [facility] PATIENT NAME: MEHRAN KANG : [id number] MR: [id number] V: [id number] EXAM DATE: ORDERING PHYSICIAN: NANCY TORRES TECHNOLOGIST: Test Reason : Prolong QT Blood Pressure : / mmHG Vent. Rate : 055 BPM Atrial Rate : 055 BPM P-R Int : 142 ms QRS Dur : 102 ms QT Int : 448 ms P-R-T Axes : 043 050 044 degrees QTc Int : 428 ms Sinus bradycardia Otherwise normal ECG When compared with ECG of 02-FEB-2019 19:14, QT has shortened Confirmed by Marshall Delacruz ([id number]) on 02/04/2019 10:32:34 PM Referred By: Confirmed By:Marshall Salazar
[2019-02-04 08:30] VITALS: BP 137/69
[2019-02-04] MEDS: PANTOPRAZOLE SOD 40 MG TABEC PO SCH (08:32)
[2019-02-04] MEDS: predniSONE 20 MG TAB PO SCH (08:32)
[2019-02-04] MEDS: FINASTERIDE 5 MG TAB PO SCH (08:33)
[2019-02-04] MEDS: TAMSULOSIN HCL 0.4 MG CAP PO SCH (08:33)
[2019-02-04] MEDS: DOXYCYCLINE HYCL 100 MG TAB PO SCH (08:33)
[2019-02-04] MEDS: amLODIPine BESYL(*) 5 MG TAB PO SCH (08:33)
[2019-02-04] MEDS: APIXABAN 2.5 MG TABLET PO SCH (08:33)
[2019-02-04] MEDS ORDERED: DOXY-179 PO (11:14)
[2019-02-04] MEDS ORDERED: PRED20TA6 PO (11:14)
--- NOTE | 2019-02-04 11:25 | Hospitalist Depart ---
Discharge Summary Reason for Hosp/Final Diag: (1) Hypoxia Status: Acute Hospital Course & Plan: Secondary to acute bronchitis (and probably some underlying COPD - mild emphysematous changes seen on CT from last year). Tr oponin negative x2, CXR no infiltrate, but some bronchial thickening. EKG unremarkable (sinus rhythm). Recommend PFT outpatient when recovered from acute infection. He is being discharged with continuous oxygen. (2) Bronchitis Hospital Course & Plan: He has been placed on doxycycline 100mg PO BID. He will continue on supplemental oxygen and prednisone. (3) [id number] kidney injury Status: Acute Hospital Course & Plan: Baseline creatinine 1.9. Slightly elevated on admission at 2.3. At baseline on discharge (4) Pleuritic chest pain Status: Acute Hospital Course & Plan: Symptoms improved. Troponin negative and EKG unremarkable. CXR with changes consistent with bronchitis. (5) CHRONIC ATRIAL FIBRILLATION Status: Chronic Hospital Course & Plan: He is currently in sinus rhythm. He has been on Eliquis 5mg BID. (6) HTN (hypertension) Status: Chronic Hospital Course & Plan: Continue amlodipine. This could be contributing to his lower extremity edema. (7) GERD (gastroesophageal reflux disease) Status: Chronic Hospital Course & Plan: On PPI. (8) Leg edema Status: Chronic Hospital Course & Plan: Secondary to lymphedema per patient. Amlodipine could be contributing/causing. Continue ADILSON hose. Departure Weight (Pounds): 260 Weight (Ounces): 8.0 Result Diagram: 02/04/1951402/04/19514 Condition: Improved Discharge: Home Discharge Instructions Home Meds Active Scripts Doxycycline Hyclate (DOXYCYCLINE HYCLATE) 100 Mg Tablet, 100 MG PO BID for 3 Days, #6 TAB Prov:GUNJAN SOLITARIO DO 02/04/19 Prednisone (PREDNISONE) 20 Mg Tablet, 20 MG PO QDAY for 5 Days, #5 TAB Prov:GUNJAN SOLITARIO DO 02/04/19 Febuxostat (ULORIC) 40 Mg Tablet, 1 TAB PO DAILY, #90 TAB 4 Refills Prov:NALLELY PEAN MD 06/02/18 Reported Medications Tamsulosin Hcl (FLOMAX) 0.4 Mg Cap.er.24h, 0.4 MG PO, CAP 02/02/19 Esomeprazole Magnesium (NEXIUM) 40 Mg Capsule.dr, 1 CAP PO QDAY, CAP 02/02/19 Calcitriol (CALCITRIOL) 0.25 Mcg Cap, 1 CAP PO 3XW, CAP 10/28/18 Finasteride (PROSCAR) 5 Mg Tablet, 1 TAB PO QDAY 07/22/18 Potassium Chloride (KLOR-CON 10) 10 Meq Tablet.er, 1 TAB PO BID 07/22/18 Amlodipine Besylate (NORVASC) 5 Mg Tablet, 2 TAB PO QDAY, TAB 07/02/18 Apixaban (ELIQUIS) 5 Mg Tablet, 1 TAB PO BID Resume 08/05/18. 02/11/18 Discontinued Reported Medications Docusate Calcium (SURFAK) 240 Mg Capsule, 240 MG PO QDAY, CAPSULE 08/04/18 Oxygen (OXYGEN) Inha, 2 L INH HS, L 2L @ HS with Bipap 07/30/18 Esomeprazole Magnesium (Esomeprazole Magnesium) 40 Mg Capsule.dr, 1 CAP PO BID 12/29/17 Discontinued Scripts Cyclobenzaprine Hcl (CYCLOBENZAPRINE HCL) 10 Mg Tablet, 10 MG PO Q8H PRN for MUSCLE SPASMS, #20 TAB 0 Refills Prov:NALLELY PENA MD 10/22/18 Diclofenac Sodium 1% Gel (VOLTAREN 1% GEL) 100 Gm Gel..gram., 2 GM TOP BID, #1 TUBE Prov:NALLELY PENA MD 09/22/18 Diet: Regular Activity: As Tolerated Special Instructions: Discuss getting PFT study with PCP after recovered from acute illness. You were started on oxygen, prednisone and and antibiotic for likely COPD exacerbation. Please call outpatient physical therapy after discharge to reschedule appointments. Copies to: NALLELY PENA MD ; Venous Thromboembolism Antithrombotics Is Pt On Any Antithrombotics?: Yes Problem Qualifiers (1) [id number] kidney injury: Chronic kidney disease stage: stage 4 (severe) GUNJAN SOLITARIO DO Feb 04, 2019 11:25
== END 2019-02-04 12:10 | disposition home or self-care (01) | DRG 682 ==
LOC: ER 11:01 → MED 13:41 → INTOOBSV 13:41 → OBSVTOIN 02-03
PROVIDERS: ADMIT Internal Medicine; ATTEND Internal Medicine
DX: N17.9 Acute kidney failure, unspecified (principal); J96.21 Acute and chronic respiratory failure with hypoxia; J44.0 Chronic obstructive pulmonary disease with (acute) lower respiratory infection; N18.4 Chronic kidney disease, stage 4 (severe); J20.9 Acute bronchitis, unspecified; I12.9 Hypertensive chronic kidney disease with stage 1 through stage 4 chronic kidney disease, or unspecified chronic kidney disease; I48.2 Chronic atrial fibrillation; K21.9 Gastro-esophageal reflux disease without esophagitis; I89.0 Lymphedema, not elsewhere classified; Z79.01 Long term (current) use of anticoagulants; Z87.891 Personal history of nicotine dependence
CPT/HCPCS: 36415; 36600; 71046; 82040; 82247; 82310; 82374; 82435; 82565; 82803; 82947; 84075; 84132; 84155; 84295; 84450; 84460; 84484; 84520; 85025; 85379; 93005; 93306; 94640; 94660; 99284; G0378; J7030; J7512; J7613

== ENCOUNTER 2019-02-08 13:16 | Emergency (ER) | payer MEDICARE, BC ==
[~2019-02-08 13:16] MED LIST changes: +DOXY-179 PO; +ESOM40CA42 PO; +PRED20TA6 PO
[2019-02-08] MEDS ORDERED: ASPIRIN 81 MG CHEW PO ONE (13:30)
--- NOTE | 2019-02-08 13:31 | ER Report ---
History and Physical Time Seen By MD: 13:27 Hx. of Stated Complaint: SOB AND CHEST PAIN LASTING SINCE PRIOR TO PREVIOUS ADMISSION HPI/ROS CHIEF COMPLAINT: Chest pain shortness of breath HISTORY OF PRESENT ILLNESS: 73-year-old male was discharged 2 days prior to presentation from the hospital for pleuritic chest pain shortness of breath returns with the same symptoms by pleuritic chest pain the upper chest bilaterally says it comes and goes episodically sharp stabbing no loosening relieving factors noted says uses supplemental oxygen for COPD for which she said he is burn through 2 or 3 canisters he usually uses 2 L at home while later when he sound said he was out today and felt worsening shortness of breath. Mike castellano has no abdominal pain nausea vomiting diarrhea fever chills does have bilateral lower extremity edema which is chronic he currently is wearing ADILSON hose. She states this is exact sensation and pain he had when he was in the hospital was in for several days had cardiac compresses workup done and was discharged safely. REVIEW OF SYSTEMS: Respiratory: Shortness of breath no cough Cardiovascular: Chest pain or palpitation Gastrointestinal: No vomiting, no abdominal pain. Musculoskeletal: No back pain. Remainder of the 14 system rev: Yes Allergies: Coded Allergies: strawberry (Verified Allergy, Mild, THROAT SWELLING , 02/08/19) Home Meds Active Scripts Doxycycline Hyclate (DOXYCYCLINE HYCLATE) 100 Mg Tablet, 100 MG PO BID for 3 Days, #6 TAB Prov:CATHERINE VALDEZGUNJAN DO 02/04/19 Prednisone (PREDNISONE) 20 Mg Tablet, 20 MG PO QDAY for 5 Days, #5 TAB Prov:CATHERINE VALDEZGUNJAN 02/04/19 Febuxostat (ULORIC) 40 Mg Tablet, 1 TAB PO DAILY, #90 TAB 4 Refills Prov:NALLELY PENA MD 06/02/18 Reported Medications Tamsulosin Hcl (FLOMAX) 0.4 Mg Cap.er.24h, 0.4 MG PO, CAP 02/02/19 Esomeprazole Magnesium (NEXIUM) 40 Mg Capsule.dr, 1 CAP PO QDAY, CAP 02/02/19 Calcitriol (CALCITRIOL) 0.25 Mcg Cap, 1 CAP PO 3XW, CAP 10/28/18 Finasteride (PROSCAR) 5 Mg Tablet, 1 TAB PO QDAY 07/22/18 Potassium Chloride (KLOR-CON 10) 10 Meq Tablet.er, 1 TAB PO BID 07/22/18 Amlodipine Besylate (NORVASC) 5 Mg Tablet, 2 TAB PO QDAY, TAB 07/02/18 Apixaban (ELIQUIS) 5 Mg Tablet, 1 TAB PO BID Resume 08/05/18. 02/11/18 Discontinued Reported Medications Docusate Calcium (SURFAK) 240 Mg Capsule, 240 MG PO QDAY, CAPSULE 08/04/18 Oxygen (OXYGEN) Inha, 2 L INH HS, L 2L @ HS with Bipap 07/30/18 Esomeprazole Magnesium (Esomeprazole Magnesium) 40 Mg Capsule.dr, 1 CAP PO BID 12/29/17 Discontinued Scripts Cyclobenzaprine Hcl (CYCLOBENZAPRINE HCL) 10 Mg Tablet, 10 MG PO Q8H PRN for MUSCLE SPASMS, #20 TAB 0 Refills Prov:NALLELY PENA MD 10/22/18 Diclofenac Sodium 1% Gel (VOLTAREN 1% GEL) 100 Gm Gel..gram., 2 GM TOP BID, #1 TUBE Prov:NALLELY PENA MD 09/22/18 Reviewed Nurses Notes: Yes Old Medical Records Reviewed: Yes Hx Smoking: Yes (2 PPDX15 YEARS) Smoking Status: Former Smoker, Heavy Tobacco Smoker Exposure to Second Hand Smoke?: Yes Hx Substance Use Disorder: No Hx Alcohol Use: Yes Constitutional Vital Sign - Last 24 Hours 02/08/19 02/08/19 02/08/19 02/08/19 13:20 13:30 13:31 14:00 Temp 98.3 Pulse 70 67 69 Resp 18 17 B/P (MAP) 118/73 (88) Pulse Ox 94 96 94 O2 Delivery Nasal Cannula O2 Flow Rate 2.0 02/08/19 02/08/19 14:30 15:00 Pulse 64 65 Resp 13 20 Pulse Ox 93 94 Physical Exam General Appearance: The patient is alert, has no immediate need for airway protection and no current signs of toxicity. [ ] Eyes: Pupils equal and round no injection. Respiratory: Chest is non tender, lungs are clear to auscultation. Cardiac: regular rate and rhythm [ ] Gastrointestinal: Abdomen is soft and non tender, no masses, bowel sounds normal. Musculoskeletal: Neck: Neck is supple and non tender. Extremities have full range of motion and are non tender. Skin: No rashes or lesions. [ ] DIFFERENTIAL DIAGNOSIS: After history and physical exam differential diagnosis was considered for myocardial infarction and 70 pulmonary embolus. Dissection pleuritic muscular skeletal chest pain pleurisy Medical Decision Making Data Points Result Diagram: 02/08/19 1330 02/08/19 1330 Laboratory Hematology Test 02/08/19 13:30 White Blood Count 15.3 k/uL (4.5-11.0) H Red Blood Count 5.34 M/uL (4.00-5.60) Hemoglobin 12.4 g/dL (14.0-18.0) L Hematocrit 38.9 % (42.0-52.0) L Mean Corpuscular Volume 72.8 fL (80.0-96.0) L Mean Corpuscular Hemoglobin 23.1 pg (26.0-33.0) L Mean Corpuscular Hemoglobin Concent 31.8 g/dL (32.0-36.0) L Red Cell Distribution Width 18.9 % (11.5-14.5) H Platelet Count 433 K/uL (150-450) Mean Platelet Volume 6.6 fL (7.2-11.1) L Neutrophils (%) (Auto) 84.0 % (39.4-72.5) H Lymphocytes (%) (Auto) 9.9 % (17.6-49.6) L Monocytes (%) (Auto) 4.6 % (4.1-12.4) Eosinophils (%) (Auto) 0.6 % (0.4-6.7) Basophils (%) (Auto) 0.9 % (0.3-1.4) Nucleated RBC Relative Count (auto) 0.1 /100WBC Neutrophils # (Auto) 12.9 K/uL (2.0-7.4) H Lymphocytes # (Auto) 1.5 K/uL (1.3-3.6) Monocytes # (Auto) 0.7 K/uL (0.3-1.0) Eosinophils # (Auto) 0.1 K/uL (0.0-0.5) Basophils # (Auto) 0.1 K/uL (0.0-0.1) Nucleated RBC Absolute Count (auto) 0.01 K/uL Peripheral Blood Smear Yes Y/N Chemistry Test 02/08/19 13:30 Sodium Level 141 mmol/L (137-145) Potassium Level 3.9 mmol/L (3.5-5.0) Chloride Level 105 mmol/L (98-107) Carbon Dioxide Level 24 mmol/L (22-30) Blood Urea Nitrogen 30 mg/dl (9-21) Creatinine 1.90 mg/dl (0.66-1.25) Glomerular Filtration Rate Calc 34.9 Random Glucose 134 mg/dl (75-110) Calcium Level 9.4 mg/dl (8.4-10.2) Total Bilirubin 0.4 mg/dl (0.2-1.3) Aspartate Amino Transf (AST/SGOT) 41 U/L (0-35) Alanine Aminotransferase (ALT/SGPT) 72 U/L (0-56) Alkaline Phosphatase 104 U/L (0-126) Troponin I < 0.012 ng/ml B-Type Natriuretic Peptide 34 pg/ml (0-100) Total Protein 7.8 g/dl (6.3-8.2) Albumin 4.6 g/dl (3.5-5.0) Coagulation Test 02/08/19 13:30 D-Dimer Quantitative (PE/DVT) 0.43 ug/ml (0-0.50) ED Course/Re-evaluation ED Course ED course 73-year-old male returns after being discharged for chest pain workup is negative his oxygen supply is requiring modifications this was done through a respiratory therapist a hospitalist who saw the patient at bedside diagnosis will be shortness of breath and chest pain Decision to Disposition Date: Feb 08, 2019 Decision to Disposition Time: 16:00 Depart Departure Latest Vital Signs Vital Signs Date Time Temp Pulse Resp B/P (MAP) Pulse Ox O2 Delivery O2 Flow Rate FiO2 02/08/19 15:00 65 20 94 02/08/19 14:00 118/73 (88) 02/08/19 13:31 2.0 02/08/19 13:20 98.3 Nasal Cannula Impression: Primary Impression: Chest pain Condition: Improved Disposition: HOME OR SELF-CARE Referrals: NALLELY PENA MD (PCP) 5 Days Patient Instructions: Chest Pain (DC) ED MARADIAGA MD Feb 08, 2019 13:31
[2019-02-08 13:46] LABS: PLATELET COUNT, AUTOMATED 433 K/uL (150-450)
[2019-02-08 14:00] VITALS: BP 118/73
--- NOTE | 2019-02-08 14:22 | RADIOLOGY IMAGING REPORT ---
FACILITY: [facility] PATIENT NAME: Dima Dey : 1945 MR: [id number] V: [id number] EXAM DATE: ORDERING PHYSICIAN: ED MARADIAGA TECHNOLOGIST: Location: [facility] Patient: Dima Dey : 1945 Visit/Account:[id number] Date of Sevice: 02/08/2019 CHEST PA LAT Indication: cp Comparison: Chest x-ray 02/02/2019. Findings: Lungs: Clear. Mediastinum/pulmonary vasculature: Heart size and pulmonary vasculature are normal. Bones/soft tissues: Normal. IMPRESSION: Clear lungs. Report Dictated By: Grabiel Bradley at 02/08/2019 2:15 PM Report E-Signed By: Grabiel Bradley at 02/08/2019 2:16 PM WSN:LUI
--- NOTE | 2019-02-08 14:36 | EKG ---
FACILITY: [facility] PATIENT NAME: MEHRAN KANG : [id number] MR: [id number] V: [id number] EXAM DATE: ORDERING PHYSICIAN: ED MARADIAGA TECHNOLOGIST: YOHAN Rodrigues Reason : SOB Blood Pressure : / mmHG Vent. Rate : 078 BPM Atrial Rate : 078 BPM P-R Int : 152 ms QRS Dur : 090 ms QT Int : 392 ms P-R-T Axes : 069 071 036 degrees QTc Int : 446 ms Normal sinus rhythm Normal ECG When compared with ECG of 04-FEB-2019 07:33, No significant change was found Confirmed by Marshall Delacruz ([id number]) on 02/08/2019 9:26:23 PM Referred By: ASHWINI Confirmed By:Marshall Salazar
== END 2019-02-08 16:26 | disposition home or self-care (01) ==
LOC: ER 13:32
DX: R07.9 Chest pain, unspecified (principal)
CPT/HCPCS: 36600; 71046; 82803; 83880; 84484; 85025; 85379; 93005; 94667; 99284; A9270; 82040; 82247; 82310; 82374; 82435; 82565; 82947; 84075; 84132; 84155; 84295; 84450; 84460; 84520

== ENCOUNTER 2019-03-05 14:30 | Outpatient (RCR) | payer OTHER, MEDICARE, BC ==
--- NOTE | 2019-02-11 16:05 | PT INITIAL EVALUATION ---
MEDICAL DIAGNOSIS: Bilateral Lower Extremity Lymphedema TREATMENT DIAGNOSIS: Chronic Kidney Disease, Secondary LE Lymphedema DATE OF ONSET: 02/10/19 SUBJECTIVE: Dima is a 73 year old male presenting to physical therapy following recent return of onset of B LE swelling. Pt has previously been treated for secondary lymphedema and typically self manages edema with compression stockings at home. While receiving CDT treatment pt was recently discharged in December secondary to an episode of hospitalization for hypoxia. While in the hospital pt was taken off diuretics and since has reaccumulated fluid in the LE. Pt also has recent history of L pinky toe dislocation prior to hospitalization which has been causing him pain, but is improving. REHAB PROBLEM LIST: Increased Pain Decreased Function Decreased ADL's Decreased Mobility PREVIOUS MEDICAL HISTORY: See EMR OCCUPATION: Retired OBJECTIVE: Pt has bilateral symmetrical swelling from above knee to foot with hyperkeratosis skin changes present around toes. Lopez is tight and shiny L>R. Palpation: Pitting present 3+ on B dorsum and shins. Stemmer's sign (+) on dorsum and digits B. 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 Physical therapy is indicated to improve the above listed deficits to improve pt function with ADL's. Short Term Goals In 4 weeks pt will decrease B ankle circumference, specifically above the malleoli to less than 29 cm and figure 8 of less than 62 cm to improve overall function with ADL's. In 4 weeks pt will have (-) Stemmer's sign on B 1st digits to improve overall function with ADL's. In 4 weeks pt will decrease LLIS score to 28 or less for improved function with ADL's. Patient's Goals Decrease LE swelling in B extremity to be able to wear compression stockings PLAN: Patient to be seen for Manual Therapy/STM/MET Range of Motion Stretching Closed Chain Program Home Exercise Program [facility]./Manual Traction Therapeutic Activities 5x/Week for 4 Weeks If you have any questions, comments, or concerns about this report or plan, please contact me at . Thank you, Joleen Prater, PT, DPT, CLT MTDD
--- NOTE | 2019-02-24 16:50 | PT PLAN OF CARE ---
Physician: Maryanne Hall MD Patient is being seen: 5x/Week Therapist: Joleen Prater, PT, DPT, CLT Medical Diagnosis: Bilateral Lower Extremity Lymphedema Treatment Diagnosis: Chronic Kidney Disease, Secondary LE Lymphedema Date of Onset: 02/10/19 Date of Initial Evaluation: 02/10/19 Date patient was last seen: 02/24/19 Number of treatments: 11 Number of cancellations/No shows: 0 INTERVENTIONS: Manual Therapy/STM/MET Range of Motion Stretching Closed Chain Program Home Exercise Program Mech./Manual Traction Therapeutic Activities Goals: In 4 weeks pt will decrease B ankle circumference, specifically above the malleoli to less than 29 cm and figure 8 of less than 62 cm to improve overall function with ADL's. In 4 weeks pt will have (-) Stemmer's sign on B 1st digits to improve overall function with ADL's. MET In 4 weeks pt will decrease LLIS score to 28 or less for improved function with ADL's. Patient's Goals Decrease LE swelling in B extremity to be able to wear compression stockings Status of Patient's Goals: 1/3 MET, 2/3 In Progress Patient Compliance: Good Prognosis: Reasons for continuing therapy: Dima shows good reductions following recent regain of edema. Following wrapping with focus on dorsum of foot and toes pt shows decreased protein content with (-) Stemmer's sign B at this time. Lingering edema is present in on the dorsum L>R, and ankle region for which a couple more treatments of MLD with compression stockings should continue to reduce. OBJECTIVE: Pt has bilateral symmetrical swelling from above knee to foot with hyperkeratosis skin changes present around toes. Palpation: (-) Stemmer's sign on B dorsum and 1st digits. Other Objective Findings: Circumferential Measures in cm (R,L): 1st digit: 11, 10.6, 2nd: 8.8, 8.3, Dorsum: 29, 28.9, Arch: 30, 32.2, Heel: 40.2, 42.2, Abv mal: 34, 35.4, figure-8: 70, 71.1, calf: 43.2, 45.7, below knee: 41.9, 41.4, abv knee: 47.2, 47.7 If you have any questions, please contact me at . Thank you, Joleen Prater, PT, DPT, CLT MTDD
[~2019-03-05 14:30] MED LIST changes: +POTA20TA10 PO
--- NOTE | 2019-03-05 15:30 | PT PLAN OF CARE ---
Physician: Maryanne Hall MD Patient is being seen: 5x/Week Therapist: Joleen Prater, PT, DPT, CLT Medical Diagnosis: Bilateral Lower Extremity Lymphedema Treatment Diagnosis: Chronic Kidney Disease, Secondary LE Lymphedema Date of Onset: 02/10/19 Date of Initial Evaluation: 02/10/19 Date patient was last seen: 03/05/19 Number of treatments: 15 Number of cancellations/No shows: 0 INTERVENTIONS: Manual Therapy/STM/MET Range of Motion Stretching Closed Chain Program Home Exercise Program Mech./Manual Traction Therapeutic Activities Goals: In 4 weeks pt will decrease B ankle circumference, specifically above the malleoli to less than 29 cm and figure 8 of less than 62 cm to improve overall function with ADL's. In 4 weeks pt will have (-) Stemmer's sign on B 1st digits to improve overall function with ADL's. MET In 4 weeks pt will decrease LLIS score to 28 or less for improved function with ADL's. Patient's Goals Decrease LE swelling in B extremity to be able to wear compression stockings Status of Patient's Goals: 1/3 MET Patient Compliance: Good Prognosis: Reasons for discharge from therapy: Dima is to discharge from physical therapy at this time secondary to pt preference and progression towards compression stocking use. At the time of discharge Dima showed significant reductions in circumferential volume of B LE with decreased protein content resulting in no longer pitting and (-) Stemmer's sign on dorsum and digits. Though further reductions were likely possible pt preferred to continue with compression stocking use at this time. Upon discharge pt is to continue with 30- 40mmHg compression daily with routine skin care and maintenance. OBJECTIVE: Palpation: (-) Stemmer's sign on B dorsum and 1st digits. Other Objective Findings: Circumferential Measures in cm (R,L) EVAL: 1st digit: 11, 10.6, 2nd: 8.8, 8.3, Dorsum: 29, 28.9, Arch: 30, 32.2, Heel: 40.2, 42.2, Abv mal: 34, 35.4, figure-8: 70, 71.1, calf: 43.2, 45.7, below knee: 41.9, 41.4, abv knee: 47.2, 47.7 Circumferential Measures in cm (R,L) Discharge: 1st digit: 9.9, 9.9, 2nd: 7.2, 6, Dorsum: 27.5, 27.5, Arch: 26.8, 27.5, Heel: 36.9, 37.5, Abv mal: 29.9, 30.1, figure-8: 62.5, 62.1, calf: 40.2, 41.1, below knee: 40, 40.5, abv knee: 46, 45.5 If you have any questions, please contact me at . Thank you, Joleen Prater, PT, DPT, CLT MTDD
== END 2019-03-05 16:16 | disposition home or self-care (01) ==
LOC: PT 14:30
PROVIDERS: ATTEND Family Medicine
DX: I89.0 Lymphedema, not elsewhere classified (principal); N18.9 Chronic kidney disease, unspecified
CPT/HCPCS: 97161